=== PATIENT | female | born 1945 | race Caucasian/White ===

== ENCOUNTER → 2017-07-16 15:29 | Outpatient (CLI) | payer MEDICARE, SELFPAY | PROVIDERS: Family Provider Family Medicine; PCP Family Medicine; Visit Provider Family Medicine | DX: R30.0 Dysuria (principal) | CPT/HCPCS: 87086; 87088 ==

== ENCOUNTER 2017-08-05 19:05 | Emergency (ER) | payer MEDICARE, SELFPAY ==
[2017-08-05 19:08] VITALS: BP 169/74; PULSE 85; RESP 14; TEMP 37.1; O2SAT 97; BMI 25.2
[2017-08-05 19:25] VITALS: BP 142/71; PULSE 79; RESP 16; O2SAT 96
--- NOTE | 2017-08-05 19:28 | EKG12_ITS ---
Test Reason : REPEAT Blood Pressure : / mmHG Vent. Rate : 076 BPM Atrial Rate : 076 BPM P-R Int : 194 ms QRS Dur : 080 ms QT Int : 376 ms P-R-T Axes : -04 032 026 degrees QTc Int : 423 ms Normal sinus rhythm Normal ECG Confirmed by MAX KING MD ([id number]), content editor ANDREW LAMA ([id number]) on 08/07/2017 2:16:01 PM Referred By: FABIEN Confirmed By:MAX KING MD
[2017-08-05 19:54] LABS: Absolute Neutrophil Count 7.2 X10^3/uL (2.0-7.7); Basophil# 0.03 X10^3/uL; Basophil% 0.3 % (0-1); Eosinophil# 0.27 X10^3/uL; Eosinophils% 2.7 % (0-5); Hematocrit 37.3 % (37-47); Hemoglobin 11.9 g/dl (12.0-15.0); Lymphocyte % 16.8 % (19-41); Mean Corp Hgb Conc 31.9 g/gl (32-36); Mean Corpuscular Hgb 28.2 pg (27.0-32.0); Mean Corpuscular Volume 88.4 fL (81-99); Mean Platelet Vol. 9.4 fl (6.2-12.0); Monocyte# 0.85 X10^3/uL; Monocyte% 8.4 % (0-10); Neutrophil # 7.23 X10^3/uL (2.7-7.7); Neutrophil % 71.6 % (47-70); Platelet Count 380 K/mm3 (150-450); RBC Distribution Width CV 13.8 % (11.6-14.6); RBC Distribution Width SD 44.6 fl (35.1-43.9); Red Blood Count 4.22 M/mm3 (4.2-5.4); White Blood Count 10.1 K/mm3 (4.4-11.0)
[2017-08-05 19:55] LABS: POSITIVE COUNT NO; POSITIVE DIFFERENTIAL NO; POSITIVE MORPHOLOGY NO
--- NOTE | 2017-08-05 19:55 | RAD_ITS ---
STUDY: X-RAY CHEST REASON FOR EXAM: Female, 72 years old. PATIENT STATES WAS HAVING CHEST PAINS EARLIER WHICH RADIATING UP INTO JAW, BUT SEEMS TO BE GONE NOW. HX OF LEFT BREAST CA IN 1999 WITH A LUMPECTOMY. TECHNIQUE: Frontal and lateral views of the chest. COMPARISON: January 25, 2015 FINDINGS: Chronic appearing increased interstitial lung markings. The lung rivas are hyperexpanded. There is no demonstrated pleural abnormality. Normal heart size. Normal mediastinum and jeremías. Normal visualized pulmonary arteries. There is atherosclerotic calcification of the aortic arch with tortuosity. There are diffuse degenerative changes of the visualized thoracic spine. There is degenerative osteoarthritis of the bilateral shoulders. There is no demonstrated abnormality of the visualized soft tissue structures of the upper abdomen. RAD/Chest PA and Lateral IMPRESSION: There are no acute findings. Electronically Signed: Nagi Darden MD at 20:09 EDT , Service support ,
[2017-08-05 20:08] LABS: Anion Gap 10 (5-15); BUN 24 mg/dL (7-18); BUN/Creat Ratio 34.6 RATIO (10-20); Calcium,Total 8.9 mg/dL (8.5-10.1); Chloride 102 mmol/L (98-107); Creatinine, Serum 0.69 mg/dL (0.55-1.02); EST Glomerular Filtration Rate 88 mL/min (>60); Est Glom Filt Rate - Afr Amer 106 mL/min (>60); Estimated Creatinine Clearance 39.04 ml/min; Glucose 90 mg/dL (74-106); Potassium 4.1 mmol/L (3.5-5.1); Sodium Level 138 mmol/L (136-145)
[2017-08-05 20:19] VITALS: BP 154/73; PULSE 78; RESP 20; O2SAT 96
--- NOTE | 2017-08-05 20:44 | ED.DCSUM_ITS ---
- ER Visit Summary Date of Service: 08/05/17 Chief Complaint: Chest tightness History of Present Illness: Patient is an elderly woman who presents with chest tightness that started on the left side went to the right. There was radiation to the jaw bilaterally. She denied any associated symptoms. This occurred at rest. Pain lasted greater than 1 hour. States she had a similar presentation approximate 1 year ago and was seen at the [facility] facility. She had a workup at that time which was unremarkable. Her workup did include a stress test. She denies fever, chills night sweats. Denies visual, ocular or auditory symptoms. She denies palpitations or racing heart rate. She denies shortness of breath, cough, dyspnea on exertion or orthopnea. She denies abdominal pain, nausea, vomiting or diarrhea. She denies black or maroon stool. She denies any urologic symptoms. She denies myalgias arthralgias or back pain. She denies weakness, paresthesia, anesthesia motor weakness. She denies any problems with bleeding or bruising easily. She denies urticaria or angioedema. She does have history of asthma and hypertension. She did have a PE status post foot surgery several years ago. Physical Examination: Vital signs remarkable for slight elevation blood pressure 142/71. She pleasant woman in no distress. States she is presently pain-free. The time EKG was done her pain had resolved. HEENT exam is unremarkable. Heart is regular without murmur, gallop or rub. S1 and S2 are normal. Lungs are clear to auscultation with good movement of air bilaterally. There is no reproducible chest pain. Given is soft nontender with no hepatosplenomegaly. Negative Voss sign. There is no asymmetry, swelling, discoloration, leg vein distention, palpable cords or tenderness along the distribution of the deep venous system. Patient is alert and oriented ?3. Motor is 5 over 5. Sensory is intact. DTRs are symmetric with no clonus or Babinski sign. Cranial 2 through 12 are intact. Cerebellar testing is normal. Test Results: EKG revealed a sinus rhythm rate of 84 and normal. This is care. 2 prior and unchanged. Chest x-ray was obtained and reveals normal mediastinum, discolored silhouette and lung parenchyma. Initial blood work was unremarkable including troponin. Repeat EKG normal sinus rhythm rate of 78 and normal. Three-hour troponin less than 0.02 with a delta of 0. Emergency Department Course and Treatment: Valuate patient's chest tightness EKG , chest x-ray appropriate blood work was obtained to evaluate for cardiac versus pulmonary versus GI. After discussing options will obtain a 3 hour troponin EKG. This was ordered for 20-30. Treatment Plan: Heart score is 2. With 2 normal EKGs to normal troponin and history of similar episode a year ago with negative workup will discharge to follow-up with her primary care physician Dr. Calhoun Disposition: Discharged to home in stable condition Impression: Chest pain uncertain etiology History of hypertension History of asthma This note was generated with [employer] dictation software. It may contain incorrect words, spelling, and punctuation that were not noted in review of the chart prior to signing ED Disposition - Plan for ED Patient: Disposition: Home or Assisted Living Chief Complaint: Chest Pain Instructions: ED Chest Pain Atypical Unkn Cause Referrals: Jani Alfaro MD [Primary Care Provider] - 2 Days
[2017-08-05 21:54] VITALS: BP 131/70; PULSE 77; RESP 20; O2SAT 94
--- NOTE | 2017-08-05 22:32 | EKG12_ITS ---
Test Reason : CP Blood Pressure : / mmHG Vent. Rate : 084 BPM Atrial Rate : 084 BPM P-R Int : 168 ms QRS Dur : 086 ms QT Int : 356 ms P-R-T Axes : 075 027 014 degrees QTc Int : 420 ms Normal sinus rhythm Normal ECG Confirmed by MAX KING MD ([id number]), assistant film editor ANDREW LAMA ([id number]) on 08/07/2017 2:35:00 PM Referred By: FABINE Confirmed By:MAX KING MD
[2017-08-05 22:43] VITALS: BP 122/77; PULSE 75; RESP 16; O2SAT 96
[2017-08-05 23:15] VITALS: BP 129/73; PULSE 77; RESP 18; O2SAT 94
== END 2017-08-05 23:15 | disposition home or self-care (01) ==
PROVIDERS: Emergency Provider Emergency Medicine; Family Provider Family Medicine; PCP Family Medicine
DX: R07.9 Chest pain, unspecified (principal); I10 Essential (primary) hypertension; J45.909 Unspecified asthma, uncomplicated
CPT/HCPCS: 36415; 71046; 80048; 84484; 85025; 93005; 99284; A4216

== ENCOUNTER → 2017-08-27 06:56 | Outpatient (CLI) | payer MEDICARE, SELFPAY ==
--- NOTE | 2017-08-27 07:01 | CT_ITS ---
STUDY: CT CHEST WITH CONTRAST REASON FOR EXAM: Female, 72 years old. History of lung nodules. RADIATION DOSAGE (If Supplied By Facility): CTDIvol = ( 8.83 ) mGy, DLP = ( 264.35 ) mGycm TECHNIQUE: Transaxial imaging was performed following intravenous administration of 100 ml of Isovue 300 contrast material. Multiplanar coronal and sagittal images were reformatted. Individualized dose optimization techniques were used for this CT. COMPARISON: Comparison is made with prior study dated April 16, 2017. FINDINGS: Small benign-appearing bilateral axillary lymph nodes. Stable degree of mild bilateral apical scarring. The previously seen 1.4 cm x 1 cm x 1.3 cm nodular density along the anterior medial aspect of the right upper lobe has cleared. Minimal residual changes persist suggestive of possible scarring. No new pulmonary nodule is seen. Stable mild degree of linear scarring at the lung bases. There is no demonstrated pleural abnormality. There are calcifications of the coronary arteries. Normal mediastinum. Normal hilar regions. Normal enhanced pulmonary arteries. There is atherosclerotic calcification of the aortic arch. There are degenerative changes of the thoracic spine. There is no demonstrated abnormality of the visualized upper abdomen. CT/Chest WITH Contrast IMPRESSION: Mild scarring at the lung apices. The previously seen irregular nodule in the anterior medial aspect of the right upper lobe has cleared. Electronically Signed: Anil Carlin MD at 8:38 EDT Tel [phone], Service support ,
== END ==
PROVIDERS: Family Provider Family Medicine; PCP Family Medicine; Visit Provider Family Medicine
DX: R91.8 Other nonspecific abnormal finding of lung field (principal)
CPT/HCPCS: 71260

== ENCOUNTER → 2017-11-19 08:40 | Outpatient (CLI) | payer MEDICARE, SELFPAY | PROVIDERS: Family Provider Family Medicine; PCP Family Medicine; Visit Provider Family Medicine | DX: R13.10 Dysphagia, unspecified (principal); M89.9 Disorder of bone, unspecified; M94.9 Disorder of cartilage, unspecified | CPT/HCPCS: 74220 ==

== ENCOUNTER → 2017-11-27 12:56 | Outpatient (CLI) | payer MEDICARE, SELFPAY | PROVIDERS: Family Provider Family Medicine; PCP Family Medicine; Visit Provider Family Medicine | DX: M89.9 Disorder of bone, unspecified (principal); M94.9 Disorder of cartilage, unspecified | CPT/HCPCS: 77080 ==

== ENCOUNTER → 2017-12-20 10:03 | Outpatient (CLI) | payer MEDICARE, SELFPAY ==
[2017-12-20 12:52] LABS: Anion Gap 7 (5-15); BUN 20 mg/dL (7-18); BUN/Creat Ratio 25.1 RATIO (10-20); Calcium,Total 9.2 mg/dL (8.5-10.1); Chloride 104 mmol/L (98-107); Cholesterol 205 mg/dL (200); EST Glomerular Filtration Rate 75 mL/min (>60); Est Glom Filt Rate - Afr Amer 90 mL/min (>60); Glucose 91 mg/dL (74-106); High Density Lipoprotein 45 mg/dL; Potassium 4.1 mmol/L (3.5-5.1); Sodium Level 140 mmol/L (136-145); Thyroid Stim Hormone (TSH) 0.89 uIU/mL (0.358-3.74); Triglycerides 106 mg/dL; Very Low Density Lipoprotein 21 mg/dL (5-40)
[2017-12-21 08:29] LABS: Vitamin D,25 Hydroxy 24.2 ng/mL (29.95-100.01)
== END ==
PROVIDERS: Family Provider Family Medicine; PCP Family Medicine; Visit Provider Family Medicine
DX: E03.9 Hypothyroidism, unspecified (principal); I10 Essential (primary) hypertension; M89.9 Disorder of bone, unspecified; M94.9 Disorder of cartilage, unspecified
CPT/HCPCS: 36415; 80048; 80061; 82306; 84443

== ENCOUNTER → 2018-04-03 10:59 | Outpatient (CLI) | payer MEDICARE, SELFPAY ==
--- NOTE | 2018-04-03 11:06 | RAD_ITS ---
STUDY: X-RAY - RIGHT HIP REASON FOR EXAM: Female, 72 years old. TECHNIQUE: 2 views of the hip. COMPARISON: None. FINDINGS: There is narrowing and sclerosis involving the right hip joint consistent with osteoarthritis. 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
== END ==
PROVIDERS: Family Provider Family Medicine; PCP Family Medicine; Referring Provider Family Medicine; Visit Provider Family Medicine
DX: M25.559 Pain in unspecified hip (principal)
CPT/HCPCS: 73502

== ENCOUNTER → 2018-08-21 11:41 | Outpatient (CLI) | payer MEDICARE, SELFPAY ==
--- NOTE | 2018-08-21 11:49 | RAD_ITS ---
STUDY: X-RAY CHEST REASON FOR EXAM: Female, 73 years old. Fever and cough TECHNIQUE: PA and lateral views of the chest. COMPARISON: 08/05/2017 FINDINGS: The lungs are clear and expanded. There is no demonstrated pleural abnormality. Normal size heart. Normal mediastinum and jeremías. Normal visualized pulmonary arteries. There is atherosclerotic calcification of the aortic arch with tortuosity. Normal visualized thoracic spine. Normal visualized ribs, clavicles, and shoulders. There is no demonstrated abnormality of the visualized soft tissue structures of the upper abdomen. RAD/Chest PA and Lateral IMPRESSION: Normal x-ray examination of the chest. Electronically Signed: Jakob Rubio MD at 12:29 EDT , Service support ,
== END ==
PROVIDERS: Family Provider Family Medicine; PCP Family Medicine; Referring Provider Family Medicine; Visit Provider Family Medicine
DX: J18.9 Pneumonia, unspecified organism (principal)
CPT/HCPCS: 71046

== ENCOUNTER → 2018-11-05 14:28 | Outpatient (CLI) | payer MEDICARE, SELFPAY ==
[2018-11-05 16:25] LABS: Anion Gap 6 (5-15); BUN 20 mg/dL (7-18); BUN/Creat Ratio 22.5 RATIO (10-20); Calcium,Total 9.2 mg/dL (8.5-10.1); Chloride 105 mmol/L (98-107); Cholesterol 221 mg/dL (200); Creatinine, Serum 0.89 mg/dL (0.55-1.02); EST Glomerular Filtration Rate 66 mL/min (>60); Est Glom Filt Rate - Afr Amer 80 mL/min (>60); Glucose 81 mg/dL (74-106); High Density Lipoprotein 55 mg/dL; Potassium 3.7 mmol/L (3.5-5.1); Sodium Level 141 mmol/L (136-145); Thyroid Stim Hormone (TSH) 1.05 uIU/mL (0.358-3.74); Triglycerides 123 mg/dL; Very Low Density Lipoprotein 25 mg/dL (5-40)
== END ==
PROVIDERS: Family Provider Family Medicine; PCP Family Medicine; Referring Provider Family Medicine; Visit Provider Family Medicine
DX: I10 Essential (primary) hypertension (principal); M85.80 Other specified disorders of bone density and structure, unspecified site
CPT/HCPCS: 80048; 80061; 82306; 84443

== ENCOUNTER 2019-03-31 07:10 | Emergency (ER) | payer MEDICARE, SELFPAY ==
[2019-03-31 07:11] VITALS: BP 168/91; PULSE 91; RESP 18; TEMP 36.7; O2SAT 97; BMI 26.6
--- NOTE | 2019-03-31 07:28 | EKG12_ITS ---
Test Reason : CP Blood Pressure : / mmHG Vent. Rate : 093 BPM Atrial Rate : 093 BPM P-R Int : 208 ms QRS Dur : 084 ms QT Int : 364 ms P-R-T Axes : 041 030 028 degrees QTc Int : 452 ms Normal sinus rhythm Normal ECG Confirmed by MAX KING MD ([id number]), editor index ANDREW LAMA ([id number]) on 04/03/2019 9:23:00 AM Referred By: Confirmed By:MAX KING MD
[2019-03-31 07:32] VITALS: BP 165/75; PULSE 85; RESP 14; O2SAT 97
[2019-03-31 07:37] LABS: Hematocrit 36.2 % (37-47); Hemoglobin 11.6 g/dL (12.0-15.0); Mean Corpuscular Hgb 28.6 pg (27.0-32.0); Mean Corpuscular Volume 89.4 fL (81-99); Mean Platelet Vol. 9.6 fl (6.2-12.0); Platelet Count 345 K/mm3 (150-450); RBC Distribution Width CV 12.7 % (11.6-14.6); RBC Distribution Width SD 41.7 fl (35.1-43.9); Red Blood Count 4.05 M/mm3 (4.2-5.4); White Blood Count 5.3 K/mm3 (4.4-11.0)
--- NOTE | 2019-03-31 07:45 | ED.VIS.GEN ---
History of Present Illness Chief Complaint: Chest Pain Informant: Patient, Significant Other Onset: Days Quality: Set 3 days ago Location: Right lower costal margin with radiation to left anterior chest Current Severity: - - Initially no symptoms. Patient had several episodes during H&P Maximum Severity: Mild Worsened by: Nothing Relieved by: Nothing Narrative: Patient is a 66-year-old woman with history of hypertension and elevated cholesterol on no cholesterol medication who presents with fleeting right-sided chest pain that she locates lower right sternal border that lasts seconds. She states it has radiated to the left side. There is no associated symptoms. There is no radiation to the neck back or extremities. The pain is not associated with activity, change in position or food. There is no history of hiatal hernia or reflux. She denies black or maroon stool. She does have remote history of PE, 6 years ago after foot surgery. She also reports remote history of problem with vision. She cannot be specific whether this was unilateral or blurred vision or partial loss of vision. She was seen by her local edger machine setter and referred to Dr. Boateng who is affiliated with the [facility]. No etiology was determined. Prior similar symptoms: No Recent Illness/Hospitalization: No - Past Medical History (1) History of hypertension Status: Acute (2) History of elevated cholesterol Status: Acute Past Medical History - Allergies and Home Meds Allergies/Adverse Reactions: Allergies No Known Allergies Allergy (Verified 03/31/19 07:13) Primary Care Physician: Jani Alfaro MD [Primary Care Provider] - Prior records reviewed: Yes Surgical History: noncontributory Lives: Spouse/ Significant Other Smoking Status: Never smoker Alcohol: Rare Drugs: None Review of Systems General: Denies: Chills, Fever, Sweats Eyes: Reports: - - Is read HPI. Denies: Visual changes - bilaterally, Blurred Vision - bilaterally, Diplopia ENT: Denies: Rhinorrhea, Sore throat Cardiovascular: Reports: Chest pain Respiratory: Denies: Dyspnea, Cough, Dyspnea on exertion Gastrointestinal: Denies: Abdominal pain, Nausea, Vomiting, Diarrhea, Melena, Hematochezia Genitourinary: Denies: Dysuria, Hematuria, Frequency Musculoskeletal: Denies: Myalgias, Arthralgias, Neck pain, Back pain, Swelling, Extremity Pain Skin: Denies: Rash, Wounds Neurological: Denies: Headache, Weakness, Numbness Hematologic: Denies: Easy bruising, Easy bleeding Allergy: Denies: Uticaria Physical Exam Vital Signs/Narrative: Vital Signs Temp Pulse Resp BP Pulse Ox 03/31/19 07:32 85 14 165/75 H 97 03/31/19 07:11 98.1 F 91 18 168/91 H 97 Inital Vital Signs reviewed: Yes General: Well nourished, Well developed, No Acute Distress Head: Normocephalic, Atraumatic Eyes: Perrl, EOMI. Negative for: Pale conjunctiva, Scleral icterus ENT: Moist mucous membranes, No rhinorrhea Neck: Supple, Nontender, No lymphadenopathy, No JVD Cardiovascular: Regular rate, Regular rhythm, No murmurs, Normal S1, Normal S2 Respiratory: No distress, CTA bilaterally, Chest nontender Abdomen: Soft, Nontender, Nondistended, Normal bowel sounds, No masses Back: Nontender, Normal Inspection Extremities: Nontender, No edema, - - There is no discoloration, swelling, asymmetry, leg vein distention or palpable cords. Skin: Normal color, No rash Neurological: Alert, Oriented x3, Cranial nerves II-XII grossly intact, Normal Strength, Normal Sensation Psychological: Normal affect, Normal Mood Diagnostic/Tx/Re-eval Laboratory Results 03/31/19 03/31/19 07:25 07:25 WBC 5.3 RBC 4.05 L Hgb 11.6 L Hct 36.2 L MCV 89.4 MCH 28.6 MCHC 32.0 RDW Std Deviation 41.7 RDW Coeff of Ankush 12.7 Plt Count 345 MPV 9.6 Sodium 139 Potassium 3.9 Chloride 104 Carbon Dioxide 30.0 Anion Gap 5 BUN 24 H Creatinine 0.92 Estim Creat Clear Calc 41.79 Est GFR (MDRD) Af Amer 76 Est GFR (MDRD) Non-Af 63 BUN/Creatinine Ratio 26.0 H Glucose 93 Calcium 8.8 Troponin I < 0.015 Troponin is normal. Renal function is normal. There is mild anemia with an H&H 11.6 and 36.2 which is insignificant. - Rhythm Strip Rhythm Strip: Sinus Rhythm Rate: 88 Ectopy: PAC(s) - EKG Initial EKG Interpretation: Sinus Rhythm - Sinus rhythm with a ventricular rate of 93. VA interval is 208 ms. QRS duration 84 ms. QT duration is 364 ms. The axis is normal. The EKG is normal. - Medical Decision Making With fleeting chest pain atypical for cardiac. This may represent musculoskeletal, pain of unknown cause doubt pleurisy. Since patient is an elderly woman with history of hypertension we will obtain a troponin in the event this is an atypical cardiac presentation. X-ray was not obtained since there were no auscultatory findings. CBC was obtained to assess for anemia. Patient's heart score is 3 for 1 risk factor and age ED Disposition - Plan for ED Patient: Disposition: Home or Assisted Living Diagnosis: Chest pain Instructions: CHEST PAIN, NonCardiac Referrals: Jani Alfaro MD [Primary Care Provider] - 3-5 Days if not improving
[2019-03-31 07:51] LABS: Anion Gap 5 (5-15); BUN 24 mg/dL (7-18); Calcium,Total 8.8 mg/dL (8.5-10.1); Chloride 104 mmol/L (98-107); Creatinine, Serum 0.92 mg/dL (0.55-1.02); EST Glomerular Filtration Rate 63 mL/min (>60); Est Glom Filt Rate - Afr Amer 76 mL/min (>60); Estimated Creatinine Clearance 41.79 ml/min; Glucose 93 mg/dL (74-106); Potassium 3.9 mmol/L (3.5-5.1); Sodium Level 139 mmol/L (136-145)
[2019-03-31 08:17] VITALS: BP 145/78; PULSE 62; RESP 15; O2SAT 98
== END 2019-03-31 08:17 | disposition home or self-care (01) ==
PROVIDERS: Emergency Provider Emergency Medicine; Family Provider Family Medicine; PCP Family Medicine
DX: R07.89 Other chest pain (principal); E78.00 Pure hypercholesterolemia, unspecified; I10 Essential (primary) hypertension; Z86.711 Personal history of pulmonary embolism
CPT/HCPCS: 80048; 84484; 85027; 93005; 99285; A4216

== ENCOUNTER → 2019-07-18 08:04 | Outpatient (CLI) | payer MEDICARE, SELFPAY ==
[2019-06-16 08:16] VITALS: BMI 27.2
--- NOTE | 2019-07-18 14:22 | PFT ---
INTRODUCTION: The patient is a 74-year-old female that presents for pulmonary function studies secondary to a diagnosis of asthma. Respiratory therapy reports good patient effort. Bronchodilators were used during testing. INTERPRETATION: Forced expiration spirometry demonstrates the presence of a moderate large airways obstructive ventilatory defect. There was a significant response to aerosolized bronchodilators noted. Spirograms are of good quality and do not plateau indicating slow emptying of the lungs. Body plus tomography was performed and reveals an elevated TLC and RV, indicative of underlying hyperinflation and air trapping. Diffusing capacity by single breath CO is preserved at 94% of predicted. IMPRESSION: Partially reversible moderate large airways obstructive ventilatory defect with associated hyperinflation and air trapping. Diffusing capacity is preserved.
== END ==
PROVIDERS: PCP Family Medicine; Referring Provider Internal Medicine Critical Care Medicine; Visit Provider Internal Medicine Critical Care Medicine
DX: J45.909 Unspecified asthma, uncomplicated (principal)
CPT/HCPCS: 94060; 94726; 94729

== ENCOUNTER → 2019-11-24 09:20 | Outpatient (CLI) | payer MEDICARE, SELFPAY ==
[2019-10-07 05:41] VITALS: BMI 27.4
[2019-11-24 12:41] LABS: Vitamin D,25 Hydroxy 33.6 ng/mL
[2019-11-24 12:51] LABS: Anion Gap 5 (5-15); BUN 17 mg/dL (7-18); BUN/Creat Ratio 19.4 RATIO (10-20); Chloride 104 mmol/L (98-107); Cholesterol 261 mg/dL (200); Creatinine, Serum 0.88 mg/dL (0.55-1.02); EST Glomerular Filtration Rate 67 mL/min (>60); Est Glom Filt Rate - Afr Amer 81 mL/min (>60); Glucose 86 mg/dL (74-106); High Density Lipoprotein 51 mg/dL; Potassium 3.8 mmol/L (3.5-5.1); Sodium Level 141 mmol/L (136-145); Thyroid Stim Hormone (TSH) 1.46 uIU/mL (0.358-3.74); Triglycerides 163 mg/dL; Very Low Density Lipoprotein 33 mg/dL (5-40)
== END ==
PROVIDERS: PCP Family Medicine; Referring Provider Family Medicine; Visit Provider Family Medicine
DX: M85.80 Other specified disorders of bone density and structure, unspecified site (principal); I10 Essential (primary) hypertension
CPT/HCPCS: 36415; 80048; 80061; 82306; 84443

== ENCOUNTER → 2019-12-02 08:50 | Outpatient (CLI) | payer MEDICARE, SELFPAY ==
[2019-10-07 05:41] VITALS: BMI 27.4
--- NOTE | 2019-12-02 08:55 | BD_ITS ---
STUDY: DUAL ENERGY X-RAY ABSORPTIOMETRY / DXA REASON FOR EXAM: Female, 74 years old. LEGAL AID -- HX OF BREAST CANCER AND HX OF TAMOXIFEN -- USES STEROID INHALER NEEDED -- HX OF TAKING THYROID MEDS- NO LONGER ON -- TAKES CALCIUM AND MULTIVITAMIN -- HX OF TAKING FOSAMAX -- DOES NO EXERCISE -- FAMILY HX OF OSTEO- MOTHER -- HX OF RIGHT HIP REPLACEMENT -- JAYNE OF 1 INCH TECHNIQUE: Bone Mineral Density (BMD) measurements of lumbar spine and left hip were obtained. COMPARISON: Comparison is made with prior examination dated 11/27/2017. FINDINGS: Lumbar Spine (L1-L4): g/cm2 (1.037) / T-score (-1.1) / Z-score (0.7) Findings are suggestive of osteopenia with a low fracture risk. Left Femur Total: g/cm2 (0.750) / T-score (-2.0) / Z-score (-0.2) Left Femoral Neck: g/cm2 (0.753) / T-score (-2.1) / Z-score (-0.1) The T-Scores on the most recent prior examination were: Lumbar Spine (L1-L4): There has been worsening of bone density since the previous examination. Left Femur Total: which represents an improvement of 3.7%. BD/Dexa Bone Density Study IMPRESSION: The patient is considered osteopenic as outlined below according to World Av Organization (WHO) criteria with a moderate fracture risk. There has been worsening of bone density since the previous examination. Reference Information: The T-score is the number of standard deviations above or below the standard which is normal for young adults at their peak bone mineral density. The World Health Organization (WHO) interprets the T-scores as follows: Above -1 Normal bone density Between -1 and -2.5 Osteopenia Equal to / or below -2.5 Osteoporosis As a practical clinical guideline, osteopenia may be graded as follows: Mild -1 through -1.5 Moderate -1.6 through -2.0 Severe -2.1 through -2.4 The Z-score is the number of standard deviations above or below age-matched controls. A Z-score of less than -1.5 would be considered abnormal. References: 1. NIH Osteoporosis and Related Bone Diseases http://www.osteo.org 2. International Society for Clinical Densitometry http://www.iscd.org 3. National Osteoporosis Foundation http://www.nof.org Electronically Signed: Anil Carlin, at 12:32 EDT , Service support ,
== END ==
PROVIDERS: PCP Family Medicine; Referring Provider Family Medicine; Visit Provider Family Medicine
DX: Z78.0 Asymptomatic menopausal state (principal)
CPT/HCPCS: 77080

== ENCOUNTER → 2020-09-02 16:41 | Outpatient (CLI) | payer MEDICARE, SELFPAY ==
[2020-03-23 10:45] VITALS: BMI 28.3
[2020-09-02 17:47] LABS: Absolute Lymphocyte Count 1.51 X10^3/uL (0.83-4.51); Basophil# 0.04 X10^3/uL; Basophil% 0.5 % (0-1); Eosinophils% 3.9 % (0-5); Hematocrit 36.4 % (37-47); Hemoglobin 11.7 g/dL (12.0-15.0); Lymphocyte # 1.51 X10^3/ul (0.83-4.51); Lymphocyte % 19.8 % (19-41); Mean Corp Hgb Conc 32.1 g/dL (32-36); Mean Corpuscular Hgb 29.3 pg (27.0-32.0); Mean Platelet Vol. 9.9 fl (6.2-12.0); Monocyte# 0.71 X10^3/uL; Monocyte% 9.3 % (0-10); NRBC Flagged by Analyzer 0 % (0-5); Neutrophil # 5.03 X10^3/uL (2.7-7.7); Neutrophil % 66.2 % (47-70); Platelet Count 338 K/mm3 (150-450); RBC Distribution Width CV 12.6 % (11.6-14.6); RBC Distribution Width SD 41.6 fl (35.1-43.9); White Blood Count 7.6 K/mm3 (4.4-11.0)
[2020-09-02 17:57] LABS: Vitamin B12 430 pg/mL (211-911); Vitamin D,25 Hydroxy 43.9 ng/mL
[2020-09-02 18:00] LABS: Erythrocyte Sedimentation Rate 18 mm/hr (0-30)
[2020-09-02 18:09] LABS: AST(SGOT) 28 U/L (15-37); Alanine Aminotransfer ALT/SGPT 23 U/L (13-56); Albumin, Serum 3.8 g/dL (3.2-5.0); Alkaline Phosphatase 104 U/L (45-117); Anion Gap 4 (5-15); BUN 27 mg/dL (7-18); BUN/Creat Ratio 28.3 RATIO (10-20); Chloride 101 mmol/L (98-107); Creatinine, Serum 0.96 mg/dL (0.55-1.02); EST Glomerular Filtration Rate 60 mL/min (>60); Est Glom Filt Rate - Afr Amer 73 mL/min (>60); Globulin 3.7 g/dL (2.2-4.2); Glucose 84 mg/dL (74-106); Potassium 3.8 mmol/L (3.5-5.1); Protein, Total 7.5 g/dL (6.4-8.2); Sodium Level 137 mmol/L (136-145); Thyroid Stim Hormone (TSH) 1.37 uIU/mL (0.358-3.74)
== END ==
PROVIDERS: PCP Family Medicine; Referring Provider Family Medicine; Visit Provider Family Medicine
DX: R53.83 Other fatigue (principal)
CPT/HCPCS: 36415; 80053; 82306; 82607; 84443; 85025; 85652

== ENCOUNTER → 2020-09-07 09:45 | Outpatient (CLI) | payer MEDICARE, SELFPAY ==
[2020-03-23 10:45] VITALS: BMI 28.3
--- NOTE | 2020-09-07 09:50 | RAD_ITS ---
STUDY: X-RAY - LUMBAR SPINE REASON FOR EXAM: Female, 75 years old. LUMBAGO TECHNIQUE: 5 view(s) of the lumbar spine were obtained including oblique views. COMPARISON: None FINDINGS: Normal lumbar lordosis. There is a minimal dextroscoliosis of the lumbar spine. Minimal degree of anterior listhesis of L4 on L5. Normal vertebral bodies and endplates. There is multi-level degenerative disc disease with multi-level disc space narrowing. Facet joint osteoarthritis. The soft tissue structures are unremarkable. RAD/L/S Spine Min 4 Views IMPRESSION: Degenerative changes of the spine, as detailed above. Minimal degree of anterior listhesis of L4 on L5 most likely secondary facet joint osteoarthritis. Electronically Signed: Anil Carlin MD at 15:00 EDT , Service support ,
== END ==
PROVIDERS: PCP Family Medicine; Referring Provider Family Medicine; Visit Provider Family Medicine
DX: M54.5 Low back pain (principal)
CPT/HCPCS: 72110

== ENCOUNTER 2020-10-21 11:30 | Outpatient (RCR) | payer MEDICARE, SELFPAY ==
[2020-03-23 10:45] VITALS: BMI 28.3
--- NOTE | 2020-09-14 10:09 | HP.PTEVAL ---
Patient's Visit Information REG DORSEY is a 75 year old F referred to Physical Therapy by Dr. Jani Alfaro MD with a diagnosis of ARTHRITIS OF LUMBAR SPINE. Date of Evaluation: 09/14/20 Physical Therapist: Mateo Parsons PT, Cert MDT, OCS - Visit Plan Frequency: 2x /Week Duration: 4 Weeks Plan: PT INTERVETIONS DLS ,LUMBAR FLEXION,POSTURAL EX'S AND POSTURE/BODY MECHANICS - Subjective This 75 y/o female presents to physical therapy with lumbar pain with left leg symptoms. Patient has mainly symptoms in left leg with pain and tiredness in bilateral legs. Patient seen DR x-rays showed DDD anteriorlothesis. Aggravating factors walking ~10min ,standing ~10 mins with fatigue in hamstrings. Alleviating factors sitting and rest. Denies parathesia/tingling. Bowel/bladder -. Coughing/sneezing-. Patient has no abnormal night pain. Patient is able to sleep. Patient has no h/o trauma.Patient has no treatment. Patient pain affects QOL and function. Patient major c/o fatigue pain in legs. COMORBITIES: bilateral TKR,RIGHT THR. SOCIAL: . VOCATION: retired - Objective POSTURE: WFL. PALAPTION: unremarkable. NEURO: denies parathesia/tingling ,reflexes L3-,L4-L5,L5-S1 1/3. FLEXABLITY: hams WFL. symmetries: ALIGN. LUMBAR ROM: flexion WNL, extension mod loss ,side glides mild loss - Special Tests L/S Slump test left side: Negative L/S Slump test right side: Negative L/S Left Straight Leg Raise: Negative L/S Right Straight Leg Raise: Negative Lumbar Standing: Flexion - Mechanical Response: No effect Lumbar Standing: Flexion - Symptoms During Testing: No effect Lumbar Standing: Flexion - Symptoms After Testing: No effect Lumbar Standing: Extension - Mechanical Response: No effect Lumbar Standing: Extension - Symptoms During Testing: Increases Lumbar Standing: Extension - Symptoms After Testing: No worse Lumbar Standing: Right Side Glides - Mechanical Response: No effect Lumbar Standing: Right Side Kingman - Symptoms During Testing: No effect Lumbar Standing: Right Side Kingman - Symptoms After Testing: No effect Lumbar Standing: Left Side Kingman - Mechanical Response: No effect Lumbar Standing: Left Side Kingman - Symptoms During Testing: No effect Lumbar Standing: Left Side Kingman - Symptoms After Testing: No effect - Goals Goal 1:: I with HEP Goal Time Frame: 4-6 Weeks Goal 2:: Improve posture for ADL'S Goal Time Frame: 4-6 Weeks Goal 3:: Patient to improve lumbar ROM for function of recovery Goal Time Frame: 4-6 Weeks Goal 4:: Patient to decrease lumbar pain by 50% or > to improve function and QOL with walking and standing Goal Time Frame: 4-6 Weeks Goal 5:: Patient to improve back owestry score by 5 points or > to improve function and QOL. Goal Time Frame: 4-6 Weeks - Rehabilitation Potential Physical Therapy Diagnosis: This patient has lower leg pain with walking and/or standing affecting ability to perform ADL's and housework tasks and walking in community better with sitting and rest thus benefit from skilled PT Rehabilitation Potential: Good - Anticipated Interventions Patient/Client Instruction: Educate patient on: Condition, Plan of Care For the Purpose of:: To decrease pain, To increase ROM, To improve muscle performance and motor function, To improve ability to perform ADL's, To increase tolerance to activity/condition/position, To improve performance and independence with ADL's, To improve health of tissue, To decrease soft tissue restriction, To increase flexibility/ROM, To reduce risk of recurrence, To improve health and function, To improve ability to perform tasks related to life management Therapeutic Exercise to Include: Strength training, Body mechanics, Postural training, Flexibilty training, Active ROM, Dynamic Lumbar Stabilization For the Purpose of:: To decrease pain, To increase ROM, To improve health of tissue, To decrease soft tissue restriction, To increase flexibility/ROM, To reduce risk of recurrence, To improve health and function, To improve ability to perform tasks related to life management Thank you for the opportunity to evaluate your patient. For Medicare and Medicare HMO plans, please review the plan of care and approve it. It will need to be FAXED BACK to us at [phone] for Medicare purposes. For Medicare only, by signing this I certify the plan of care. Please let me know if there are questions or concerns regarding this plan of care. Physician Signature: Date:
--- NOTE | 2020-10-21 11:59 | HP.PTDCSUM ---
It has been my pleasure to treat REG DORSEY referred by Dr. Jani Alfaro MD, with the diagnosis of ARTHRITIS OF LUMBAR SPINE for a total of 9 visit(s). Discharge Date: 10/21/20 Please see the following information for a summary of their discharge status. Subjective: doing well ready for d/c .. plan to do silver smeakes % Improvement: 80 Objective/Function: POSTURE: WFL. GAIT: RECIPROCAL PATTERN. MMT: QUADS/HAMS/HIP/ANKLD 4/5. LUMBAR ROM: FLEXION WFL ,EXTENSION MIN LOSS,SIDE GLIDES MIN LOSS Goal 1:: I with HEP Goal Progress: Goal Met Goal 2:: Improve posture for ADL'S Goal Progress: Goal Met Goal 3:: Patient to improve lumbar ROM for function of recovery Goal Progress: Goal Met Goal 4:: Patient to decrease lumbar pain by 50% or > to improve function and QOL with walking and standing Goal Progress: Goal Met Goal 5:: Patient to improve back owestry score by 5 points or > to improve function and QOL. Goal Progress: Goal Met Plan: D/C Discharge Comments: D/C TO POSSIBLE SILVER SNEAKERS If there are questions or concerns regarding this patient's physical therapy, please feel free to call me at [phone]. Thank you for the referral of this patient. Sincerely, Mateo Parsons PT, Cert MDT, OCS
== END 2020-10-21 19:00 | disposition home or self-care (01) ==
LOC: PT 11:30
PROVIDERS: PCP Family Medicine; Referring Provider Family Medicine; Visit Provider Family Medicine
DX: M47.816 Spondylosis without myelopathy or radiculopathy, lumbar region (principal)
CPT/HCPCS: 97110; 97162

== ENCOUNTER → 2020-11-04 15:14 | Outpatient (CLI) | payer MEDICARE, SELFPAY ==
[2020-09-22 10:09] VITALS: BMI 28.3
[2020-11-04 15:50] LABS: Bacteria 0 SEEN /hpf (None Seen); Mucous, Urine 0 SEEN /hpf (<or=2+)
[2020-11-04 16:17] LABS: Color, Urine Yellow (Yellow); Glucose, Dipstick Normal (Normal); Ketone-Dipstick Negative (Negative); Leukocyte Esterase-Dipstick Negative /ul (Negative); Nitrite-Dipstick Negative (Negative); Occult Blood-Urine Negative /ul (Negative); Protein-Dipstick Negative (Negative); Urine Bilirubin Dipstick Negative (Negative); Urine Clarity Clear (Clear); Urine Urobilinogen 1 mg/dl (Normal)
[2020-11-04 16:35] LABS: Hyaline Cast 0-5 SEEN /lpf (0-5); Squamous Epithelial Cells - UA 0-5 SEEN /hpf (5-10)
[2020-11-04 16:36] LABS: Red Blood Cells-Urine 0-5 SEEN /hpf (0-5); Transitional Epithelial - Ur 0-5 SEEN /hpf (0-5); White Blood Cells 0-5 SEEN /hpf (0-5)
== END ==
PROVIDERS: PCP Family Medicine; Referring Provider Family Medicine; Visit Provider Family Medicine
DX: R35.0 Frequency of micturition (principal)
CPT/HCPCS: 81001; 87086; 87088

== ENCOUNTER 2020-12-19 16:53 | Emergency (ER) | payer MEDICARE, SELFPAY ==
[2020-12-19 16:54] VITALS: BP 171/75; PULSE 92; RESP 16; TEMP 36.9; O2SAT 97; BMI 27.3
--- NOTE | 2020-12-19 18:33 | CT_ITS ---
EXAMINATION : Head CT w/out contrast HISTORY : headache COMPARISON : None. TECHNIQUE : Multiple contiguous axial images were obtained from the skull base to the vertex without intravenous contrast. A radiation dose optimization technique was used for this scan. FINDINGS : The ventricles and sulci are normal in size. There is no evidence for acute intracranial hemorrhage, mass effect, or midline shift. There is no extra-axial fluid collection. There is normal toure-white differentiation, without CT evidence of acute ischemia or infarct. The skull base and calvarium are unremarkable. The orbits are unremarkable. The paranasal sinuses are clear. The mastoid air cells are well-aerated. The soft tissues are unremarkable. CT/Brain/Head without Contrast IMPRESSION: No acute intracranial abnormality. Electronically Signed: Favio Mayfield MD at 19:11 EDT Tel , Service support ,
--- NOTE | 2020-12-19 20:00 | EDS_ITS ---
HPI History of Present Illness Chief Complaint: Other, Pain/Inj Informant: patient, spouse/S.O. and family Narrative Narrative: Patient complains that over the last few days she will occasionally get pain on the left side of her neck that will go up to the occipital area. It lasts for about 20 minutes usually. If she lays out on the table forward and stretches her neck and arm it seems to be better. When it is hurting if she presses on the area it makes it worse. She also noticed that putting heat on it seems to calm it down relatively quickly. She has never had any neurologic symptoms with this. No chest pain. No lightheadedness dizziness or near sy ncope. At first she said she did not have this before. However, she then stated she was having it but it seemed to go away. She saw her doctor. They did x-rays. They thought this was likely a pinched nerve and muscle spasm. She went through about 6 or 8 physical therapy sessions for this. She states she did not know if it helped but it did go away. This all occurred back in September or October. No recent trauma or injury. [facility] Medical History (Updated 12/19/20 @ 20:[address] Rafiq Bustos MD) Asthma without status asthmaticus Breast cancer Dyspepsia History of elevated cholesterol History of hypertension Obesity Home Medications lisinopril 10 mg PO DAILY 08/05/17 [History Last Taken Unknown] multivitamin 1 cap PO DAILY 06/13/19 [History Last Taken Unknown] albuterol sulfate 90 mcg/actuation aerosol inhaler 1 - 2 puff INHALATION PRN PRN #18 g 03/23/20 [Rx Last Taken Unknown] atorvastatin 20 mg tablet 20 mg PO DAILY 03/23/20 [History Last Taken Unknown] mometasone-formoterol HFA 100 mcg-5 mcg/actuation aerosol inhaler 2 puff INHALATION Q12H #13 g 09/22/20 [Rx Last Taken Unknown] Allergy/AdvReac Type Severity Reaction Status Date / Time animal dander Allergy Unknown Verified 12/19/20 16:57 DUST Allergy Unknown Uncoded 12/19/20 16:57 MOLD SPORES Allergy Unknown Uncoded 12/19/20 16:57 BEE STING AdvReac Swelling Uncoded 12/19/20 16:57 Family History Grandmother Cancer Pancreatic Father CHF (congestive heart failure) Grandfather CVA (cerebral vascular accident) Surgical History (Updated 12/19/20 @ 18:09 by Yusuf Kim) H/O total knee replacement Hip replacement planned History of lumpectomy History of suburethral sling procedure History of toe surgery Social History Smoking Status: Never smoker alcohol intake: current details: Occasionally wine. ROS ROS ED Constitutional Constitutional ED: Denies chills or fever(s) Eyes Eyes: Denies blurry vision ENT ENT ED: Denies ear pain, rhinorrhea or sore throat Cardiovascular Cardiovascular: Denies chest pain or palpitations Respiratory/Chest Respiratory/Chest: Denies cough or dyspnea Gastrointestinal Gastrointestinal: Denies nausea or vomiting Musculoskeletal Musculoskeletal: Reports neck pain; Denies arthralgias, back pain or myalgias Integumentary Denies rash Neurologic Neurologic: Reports other Details: See history of present illness. ; Denies paresthesias or weakness Endocrine Endocrinology: Denies polydipsia or polyuria Allergic/Immunologic Allergic/Immunologic ED: Denies urticaria EXAM Physical Exam Const Vital Signs: 12/19/20 16:54 12/19/20 18:06 Temperature 98.4 F Temperature Source Temporal Pulse Rate 92 Respiratory Rate 16 Respiratory Pattern Normal Blood Pressure 171/75 H Blood Pressure Mean 107 Pulse Ox 97 Oxygen Delivery Method Room Air Positive well nourished and well developed Constitutional Narrative: Sitting quietly in bed. She looks comfortable. She is also having no symptoms at this time. General Appearance ED: well developed and NAD HEENT HEENT Narrative: Is no tenderness or erythema. No sign of zoster. Negative for trauma or tenderness Eyes PERRL and EOMs intact bilaterally Neck supple Neck Narrative: No neck tenderness at this time. She states when she turns her head side to side she does feel little clicking and discomfort but it stops as soon as she stops moving. There is no meningismus. No mass. No lymphadenopathy. Resp normal respiratory effort and clear to auscultation bilaterally Cardio regular rate, regular rhythm and no murmurs GI normal to inspection, nondistended, normoactive bowel sounds and non-tender Palpation: soft Back/Spine Cervical Spine: Negative for cervical spine tenderness Thoracic Spine / Upper Back: Negative for thoracic spinal tenderness or paraspinal muscle tenderness Extremity normal to inspection General Extremety ED: Negative for edema or tenderness General Extremity: Negative for edema Neuro Sensorium / Orientation: alert Skin no rashes or lesions noted MDM MDM MDM Narrative Medical decision making narrative: I also found out from her that the patient has been sitting down a lot more recently. She had recurrent surgery for a great toe bunion. Since then she has been sitting in a chair bent over looking at her phone a lot. I think this is likely what has contributed to her recurrence of neck pain. However, we did do CT of the head to make sure there is no intracranial process. I am sure if we scan the neck we would see arthritic changes. It was x-rayed recently. I talked about options. The CT is normal. I think rest changing behavior and activity, ice or heat on the area should be appropriate. I am concerned that if we use muscle relaxants we may cause more instability and dizziness and induce a fall and this person who is a bit older and also has a foot splint on. She and the family agree. They are okay with home therapy. We discussed reasons to return. She should follow up with her physician. Radiography Diagnostic Testing: Radiology Impression Brain CT 12/19/20 18:33 IMPRESSION: No acute intracranial abnormality. Electronically Signed: Favio Mayfield MD at 19:11 EDT Tel , Service support , Discharge Plan Triage Chief Complaint: Other, Pain/Inj ED Provider: Rafiq Bustos Dx/Rx/DC Orders Clinical Impression: Strain of cervical portion of left trapezius muscle Instructions: Understanding Cervical Strain Prescriptions: No Action multivitamin capsule 1 cap PO DAILY RF: 0 atorvastatin 20 mg tablet 20 mg PO DAILY RF: 0 albuterol sulfate 90 mcg/actuation HFA aerosol inhaler 1 - 2 puff inhalation PRN PRN (Reason: Bronchospasm) Qty: 18 RF: 6 Dulera 100-5 mcg/actuation HFA aerosol inhaler 2 puff INHALATION Q12H Qty: 13 RF: 5 lisinopril 5 MG tablet 10 mg PO DAILY RF: 0 Primary Care Provider: Jani Alfaro Referrals: Jani Alfaro MD [Primary Care Provider] - 3-5 Days if not improving Disposition Disposition: Home, Self Care
[2020-12-19 20:24] VITALS: BP 159/90; PULSE 90; RESP 15; O2SAT 98
== END 2020-12-19 20:27 | disposition home or self-care (01) ==
PROVIDERS: Emergency Provider Emergency Medicine; PCP Family Medicine
DX: S16.1XXA Strain of muscle, fascia and tendon at neck level, initial encounter (principal); S46.812A Strain of other muscles, fascia and tendons at shoulder and upper arm level, left arm, initial encounter; E78.00 Pure hypercholesterolemia, unspecified; I10 Essential (primary) hypertension; J45.909 Unspecified asthma, uncomplicated; Z79.51 Long term (current) use of inhaled steroids; Z85.3 Personal history of malignant neoplasm of breast; X58.XXXA Exposure to other specified factors, initial encounter; Y92.9 Unspecified place or not applicable; Y99.9 Unspecified external cause status
CPT/HCPCS: 70450; 99282

== ENCOUNTER 2021-04-12 15:44 | Outpatient (CLI) | payer MEDICARE, SELFPAY ==
--- NOTE | 2021-04-12 15:49 | RAD_ITS ---
INDICATION: DDD, cervical EXAMINATION/TECHNIQUE: X-RAY - XR Spine Cervical 6 or More Views COMPARISON: 01/15/2017 cervical spine x-rays. FINDINGS: VERTEBRAE: Preserved vertebral body height. No fracture. No spondylolisthesis. Preservation of the normal cervical lordosis. Decreased motion at C5-6 on flexion and extension views. No spondylolisthesis. Multilevel, advanced facet arthropathy most notable at C3-4 through C5-6. DISCS: C4-5 through C6-7 disc height loss and endplate sclerosis and bony proliferative changes, most notably at C5-6. Multilevel moderately advanced uncovertebral joint arthropathy, most notable at C5-6 level. Oblique views are limited with suboptimal projection however there does appear to be some neuroforaminal narrowing at C3-4 through C5-6 levels secondary to facet and uncovertebral joint arthropathy. Limited assessment of the odontoid process on provided views. C1-C2 lateral patellar alignment is within normal limits though there are some degenerative changes. NECK SOFT TISSUES: No prevertebral soft tissue widening. LUNG APICES: Clear. RAD/Cerv Spine Obl/Flex/Ext Comp IMPRESSION: Multilevel degenerative changes as above. Electronically Signed: Guero Jerome DO at 21:41 EST Tel , Service support ,
[2021-04-12 18:01] LABS: Hematocrit 36.9 % (37-47); Mean Corp Hgb Conc 32.5 g/dL (32-36); Mean Corpuscular Hgb 29.8 pg (27.0-32.0); Mean Corpuscular Volume 91.6 fL (81-99); Mean Platelet Vol. 9.9 fl (6.2-12.0); Platelet Count 364 K/mm3 (150-450); RBC Distribution Width CV 12.7 % (11.6-14.6); RBC Distribution Width SD 42.4 fl (35.1-43.9); Red Blood Count 4.03 M/mm3 (4.2-5.4); White Blood Count 7.3 K/mm3 (4.4-11.0)
[2021-04-12 18:25] LABS: Erythrocyte Sedimentation Rate 27 mm/hr (0-30)
[2021-04-12 18:34] LABS: Vitamin B12 570 pg/mL (211-911)
[2021-04-12 19:15] LABS: ALB/GLOB Ratio 0.9 RATIO (0.9-2.4); AST(SGOT) 26 U/L (15-37); Alanine Aminotransfer ALT/SGPT 32 U/L (13-56); Albumin, Serum 3.5 g/dL (3.2-5.0); Alkaline Phosphatase 107 U/L (45-117); Anion Gap 7 (5-15); BUN 29 mg/dL (7-18); BUN/Creat Ratio 31.2 RATIO (10-20); CRP < 2.90 mg/L (0.0-3.0); Calcium,Total 8.9 mg/dL (8.5-10.1); Chloride 103 mmol/L (98-107); Creatinine, Serum 0.93 mg/dL (0.55-1.02); EST Glomerular Filtration Rate 62 mL/min (>60); Est Glom Filt Rate - Afr Amer 75 mL/min (>60); Ferritin 39 ng/mL (8-252); Globulin 4.1 g/dL (2.2-4.2); Glucose 91 mg/dL (74-106); Potassium 4.3 mmol/L (3.5-5.1); Protein, Total 7.6 g/dL (6.4-8.2); Sodium Level 139 mmol/L (136-145); Thyroid Stim Hormone (TSH) 1.17 uIU/mL (0.358-3.74)
[2021-04-15 14:05] LABS: ANTINUCLEAR ANTIBODIES DIRECT Positive (Negative)
== END 2021-04-12 23:59 | disposition short-term general hospital (02) ==
LOC: MTLAB 15:46
PROVIDERS: PCP Family Medicine; Referring Provider Family Medicine; Visit Provider Family Medicine
DX: G62.9 Polyneuropathy, unspecified (principal); M50.30 Other cervical disc degeneration, unspecified cervical region
CPT/HCPCS: 36415; 72052; 80053; 82306; 82607; 82728; 82746; 84443; 85027; 85652; 86038; 86140

== ENCOUNTER 2021-04-26 09:34 | Outpatient (CLI) | payer MEDICARE, SELFPAY ==
--- NOTE | 2021-04-26 09:38 | ART_ITS ---
Reason For Study: left leg pain Procedure A bilateral lower extremity continuous wave Doppler with analog waveform analysis and ankle brachial indexes. Left Segmental Pressures Left brachial= 144mmHg. Left posterior tibial artery = 172mmHg. Left dorsalis pedis artery = 170mmHg. The left dorsalis pedis waveforms are triphasic. The left posterior tibial artery waveforms are triphasic. Right Segmental Pressures Right brachial= 145mmHg. Right posterior tibial artery = 176mmHg. Right dorsalis pedis artery = 169mmHg. The right dorsalis pedis waveforms are triphasic. The right posterior tibial artery waveforms are triphasic. Indices The right ankle brachial index by the dorsalis pedis is 1.17. The right ankle brachial index by the posterior tibial artery is 1.21. The left ankle brachial index by the dorsalis pedis is 1.17. The left ankle brachial index by the posterior tibial artery is 1.19. VL/Ankle Brachial Index Interpretation Summary Triphasic Doppler waveforms are noted at ankle level bilaterally. Pulse-volume recordings appear satisfactory at ankle level bilaterally. Resting ankle-brachial indices are nor mal bilaterally. There is no evidence of significant arterial occlusive disease in the lower ext remities bilaterally. Ordering Physician: Jani Alfaro Performed By: Geovanny Law RVT
== END 2021-04-26 23:59 | disposition short-term general hospital (02) ==
PROVIDERS: PCP Family Medicine; Referring Provider Family Medicine; Visit Provider Family Medicine
DX: M79.605 Pain in left leg (principal)
CPT/HCPCS: 93922

== ENCOUNTER 2021-04-27 15:04 | Outpatient (CLI) | payer MEDICARE, SELFPAY ==
[2021-04-29 19:53] LABS: ANTINUCLEAR ANTIBODIES DIRECT Positive (Negative)
== END 2021-04-27 23:59 | disposition short-term general hospital (02) ==
LOC: MTLAB 15:05
PROVIDERS: PCP Family Medicine; Referring Provider Family Medicine; Visit Provider Family Medicine
DX: R76.8 Other specified abnormal immunological findings in serum (principal)
CPT/HCPCS: 36415; 86038

== ENCOUNTER 2021-06-09 16:30 | Outpatient (RCR) | payer MEDICARE, SELFPAY ==
--- NOTE | 2021-04-19 09:12 | HP.PTEVAL_ITS ---
Patient's Visit Information REG DORSEY is a 75 year old F referred to Physical Therapy by Dr. Jani Alfaro MD with a diagnosis of CERVICAL DDD. Date of Evaluation: 04/19/21 Physical Therapist: Mateo Parsons, PT, Cert MDT, OCS - Visit Plan Frequency: 2x /Week Duration: 4 Weeks Plan: PT INTERVETIONS CERVICAL /POSTURAL EX'S ,MANUAL THERAPY AND MODALITIES NEEDED - Subjective This 75 y/o female presents physical therapy cervical pain. Patient has cervical pain several months. Patient developed severe CARPIO . did x-rays DDD. Patient currently has paresthesia in arm. Patient had one episode of ER visit with CARPIO had CATSCAN which was negative. Patient pain aggravating factors sleeping ,turning neck and lifting. Alleviating factors rest. Patient was in prior PT for back. Patient denies dizziness/tinnitus/nausea. Patient symptoms affects sleeping. Patient condition affects QOL and function. SOCIAL: . VOCATION: retired but teachers substitute - Objective POSTURE: mild forward posture ,rounded shoulders head forward. NEURO: denies paresthesia/tingling ,reflexes C5-6-7 /. AROM: BUE WFL. MMT: grossly 4/5 ,shoulders 4-/5. CERVICAL ROM: flexion min loss, extension mod loss, rotatio n/lateral flexion mod loss - Special Tests C/S Radiculapathy - Left Upper limb tension test: Negative C/S Radiculapathy - Right Upper limb tension test: Negative C/S Radiculapathy - Left Spurlings: Negative C/S Radiculapathy - Right Spurlings: Negative C/S Radiculapathy - Left Cervical distraction: Negative C/S Radiculapathy - Right Cervical distraction: Negative C/S Radiculapathy - Left Relief test: Negative C/S Radiculapathy - Right Relief test: Negative Sharp Vernon: Negative Vertebral Artery Test: Negative Alar Ligament Test: Negative - Balance/Special Test Scores Oswestry Neck Score: 17 - Goals Goal 1:: I with HEP for neck pain. Goal Time Frame: 4-6 Weeks Goal 2:: Patient to demonstrate 50% improvement with reduction of neck pain to improve function. Goal Time Frame: 4-6 Weeks Goal 3:: Patient to improve cervical ROM for function of recovery with no symptoms with driving and ADL's Goal Time Frame: 4-6 Weeks Goal 4:: Patient to improve neck owestry score by 5 points to improve QOL and function. Goal Time Frame: 4-6 Weeks - Rehabilitation Potential Physical Therapy Diagnosis: This patient has cervical pain with DDD from x-rays causing pain in left UE with positioning ,and movement tests thus benefit from skilled PT to address these impairments Rehabilitation Potential: Good - Anticipated Interventions Patient/Client Instruction: Educate patient on: Condition, Plan of Care For the Purpose of:: To decrease pain, To increase ROM, To improve muscle performance and motor function, To improve ability to perform ADL's, To increase tolerance to activity/condition/position, To improve ability of physical actions for home/community/work/leisure, To improve health of tissue, To decrease soft tissue restriction, To increase flexibility/ROM Therapeutic Exercise to Include: Strength training, Endurance training, Body mechanics, Postural training, Flexibilty training, Active ROM For the Purpose of:: To decrease pain, To increase ROM, To improve muscle performance and motor function, To improve ability to perform ADL's, To increase tolerance to activity/condition/position, To improve ability of physical actions for home/community/work/leisure, To increase flexibility/ROM, To prevent re- injury Manual Therapy Techniques to Include: Mobilization Comment: CERVICAL TRACTION For the Purpose of:: To decrease pain, To increase ROM, To improve nutrient delivery to tissue, To increase oxygenation perfusion, To improve health of tissue, To decrease soft tissue restriction Thank you for the opportunity to evaluate your patient. For Medicare and Medicare HMO plans, please review the plan of care and approve it. It will need to be FAXED BACK to us at [phone] for Medicare purposes. For Medicare only, by signing this I certify the plan of care. Please let me know if there are questions or concerns regarding this plan of care. Physician Signature: Date:
--- NOTE | 2021-10-05 13:42 | HP.PTDCSUM ---
It has been my pleasure to treat REG DORSEY referred by Dr. Jani Alfaro MD, with the diagnosis of CERVICAL DDD for a total of 9 visit(s). Discharge Date: Please see the following information for a summary of their discharge status. Subjective: DOING GOOD % Improvement: 90 Objective/Function: CERVICAL ROM:WFL. MMT: 4/5 BUE Goal 1:: I with HEP for neck pain. Goal Progress: Goal Met Goal 2:: Patient to demonstrate 50% improvement with reduction of neck pain to improve function. Goal Progress: Goal Met Goal 3:: Patient to improve cervical ROM for function of recovery with no symptoms with driving and ADL's Goal Progress: Goal Met Goal 4:: Patient to improve neck owestry score by 5 points to improve QOL and function. Goal Progress: Goal Met Plan: D/C TO HOME If there are questions or concerns regarding this patient's physical therapy, please feel free to call me at [phone]. Thank you for the referral of this patient. Sincerely, Mateo Parsons, PT, Cert MDT, OCS Balance/Gait/Functional tests - Balance/Special Test Scores Oswestry Neck Score: 0
== END 2021-06-09 19:00 | disposition home or self-care (01) ==
LOC: PT 16:30
PROVIDERS: PCP Family Medicine; Referring Provider Family Medicine; Visit Provider Family Medicine
DX: M50.30 Other cervical disc degeneration, unspecified cervical region (principal)
CPT/HCPCS: 97110; 97162

== ENCOUNTER → 2021-07-29 | Outpatient (CLI) | payer MEDICARE, SELFPAY ==
--- NOTE | 2021-07-29 10:13 | RAD_ITS ---
INDICATION: PAIN EXAMINATION/TECHNIQUE: X-RAY - XR Pelvis 1 or 2 Views COMPARISON: 04/03/2018. FINDINGS: PELVIC BONES: No displaced fracture, destructive or sclerotic lesions. Note that overlapping bowel shadows may however obscure fine detail. Sacroiliac joints are unremarkable. No widening of the pubic symphysis. HIPS: The articular structures are unremarkable. No displaced fracture seen in this frontal view. Unremarkable alignment of the right hip prosthesis. SOFT TISSUES: No soft tissue swelling or gas. Stool visualized in the large bowel. Pelvic calcifications consistent with phleboliths. RAD/Pelvis 1 or 2 Views IMPRESSION: Degenerative changes. No evidence of displaced pelvic or hip fracture. Electronically Signed: Hima Suarez MD at 13:25 EDT ,
[2021-07-29 11:16] LABS: EXAGEN MAILED SPECIMEN
[2021-07-29 12:39] LABS: Protein, Urine (Random) 7.7 mg/dL (<11.9); Protein:Creat Ratio 108 mg/g CRE (0-200)
[2021-07-29 12:42] LABS: Color, Urine Yellow (Yellow); Glucose, Dipstick Normal (Normal); Ketone-Dipstick Negative (Negative); Leukocyte Esterase-Dipstick 25 /ul (Negative); Nitrite-Dipstick Negative (Negative); Occult Blood-Urine Negative /ul (Negative); Protein-Dipstick Negative (Negative); Specific Gravity, Urine 1.015 (1.002-1.030); Urine Bilirubin Dipstick Negative (Negative); Urine Clarity Sl. Cloudy (Clear); Urine Urobilinogen Normal (Normal)
[2021-07-29 12:48] LABS: International Normalized Ratio 1.1; Prothrombin Time (Protime)PT. 13.4 SECONDS (11.7-14.9)
[2021-07-29 12:49] LABS: Partial Thromboplast Time 28.9 Seconds (24.1-36.2)
[2021-07-29 12:58] LABS: ALB/GLOB Ratio 1.1 RATIO (0.9-2.4); AST(SGOT) 25 U/L (15-37); Alanine Aminotransfer ALT/SGPT 26 U/L (13-56); Albumin, Serum 3.9 g/dL (3.2-5.0); Alkaline Phosphatase 101 U/L (45-117); Anion Gap 6 (5-15); BUN 27 mg/dL (7-18); BUN/Creat Ratio 31.7 RATIO (10-20); Calcium,Total 8.5 mg/dL (8.5-10.1); Chloride 106 mmol/L (98-107); Creatinine, Serum 0.85 mg/dL (0.55-1.02); EST Glomerular Filtration Rate 68 mL/min (>60); Est Glom Filt Rate - Afr Amer 83 mL/min (>60); Globulin 3.4 g/dL (2.2-4.2); Glucose 97 mg/dL (74-106); Potassium 3.9 mmol/L (3.5-5.1); Protein, Total 7.3 g/dL (6.4-8.2); Sodium Level 140 mmol/L (136-145)
[2021-07-29 13:29] LABS: Hepatitis B Surface Antibody Non-Reactive; Hepatitis B Surface Antigen Non-Reactive (Nonreactive); Hepatitis C Antibody Non-Reactive (Nonreactive)
[2021-07-29 15:13] LABS: Absolute Lymphocyte Count 1.16 X10^3/uL (0.83-4.51); Absolute Neutrophil Count 5.3 X10^3/uL (2.0-7.7); Basophil# 0.03 X10^3/uL; Basophil% 0.4 % (0-1); Eosinophil# 0.27 X10^3/uL; Eosinophils% 3.7 % (0-5); Hematocrit 35.3 % (37-47); Hemoglobin 11.1 g/dL (12.0-15.0); Lymphocyte # 1.16 X10^3/ul (0.83-4.51); Lymphocyte % 15.9 % (19-41); Mean Corp Hgb Conc 31.4 g/dL (32-36); Mean Corpuscular Volume 92.2 fL (81-99); Mean Platelet Vol. 10.6 fl (6.2-12.0); Monocyte% 6.9 % (0-10); NRBC Flagged by Analyzer 0 % (0-5); Neutrophil # 5.31 X10^3/uL (2.7-7.7); Neutrophil % 72.8 % (47-70); Platelet Count 320 K/mm3 (150-450); RBC Distribution Width CV 12.9 % (11.6-14.6); RBC Distribution Width SD 43.2 fl (35.1-43.9); Red Blood Count 3.83 M/mm3 (4.2-5.4); White Blood Count 7.3 K/mm3 (4.4-11.0)
[2021-08-01 14:08] LABS: Dilute Prothrombin Time (dPT) 37.2 sec (0.0-47.6); Dilute Russell Viper Venom 34.7 sec (0.0-47.0); Thrombin Time 16.4 sec (0.0-23.0); dPT Confirm Ratio 1.14 Ratio (0.00-1.34)
[2021-08-01 16:58] LABS: Interpretation Comment: (.)
[2021-08-05 14:09] LABS: Hexagonal Phase Phospholipid 2 sec (0-11); Thrombin Time 16.8 sec (0.0-23.0)
[2021-08-05 18:09] LABS: HLA B27 Negative (.)
== END | disposition home or self-care (01) ==
LOC: MTLAB 10:11
PROVIDERS: PCP Family Medicine; Referring Provider Internal Medicine Rheumatology; Visit Provider Internal Medicine Rheumatology
DX: M06.4 Inflammatory polyarthropathy (principal); R76.8 Other specified abnormal immunological findings in serum; M17.0 Bilateral primary osteoarthritis of knee; M47.897 Other spondylosis, lumbosacral region; I10 Essential (primary) hypertension; J45.909 Unspecified asthma, uncomplicated; M21.41 Flat foot [pes planus] (acquired), right foot; F41.9 Anxiety disorder, unspecified; Z85.3 Personal history of malignant neoplasm of breast; Z86.711 Personal history of pulmonary embolism
CPT/HCPCS: 36415; 72170; 80053; 81002; 81374; 82570; 84156; 85025; 85598; 85610; 85670; 85730; 86706; 86803; 87340

== ENCOUNTER → 2021-08-17 | Outpatient (CLI) | payer MEDICARE, SELFPAY | END | disposition home or self-care (01) | LOC: LABSPEC 12:16 | PROVIDERS: PCP Family Medicine; Referring Provider Family Medicine; Visit Provider Family Medicine | DX: R10.9 Unspecified abdominal pain (principal) | CPT/HCPCS: 87086 ==

== ENCOUNTER → 2021-08-17 | Outpatient (CLI) | payer MEDICARE, SELFPAY ==
--- NOTE | 2021-08-17 09:56 | RAD_ITS ---
INDICATION: BRONCHITIS EXAMINATION/TECHNIQUE: X-RAY - XR Chest 2 Views COMPARISON: 08/21/2018 FINDINGS: LIFE-SUPPORT AND LINES: 1. None HEART AND VESSELS: The cardiac silhouette, pulmonary vasculature have normal appearance. No evidence of congestive failure. LUNGS AND PLEURAL SPACES: Lungs are clear. No focal infiltrate, consolidation or effusions. No evidence of pneumothorax. No pulmonary mass is noted. MEDIASTINUM AND HILAR REGIONS: No masses adenopathy noted. No areas of calcification. Visualized upper airway is normal in position. BONY ELEMENTS: No acute bony changes noted. RAD/Chest PA and Lateral IMPRESSION: 1. No evidence of acute cardiopulmonary process Electronically Signed: Volodymyr Slaughter MD at 17:23 EDT ,
== END | disposition home or self-care (01) ==
PROVIDERS: PCP Family Medicine; Referring Provider Family Medicine; Visit Provider Family Medicine
DX: J40 Bronchitis, not specified as acute or chronic (principal); R10.9 Unspecified abdominal pain
CPT/HCPCS: 71046; 87086; 87088

== ENCOUNTER → 2021-08-25 | Outpatient (CLI) | payer MEDICARE, SELFPAY ==
--- NOTE | 2021-08-25 15:13 | MRI_ITS ---
STUDY: MR Spine Lumbar W/O Contrast 08/25/2021 4:30 PM REASON FOR EXAM: Female, 76 years old. Back pain DEGENERATIVE DISC DISEASE TECHNIQUE: MR Spine Lumbar W/O Contrast Standardized fat and water weighted pulse sequences were obtained. COMPARISON: Plain filmJun 2020 9:32am FINDINGS: T12-L1: Normal endplates. Normal disc height, hydration and morphology. Normal bilateral facet joints. Normal central canal and bilateral lateral recesses. Normal bilateral intervertebral neural foramina. Normal lumbar lordosis. There is no substantial scoliosis. Normal conus medullaris that terminates at the L1. L1-2: Normal endplates. Normal disc height and morphology. Normal central canal and intervertebral neuroforamina. There is bilateral ligamentum flavum thickening. L2-3: Loss of intervertebral disc height. There is endplate spondylosis of the vertebral body. Narrowing the lateral recess. Posterior disc bulge. Moderate spinal stenosis. No significant neural foraminal stenosis. There is bilateral facet arthropathy. There is bilateral ligamentum flavum thickening. L3-4: Loss of intervertebral disc height. There is endplate spondylosis of the vertebral body. Narrowing the lateral recess. Posterior disc bulge. Moderate spinal stenosis. No significant neural foraminal stenosis. There is bilateral facet arthropathy. There is bilateral ligamentum flavum thickening. L4-5: Loss of intervertebral disc height. There is endplate spondylosis of the vertebral body. There is bilateral facet arthropathy. Bilateral neural foraminal stenosis. Compression of exiting nerve roots. Grade 1 anterolisthesis of L4 on L5. The distance measures 4.2 mm. Combined findings are causing severe spinal stenosis. Severe neural foraminal stenosis. Unroofing of the disc material. Severe lateral recess stenosis. L5-S1: Loss of intervertebral disc height. There is endplate spondylosis of the vertebral body. There is bilateral facet arthropathy. Normal central canal and intervertebral neuroforamina. There is bilateral ligamentum flavum thickening. Normal visualized paraspinous soft tissue structures. MRI/Spine Lumbar (Routine) IMPRESSION: Multilevel degenerative changes, as described above. L4-5: Bilateral neural foraminal stenosis. Compression of exiting nerve roots. Grade 1 anterolisthesis of L4 on L5. The distance measures 4.2 mm. Combined findings are causing severe spinal stenosis. Severe neural foraminal stenosis. Severe lateral recess stenosis. Electronically Signed: Nagi Darden MD at 19:36 EDT ,
== END | disposition home or self-care (01) ==
PROVIDERS: PCP Family Medicine; Visit Provider Family Medicine
DX: M51.36 Other intervertebral disc degeneration, lumbar region (principal)
CPT/HCPCS: 72148

== ENCOUNTER → 2021-12-29 | Outpatient (CLI) | payer MEDICARE, SELFPAY ==
[2021-12-29 18:01] LABS: Hematocrit 36.1 % (37-47); Hemoglobin 11.3 g/dL (12.0-15.0); Mean Corp Hgb Conc 31.3 g/dL (32-36); Mean Corpuscular Hgb 29.4 pg (27.0-32.0); Mean Corpuscular Volume 93.8 fL (81-99); Mean Platelet Vol. 10.3 fl (6.2-12.0); Platelet Count 365 K/mm3 (150-450); RBC Distribution Width CV 12.8 % (11.6-14.6); RBC Distribution Width SD 43.8 fl (35.1-43.9); Red Blood Count 3.85 M/mm3 (4.2-5.4); White Blood Count 6.6 K/mm3 (4.4-11.0)
[2021-12-29 18:17] LABS: Erythrocyte Sedimentation Rate 14 mm/hr (0-30)
[2021-12-29 18:52] LABS: Anion Gap 7 (5-15); BUN 26 mg/dL (7-18); Calcium,Total 9.5 mg/dL (8.5-10.1); Chloride 103 mmol/L (98-107); Creatinine, Serum 0.93 mg/dL (0.55-1.02); EST Glomerular Filtration Rate 62 mL/min (>60); Est Glom Filt Rate - Afr Amer 75 mL/min (>60); Glucose 89 mg/dL (74-106); Potassium 4.1 mmol/L (3.5-5.1); Sodium Level 139 mmol/L (136-145); Thyroid Stim Hormone (TSH) 1.03 uIU/mL (0.358-3.74)
== END | disposition home or self-care (01) ==
LOC: MFPLAB 16:14
PROVIDERS: PCP Family Medicine; Referring Provider Family Medicine; Visit Provider Family Medicine
DX: R60.0 Localized edema (principal); R76.8 Other specified abnormal immunological findings in serum
CPT/HCPCS: 36415; 80048; 84443; 85027; 85652

== ENCOUNTER → 2022-02-09 | Outpatient (CLI) | payer MEDICARE, SELFPAY | END | disposition home or self-care (01) | LOC: LABSPEC 14:07 | PROVIDERS: PCP Family Medicine; Visit Provider Family Medicine | DX: J06.9 Acute upper respiratory infection, unspecified (principal) | CPT/HCPCS: 87807 ==

== ENCOUNTER → 2022-02-13 | Outpatient (CLI) | payer MEDICARE, SELFPAY | END | disposition home or self-care (01) | LOC: LABSPEC 13:43 | PROVIDERS: PCP Family Medicine; Referring Provider Internal Medicine Critical Care Medicine; Visit Provider Internal Medicine Critical Care Medicine | DX: J45.40 Moderate persistent asthma, uncomplicated (principal) | CPT/HCPCS: 87070; 87077; 87205 ==

== ENCOUNTER 2022-03-28 00:28 | Emergency (ER) | payer MEDICARE, SELFPAY ==
[2022-03-28 00:31] VITALS: BP 178/79; PULSE 95; RESP 20; TEMP 36.9; O2SAT 98; BMI 27.2
--- NOTE | 2022-03-28 00:37 | CT_ITS ---
STUDY: CT BRAIN WITHOUT CONTRAST REASON FOR EXAM: Female, 76 years old. head trauma RADIATION DOSAGE (If Supplied By Facility): CTDIvol = ( 44.99 ) mGy, DLP = ( 812.98 ) mGycm TECHNIQUE: Transaxial CT imaging of the brain was performed without administration of intravenous contrast material. Individualized dose optimization techniques were used for this CT. COMPARISON: No relevant priors. FINDINGS: Left frontal scalp contusion. Normal calvarium. Normal size ventricles and extra-axial spaces for the patient''s age. There are areas of decreased attenuation within the white matter tracts of the supratentorial brain, consistent with microvascular disease changes. Normal basal ganglia and thalami. Normal brainstem. Normal cerebellum. There is no intracranial hemorrhage. There are no findings of an acute ischemic infarction. Normal visualized paranasal sinuses. CT/Brain/Head without Contrast IMPRESSION: Chronic involutional changes of the brain. Electronically Signed: Sterling Garcia MD at 1:16 EST ,
--- NOTE | 2022-03-28 00:37 | EX.ED.GENINJ ---
HPI History of Present Illness Chief Complaint: Head Injury Narrative Narrative: 76-year-old female presenting with head injury. She states she tripped over the dog pillow and hit her head on the TV stand. She did not get knocked out. No dizziness, lightheadedness, nausea, vomiting, blurred vision. She admits to a very mild headache. She denies neck pain. She does state that she struck her knee on the way down but has been ambulatory on this and states that it does not hurt severely. Patient otherwise well prior to tripping. She does have some swelling of the left forehead she states that the slight abrasion to the left side of forehead. She states she is not on any blood thinners. [facility] Medical History Asthma without status asthmaticus Breast cancer Dyspepsia History of elevated cholesterol History of hypertension Obesity Home Medications lisinopril 5 mg tablet 10 mg PO DAILY 08/05/17 [History Last Taken Unknown] multivitamin 1 cap PO DAILY 06/13/19 [History Last Taken Unknown] atorvastatin 20 mg tablet 20 mg PO DAILY 03/23/20 [History Last Taken Unknown] albuterol sulfate 90 mcg/actuation aerosol inhaler 1 - 2 puff inhalation PRN PRN Bronchospasm #8.5 grams 10/05/21 [Rx Last Taken Unknown] mometasone-formoterol HFA 100 mcg-5 mcg/actuation aerosol inhaler (Dulera) 2 puff inhalation Q12H #13 grams 10/05/21 [Rx Last Taken Unknown] calcium 600 mg capsule 60 mg PO DAILY 03/28/22 [History Last Taken Unknown] Allergy/AdvReac Type Severity Reaction Status Date / Time animal dander Allergy Unknown Verified 03/28/22 00:29 house dust Allergy NEEDS Verified 03/28/22 00:29 FOLLOW-UP mold Allergy NEEDS Verified 03/28/22 00:29 FOLLOW-UP venom-honey bee Allergy Swelling Verified 03/28/22 00:29 Family History Grandmother Cancer Pancreatic Father CHF (congestive heart failure) Grandfather CVA (cerebral vascular accident) Surgical History H/O total knee replacement Hip replacement planned History of lumpectomy History of suburethral sling procedure History of toe surgery Social History Smoking Status: Never smoker alcohol intake: current details: Occasionally wine. ROS ROS ED Constitutional Constitutional ED: Denies chills, fever(s) or sweats Eyes Eyes: Denies blurry vision or change in vision ENT ENT ED: Denies ear pain or sore throat Cardiovascular Cardiovascular: Denies chest pain, palpitations or racing heartbeat Respiratory/Chest Respiratory/Chest: Denies cough, dyspnea or sputum Gastrointestinal Gastrointestinal: Denies abdominal pain, constipation, diarrhea, nausea or vomiting Genitourinary Genitourinary ED: Denies dysuria, hematuria or urinary frequency Musculoskeletal Musculoskeletal: Denies arthralgias, myalgias or neck pain Integumentary Reports Abrasions; Denies abscess or rash Neurologic Neurologic: Reports headache(s); Denies paresthesias or weakness Psychiatric Psychiatric: Denies anxiety, depression, suicidal ideation or suicidal thoughts Endocrine Endocrinology: Denies polydipsia or polyuria EXAM Physical Exam Const Vital Signs: 03/28/22 00:31 03/28/22 00:33 Temperature 98.5 F Temperature Source Oral Pulse Rate 95 Respiratory Rate 20 H Respiratory Effort Normal Respiratory Depth Normal Respiratory Pattern Normal Blood Pressure 178/79 H Blood Pressure Mean 112 Pulse Ox 98 Oxygen Delivery Method Room Air Room Air Positive well nourished General Appearance ED: NAD [facility] [place] Narrative: Cephalohematoma to the left forehead. There is a superficial abrasion/laceration overlying this region maximally 2 to 3 cm. No active bleeding. No skull deformity. No hemotympanum. No facial bone tenderness otherwise. No jaw occlusion. Eyes PERRL and EOMs intact bilaterally Resp normal respiratory effort Cardio regular rhythm Rate: regular rate GI normal to inspection, nondistended, normoactive bowel sounds Extremity normal to inspection Neuro oriented x3, CN's II-XII intact bilaterally, moves all extremities, no focal motor deficits, no sensory deficits noted and gait normal Sensorium / Orientation: alert Motor Exam: strength 5/5 throughout Psych mental status grossly normal Skin Skin Narrative: As documented above MDM MDM MDM Narrative Medical decision making narrative: Patient presenting with head injury. She does not have any focal neurologic deficits or lateralizing signs or symptoms. She has a cephalhematoma on the left side of forehead with a superficial abrasion/laceration. This does not need sutured. Patient states she is concerned to how hard she hit her head. I will obtain a CT of the brain. She declines any analgesia. CT of the brain which is negative. She stable for discharge home. A Band-Aid was placed over her abrasion. Impression: 1. Cephalohematoma 2. Superficial abrasion to scalp 3. Closed head injury 4. Mechanical fall Lab Data Attestation: I reviewed the patient's lab results. Radiography Diagnostic Testing: Clinical Impression(s) from Imaging Studies Brain CT 03/28/22 00:37 IMPRESSION: Chronic involutional changes of the brain. Electronically Signed: Sterling Garcia MD at 1:16 EST , Discharge Plan Triage Chief Complaint: Head Injury ED Provider: Rashi Ruiz Dx/Rx/DC Orders Instructions: ED Facial Contusion, ED Head Injury (Adult) Prescriptions: No Action multivitamin capsule 1 cap PO DAILY atorvastatin 20 mg tablet 20 mg PO DAILY Dulera 100-5 mcg/actuation HFA aerosol inhaler 2 puff INHALATION Q12H Qty: 13 5RF albuterol sulfate 90 mcg/actuation HFA aerosol inhaler 1 - 2 puff inhalation PRN PRN (Reason: Bronchospasm) Qty: 8.5 1RF lisinopril 5 MG tablet 10 mg PO DAILY calcium 600 mg Capsule 60 mg PO DAILY Primary Care Provider: Jani Alfaro Referrals: Jani Alfaro MD [Primary Care Provider] - Disposition Disposition: Home, Self Care
[2022-03-28 01:33] VITALS: RESP 18
--- NOTE | 2022-03-28 01:34 | ED.RN ---
BANDAID APPLIED TO FOREHEAD LACERATION PER PT AND DR. MULLIGAN REQUEST.
== END 2022-03-28 01:35 | disposition home or self-care (01) ==
PROVIDERS: Emergency Provider Student in an Organized Health Care Education/Training Program; PCP Family Medicine; Visit Provider Student in an Organized Health Care Education/Training Program
DX: S00.01XA Abrasion of scalp, initial encounter (principal); I10 Essential (primary) hypertension; E78.00 Pure hypercholesterolemia, unspecified; Z79.899 Other long term (current) drug therapy; W19.XXXA Unspecified fall, initial encounter
CPT/HCPCS: 70450; 99282

== ENCOUNTER → 2022-10-02 | Outpatient (CLI) | payer MEDICARE, SELFPAY | END | disposition home or self-care (01) | LOC: LABSPEC 16:50 | PROVIDERS: PCP Family Medicine; Visit Provider Family Medicine | DX: R39.15 Urgency of urination (principal) | CPT/HCPCS: 87086; 87088 ==

== ENCOUNTER → 2022-10-12 | Outpatient (CLI) | payer MEDICARE, SELFPAY ==
[2022-10-12 13:14] LABS: Cholesterol 174 mg/dL (200); High Density Lipoprotein 55 mg/dL; Triglycerides 104 mg/dL; Very Low Density Lipoprotein 21 mg/dL (5-40)
== END | disposition home or self-care (01) ==
LOC: MTLAB 09:50
PROVIDERS: PCP Family Medicine; Referring Provider Family Medicine; Visit Provider Family Medicine
DX: E78.5 Hyperlipidemia, unspecified (principal)
CPT/HCPCS: 80061

== ENCOUNTER → 2022-10-31 | Outpatient (CLI) | payer MEDICARE, SELFPAY ==
--- NOTE | 2022-10-31 11:28 | RAD_ITS ---
EXAM: XR RIGHT WRIST COMPLETE, 3 OR MORE VIEWS CLINICAL INDICATION: loss motion, pain TECHNIQUE: Frontal, lateral and oblique views of the right wrist. COMPARISON: No relevant prior studies available. FINDINGS: BONES/JOINTS: Mild degenerative changes of the radiocarpal joint. Widening of the scapholunate interval. No acute fracture. No sclerotic or destructive changes observed. SOFT TISSUES: Unremarkable. No soft tissue swelling or gas. No radiopaque foreign body. RAD/Wrist min 3 Views IMPRESSION: Mild degenerative changes of the radiocarpal joint. 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 Electronically Signed: Nagi Porras MD at 2:27 EDT ,
[2022-10-31 15:32] LABS: Absolute Lymphocyte Count 1.08 X10^3/uL (0.83-4.51); Absolute Neutrophil Count 5.9 X10^3/uL (2.0-7.7); Basophil# 0.04 X10^3/uL; Basophil% 0.5 % (0-1); Eosinophil# 0.29 X10^3/uL; Eosinophils% 3.6 % (0-5); Hematocrit 35.7 % (37-47); Hemoglobin 11.4 g/dL (12.0-15.0); Lymphocyte # 1.08 X10^3/ul (0.83-4.51); Lymphocyte % 13.5 % (19-41); Mean Corp Hgb Conc 31.9 g/dL (32-36); Mean Corpuscular Hgb 29.2 pg (27.0-32.0); Mean Corpuscular Volume 91.5 fL (81-99); Monocyte# 0.69 X10^3/uL; Monocyte% 8.6 % (0-10); NRBC Flagged by Analyzer 0 % (0-5); Neutrophil # 5.89 X10^3/uL (2.7-7.7); Neutrophil % 73.6 % (47-70); Platelet Count 311 K/mm3 (150-450); RBC Distribution Width CV 12.8 % (11.6-14.6); RBC Distribution Width SD 42.4 fl (35.1-43.9)
[2022-10-31 16:05] LABS: Anion Gap 3 (5-15); BUN 25 mg/dL (7-18); BUN/Creat Ratio 24.5 RATIO (10-20); Calcium,Total 9.5 mg/dL (8.5-10.1); Chloride 104 mmol/L (98-107); Creatinine, Serum 1.02 mg/dL (0.55-1.02); EST Glomerular Filtration Rate 56 mL/min (>60); Est Glom Filt Rate - Afr Amer 67 mL/min (>60); Glucose 98 mg/dL (74-106); Sodium Level 138 mmol/L (136-145); Thyroid Stim Hormone (TSH) 1.07 uIU/mL (0.358-3.74)
== END | disposition home or self-care (01) ==
PROVIDERS: PCP Family Medicine; Referring Provider Family Medicine; Visit Provider Family Medicine
DX: R60.0 Localized edema (principal); R35.0 Frequency of micturition; M25.531 Pain in right wrist
CPT/HCPCS: 36415; 73110; 80048; 84443; 85025; 87086; 87088

== ENCOUNTER 2022-12-28 14:51 | Outpatient (CLI) | payer MEDICARE, SELFPAY ==
[2022-12-28 18:29] LABS: Absolute Lymphocyte Count 1.72 X10^3/uL (0.83-4.51); Basophil# 0.05 X10^3/uL; Basophil% 0.7 % (0-1); Eosinophil# 0.45 X10^3/uL; Eosinophils% 6.6 % (0-5); Hemoglobin 11.2 g/dL (12.0-15.0); Lymphocyte # 1.72 X10^3/ul (0.83-4.51); Lymphocyte % 25.1 % (19-41); Mean Corpuscular Hgb 29.7 pg (27.0-32.0); Mean Corpuscular Volume 92.8 fL (81-99); Mean Platelet Vol. 10.5 fl (6.2-12.0); Monocyte# 0.62 X10^3/uL; NRBC Flagged by Analyzer 0 % (0-5); Neutrophil % 58.3 % (47-70); Platelet Count 358 K/mm3 (150-450); RBC Distribution Width CV 12.7 % (11.6-14.6); RBC Distribution Width SD 43.4 fl (35.1-43.9); Red Blood Count 3.77 M/mm3 (4.2-5.4); White Blood Count 6.9 K/mm3 (4.4-11.0)
[2022-12-28 18:30] LABS: AST(SGOT) 20 U/L (15-37); Alanine Aminotransfer ALT/SGPT 23 U/L (13-56); Albumin, Serum 3.7 g/dL (3.2-5.0); Alkaline Phosphatase 101 U/L (45-117); Anion Gap 5 (5-15); BUN 30 mg/dL (7-18); BUN/Creat Ratio 31.9 RATIO (10-20); CRP < 2.90 mg/L (0.0-3.0); Calcium,Total 9.8 mg/dL (8.5-10.1); Chloride 105 mmol/L (98-107); Creatinine, Serum 0.94 mg/dL (0.55-1.02); EST Glomerular Filtration Rate 61 mL/min (>60); Est Glom Filt Rate - Afr Amer 74 mL/min (>60); Globulin 3.8 g/dL (2.2-4.2); Glucose 78 mg/dL (74-106); Iron 76 ug/dL (50-170); Potassium 4.1 mmol/L (3.5-5.1); Protein, Total 7.5 g/dL (6.4-8.2); Sodium Level 139 mmol/L (136-145); Thyroid Stim Hormone (TSH) 1.41 uIU/mL (0.358-3.74)
[2022-12-28 18:44] LABS: Vitamin B12 400 pg/mL (211-911); Vitamin D,25 Hydroxy 38.5 ng/mL
[2022-12-28 18:46] LABS: Erythrocyte Sedimentation Rate 12 mm/hr (0-30)
[2022-12-30 14:10] LABS: ANTINUCLEAR ANTIBODIES DIRECT Positive (Negative)
== END 2022-12-28 23:59 | disposition home or self-care (01) ==
LOC: MTLAB 14:52
PROVIDERS: PCP Family Medicine; Visit Provider Family Medicine
DX: R20.2 Paresthesia of skin (principal); E55.9 Vitamin D deficiency, unspecified; M25.531 Pain in right wrist
CPT/HCPCS: 36415; 80053; 82306; 82607; 83540; 83735; 84443; 85025; 85652; 86038; 86140

== ENCOUNTER → 2023-04-06 | Outpatient (CLI) | payer MEDICARE, SELFPAY ==
--- NOTE | 2023-04-06 11:50 | RAD_ITS ---
INDICATION: shortness of breath EXAMINATION/TECHNIQUE: X-RAY - XR Chest 2 Views COMPARISON: Prior study dated: 08/17/2021. FINDINGS: LINES/DEVICES: None. LUNGS: No consolidation, edema or effusion. No pneumothorax. MEDIASTINUM AND CARDIOVASCULAR STRUCTURES: Cardiac silhouette not enlarged. Central airways and mediastinal contour are unremarkable. BONES AND SOFT TISSUES: No demonstrated acute osseous changes. RAD/Chest PA and Lateral IMPRESSION: No radiographic evidence of acute cardiopulmonary disease. Electronically Signed: Severiano Alcaraz MD at 13:04 EST ,
--- OUTSIDE RECORDS SUMMARY | 2023-04-06 12:00 | XMS RPT_ITS | CCD ---
Author Name Unknown Address [address] [place] [address] Organization [facility] Care Team Providers Care [employer] Teacher Name Role Phone BEATAMAYR MEDEL Unavailable Unavailable ARACELI BERNAL (THELMA) Referring UnavailRENATE Espana Admitting Unavailable RENATE PITT Attending Unavailable KIT NGUYEN Consulting Unavailable Isra Alfaro MD Primary Care Provider Blank Fleming RN Unavailable Unavailable Tim DOHERTY MD, William E Unavailable Isra Alfaro Unavailable Mariama Goldman Unavailable Unavailable Tim DOHERTY MD, William E Unavailable Isra Alfaro MD Primary Care Provider Isra Alfaro MD Primary Care Provider Isra Alfaro MD Primary Care Provider Isra Alfaro MD Primary Care Provider Blank Fleming RN Unavailable Unavailable Tim DOHERTY MD, William E Unavailable Isra Alfaro MD Primary Care Provider Blank Fleming RN Unavailable Unavailable Tim DOHERTY MD, William E Unavailable ISRA ALFARO Primary Care UnavailJANAE Jones Referring Unavailable RENÉE GOMEZ Attending Unavailable ISRA ALFARO Primary Care UnavailSUGAR Davis Attending Unavailable SUGAR EVERETT Referring Unavailable ISRA ALFARO Primary Care UnavailSUGAR Davis Attending Unavailable SUGAR EVERETT Referring Unavailable Isra Alfaro MD Primary Care Provider CAMPBELL VILLAR Referring Unavailable ISRA ALFARO Primary [facility] e MILDRED CERVANTES II Attending ISRA Orr Primary [facility] Un[facility]tri[facility] health CATHI Zabala Referring Unavailable ISRA ALFARO Primary [facility] ISRA Nguyen Primary [facility] ISRA Nguyen Primary [facility] MILDRED Trammell II Attending [facility] ISRA Nguyen [facility] ISRA Nguyen Primary [facility] CAMPBELL Easton Attending Unavailable ISRA ALFARO [facility] Unavailtrios health e Allergies Allergy Classification Reported Allergen(s) Allergy Type Date of Onset Reaction(s) Facility (15 sources) Seasonal allergy; Translations: [SEASONAL ALLERGIES] Propensity to adverse reactions (disorder) [address] [facility] Other [place] [facility] (1 source) OTHER OMEGA-3S; Translations: [OTHER OMEGA-3S] Propensity to adverse reactions to drug (disorder) [address] [facility] Other [place] [facility] (6 sources) *Seasonal Propensity to adverse reactions to substance 1 [facility] (6 sources) Other Propensity to adverse reactions 9 Shortness of Breath [facility] (11 sources) house dust allergenic extract; Translations: [HOUSE DUST] Drug Allergy 2 Other: See Comments [facility] (11 sources) Mold Extract; Translations: [MOLD] Drug Allergy 2 Other: See Comments [facility] (13 sources) Venom-Honey Bee; Translations: [VENOM-HONEY BEE] Drug Allergy [address] [facility] Medications Current Medications Medication Drug Class(es) Dates Sig (Normalized) Sig (Original) acetaminophen 500 mg oral tablet (5 sources) Start: 11-26-2020 End: 12-10-2020 take 2 tablets by mouth every eight hours acetaminophen 500 MG tablet Take 2 tablets by mouth every 8 hours for 14 days. (first line pain) 84 tablet 0 11/26/2020 Active aspirin 81 mg delayed release oral tablet (6 sources) Platelet Aggregation Inhibitor, Nonsteroidal Anti-inflammatory Drug Start: 11-26-2020 End: 12-10-2020 take 1 tablet by mouth every twelve hours aspirin EC [address] Take 1 tablet by mouth every 12 hours for 14 days. (blood clot prevention) 28 tablet 0 11/26/2020 Active Completed/Discontinued Medications Medication Drug Class(es) Dates Sig (Normalized) Sig (Original) [id number] 200 actuat albuterol 0.09 mg/actuat metered dose inhaler (19 sources) beta2-Adrenergic Agonist albuterol HFA (PROVENTIL HFA, VENTOLIN HFA) 90 mcg/actuation inhaler Inhale 2 Puffs as instructed as needed for Wheezing/Shortness of Breath. 0 Active Problems Active Problems Problem Classification Problem Date Documented Da te Episodic/Chronic Acquired foot deformities (7 sources) Hallux valgus interphalangeus; Translations: [Hallux valgus (acquired), right foot] Onset: 10-18-2020 Chronic Allergic reactions (1 source) Solar degeneration; Translations: [Other skin changes due to chronic exposure to nonionizing radiation] Episodic Asthma (12 sources) Asthma; Translations: [Unspecified asthma, uncomplicated] 08-18-2016 Chronic Blindness and vision defects (2 sources) Bilateral myopia of eyes; Translations: [Myopia, bilateral] Episodic Cancer of breast (18 sources) Malignant tumor of breast ; Translations: [Malignant neoplasm of unspecified site of unspecified female breast] 01-14-2009 Chronic Cancer of breast (12 sources) History of malignant neoplasm of breast; Translations: [Personal history of malignant neoplasm of breast] Onset: 06-17-2015 06-17-2015 Episodic Cataract (20 sources) Bilateral senile combined form cataracts of eyes; Translations: [Combined forms of age-related cataract, bilateral] Onset: 04-22-2014 05-23-2019 Chronic Disorders of lipid metabolism (12 sources) Hyperlipidemia; Translations: [Hyperlipidemia, unspecified] Onset: 08-18-2016 08-18-2016 Chronic Essential hypertension (12 sources) Essential hypertension; Translations: [Essential (primary) hypertension] Onset: 06-06-2018 06-06-2018 Chronic Neoplasms of unspecified nature or uncertain behavior (1 source) Neoplasm of uncertain behavior of skin; Translations: [Neoplasm of uncertain behavior of skin] Episodic Osteoarthritis (20 sources) Unilateral primary osteoarthritis, right hip; Translations: [Unilateral primary osteoarthritis, right knee] Onset: 09-02-2015 Chronic Other aftercare (5 sources) Antibiotic prophylaxis indicated; Translations: [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] Episodic Other connective tissue disease (12 sources) History of total knee arthroplasty; Translations: [Presence of unspecified artificial knee joint] Onset: 08-18-2016 08-18-2016 Chronic Other eye disorders (12 sources) Rubeosis iridis of left eye; Translations: [Other vascular disorders of iris and ciliary body, left eye] Onset: 06-06-2018 06-06-2018 Chronic Other eye disorders (12 sources) Bilateral vitreous floaters; Translations: [Other vitreous opacities, bilateral] Onset: 06-06-2018 05-23-2019 Chronic Other gastrointestinal disorders (1 source) Chronic constipation; Translations: [Other constipation] 01-21-2023 Episodic Other lower respiratory disease (3 sources) Cough; Translations: [Cough] 08-15-2021 Episodic Other screening for suspected conditions (not mental disorders or infectious disease) (11 sources) Patient encounter status; Translations: [Encounter for screening mammogram for malignant neoplasm of breast] Onset: 06-17-2015 06-17-2015 Episodic Other skin disorders (1 source) Actinic keratosis; Translations: [Actinic keratosis] Episodic Other skin disorders (1 source) Eruption; Translations: [Rash and other nonspecific skin eruption] 12-09-2022 Episodic Other upper respiratory disease (1 source) Pain in throat 08-15-2021 Episodic Other upper respiratory infections (3 sources) Sore throat symptom; Translations: [Acute pharyngitis] 08-15-2021 Episodic Residual codes; unclassified (1 source) Pain; Translations: [Pain, unspecified] Episodic Rheumatoid arthritis and related disease (12 sources) Rheumatoid arthritis; Translations: [Rheumatoid arthritis, unspecified] 08-13-2015 Chronic Unclassified (2 sources) SORE THRAOT CHEST CONGESTION COUGH SINUS 08-15-2021 Past or Other Problems Problem Classification Problem Date Documented Date Episodic/Chronic Menopausal disorders (6 sources) H/O: high risk medication; Translations: [Hormone replacement therapy] Onset: 07-05-2009 07-05-2009 Episodic Mood disorders (5 sources) Mood disorders Onset: 06-22-2021 Resolved: 10-17-2022 09-28-2020 Nonspecific chest pain (12 sources) Chest pain; Translations: [Chest pain, unspecified] Onset: 08-18-2016 08-18-2016 Episodic Other connective tissue disease (6 sources) Pain in right foot; Translations: [Pain in right foot] Onset: 10-18-2020 10-18-2020 Episodic Other eye disorders (12 sources) Hyphema of left eye; Translations: [Hyphema, left eye] Onset: 06-06-2018 06-06-2018 Episodic Other lower respiratory disease (12 sources) Multiple nodules of lung; Translations: [Other nonspecific abnormal finding of lung field] Onset: 08-18-2016 08-18-2016 Episodic Other nervous system disorders (1 source) Postoperative pain ; Translations: [Other acute postprocedural pain] Episodic Pulmonary heart disease (12 sources) H/O: pulmonary embolus; Translations: [Personal history of pulmonary embolism] Onset: 08-18-2016 08-18-2016 Episodic Residual codes; unclassified (1 source) Pain, unspecified; Translations: [Pain] Onset: 09-20-2022 Episodic Unclassified (1 source) Onset: 07-19-2022 07-19-2022 Results Test Name Value Interpretation Reference Range Facil ity Vital Signs Date Time Vital Sign Value Performing Clinician Mike carlin 01-21-2023 09:40-0400 Body temperature 98.71 [degF] Raúl Chau APRN.CNP Work Phone: [facility] 01-21-2023 09:40-0400 Body weight 67.22 kg Raúl Chau APRN.BEAM DOFFER Work Phone: [facility] 01-21-2023 09:40-0400 Diastolic blood pressure 80 mm[Hg] Raúl Chau APRN.BEAM DOFFER Work Phone: [facility] 01-21-2023 09:40-0400 Heart rate 83 /min Raúl Chau APRN.BEAM DOFFER Work Phone: [facility] 01-21-2023 09:40-0400 Respiratory rate 18 /min Raúl Chau APRN.BEAM DOFFER Work Phone: [facility] 01-21-2023 09:40-0400 SaO2% (BldA) [Mass fraction] 98 % Raúl Chau SEO STRATEGIST.BEAM DOFFER Work Phone: [facility] 01-21-2023 09:40-0400 Systolic blood pressure 147 mm[Hg] Raúl Chau SEO STRATEGIST.BEAM DOFFER Work Phone: [facility] 12-09-2022 13:33-0400 Body temperature 98.1 [degF] Lin Praisler-Wood SEO STRATEGIST.BEAM DOFFER Work Phone: [facility] 12-09-2022 13:33-0400 Body weight 67.31 kg Lin Praisler-Wood SEO STRATEGIST.BEAM DOFFER Work Phone: [facility] 12-09-2022 13:33-0400 Diastolic blood pressure 60 mm[Hg] Lin Praisler-Wood SEO STRATEGIST.BEAM DOFFER Work Phone: [facility] 12-09-2022 13:33-0400 Heart rate 90 /min Lin Praisler-Wood SEO STRATEGIST.BEAM DOFFER Work Phone: [facility] 12-09-2022 13:33-0400 Respiratory rate 20 /min Lin Praisler-Wood SEO STRATEGIST.BEAM DOFFER Work Phone: [facility] 12-09-2022 13:33-0400 SaO2% (BldA) [Mass fraction] 96 % Lin Praisler-Wood SEO STRATEGIST.BEAM DOFFER Work Phone: [facility] 12-09-2022 13:33-0400 Systolic blood pressure 120 mm[Hg] Lin Praisler-Wood SEO STRATEGIST.BEAM DOFFER Work Phone: [facility] 10-17-2022 10:56-0400 Body mass index (BMI) [Ratio] 27.25 kg/m2 Sugar Everett SEO STRATEGIST-BEAM DOFFER Work Phone: [facility] 10-17-2022 10:56-0400 Body temperature 98.01 [degF] Sugar Everett SEO STRATEGIST-BEAM DOFFER Work Phone: [facility] 10-17-2022 10:56-0400 Body weight 67.59 kg Sugar Mangino SEO STRATEGIST-BEAM DOFFER Work Phone: [facility] 10-17-2022 10:56-0400 Diastolic blood pressure 63 mm[Hg] Sugar Mangino SEO STRATEGIST-BEAM DOFFER Work Phone: [facility] 10-17-2022 10:56-0400 Heart rate 89 /min Sugar Mangino SEO STRATEGIST-BEAM DOFFER Work Phone: [facility] 10-17-2022 10:56-0400 Systolic blood pressure 149 mm[Hg] Sugar Mangino SEO STRATEGIST-BEAM DOFFER Work Phone: [facility] 07-19-2022 14:25-0400 Body temperature 98.01 [degF] Renée Gomez MD Work Phone: [facility] 07-19-2022 14:25-0400 Diastolic blood pressure 77 mm[Hg] Renée Gomez MD Work Phone: [facility] 07-19-2022 14:25-0400 Heart rate 93 /min Renée Gomez MD Work Phone: [facility] 07-19-2022 14:25-0400 Respiratory rate 18 /min Renée Gomez MD Work Phone: [facility] 07-19-2022 14:25-0400 SaO2% (BldA) [Mass fraction] 97 % Renée Gomez MD Work Phone: [facility] 07-19-2022 14:25-0400 Systolic blood pressure 168 mm[Hg] Renée Gomez MD Work Phone: [facility] 02-07-2022 11:26-0400 Body temperature 98.71 [degF] Cathi Marin SEO STRATEGIST.BEAM DOFFER Work Phone: [facility] 02-07-2022 11:26-0400 Body weight 65.77 kg Cathi Marin SEO STRATEGIST.BEAM DOFFER Work Phone: [facility] 02-07-2022 11:26-0400 Diastolic blood pressure 80 mm[Hg] Cathi Marin SEO STRATEGIST.BEAM DOFFER Work Phone: [facility] 02-07-2022 11:26-0400 Heart rate 74 /min Cathi Marin SEO STRATEGIST.BEAM DOFFER Work Phone: [facility] 02-07-2022 11:26-0400 Respiratory rate 18 /min Cathi Marin SEO STRATEGIST.BEAM DOFFER Work Phone: [facility] 02-07-2022 11:26-0400 SaO2% (BldA) [Mass fraction] 96 % Cathi Marin SEO STRATEGIST.BEAM DOFFER Work Phone: [facility] 02-07-2022 11:26-0400 Systolic blood pressure 124 mm[Hg] Cathi Marin SEO STRATEGIST.BEAM DOFFER Work Phone: [facility] 10-04-2021 11:06-0400 Body mass index (BMI) [Ratio] 26.56 kg/m2 Sugar Mangino SEO STRATEGIST-BEAM DOFFER Work Phone: [facility] 10-04-2021 11:06-0400 Body temperature 98.01 [degF] Sugar Mangino SEO STRATEGIST-BEAM DOFFER Work Phone: [facility] 10-04-2021 11:06-0400 Body weight 65.86 kg Sugar Mangino SEO STRATEGIST-BEAM DOFFER Work Phone: [facility] 10-04-2021 11:06-0400 Diastolic blood pressure 65 mm[Hg] Sugar Mangino SEO STRATEGIST-BEAM DOFFER Work Phone: [facility] 10-04-2021 11:06-0400 Heart rate 76 /min Sugar Mangino SEO STRATEGIST-BEAM DOFFER Work Phone: [facility] 10-04-2021 11:06-0400 SaO2% (BldA) [Mass fraction] 99 % Sugar Mangino SEO STRATEGIST-BEAM DOFFER Work Phone: [facility] 10-04-2021 11:06-0400 Systolic blood pressure 138 mm[Hg] Sugar Everett APRN-BEAM DOFFER Work Phone: [facility] 08-15-2021 11:20-0400 Body height 157.4 cm Isra Alfaro Other Phone: [facility] 08-15-2021 11:20-0400 Body temperature 100.76 [degF] Isra Alfaro Other Phone: [facility] 08-15-2021 11:20-0400 Diastolic blood pressure 69 mm[Hg] Isra Alfaro Other Phone: [facility] 08-15-2021 11:20-0400 Heart rate 97 /min Isra Alfaro Other Phone: [facility] 08-15-2021 11:20-0400 Respiratory rate 16 /min Isra Alfaro Other Phone: [facility] 08-15-2021 11:20-0400 SaO2% (BldA) [Mass fraction] 95 % Isra Alfaro Other Phone: [facility] 08-15-2021 11:20-0400 Systolic blood pressure 138 mm[Hg] Isra Alfaro Other Phone: [facility] 11-26-2020 09:00-0400 Diastolic blood pressure 76 mm[Hg] Kiran Cevallos MD Work Phone: [facility] 11-26-2020 09:00-0400 Heart rate 80 /min Kiran Cevallos MD Work Phone: [facility] 11-26-2020 09:00-0400 Respiratory rate 22 /min Kiran Cevallos MD Work Phone: [facility] 11-26-2020 09:00-0400 SaO2% (BldA) [Mass fraction] 99 % Kiran Cevallos MD Work Phone: [facility] 11-26-2020 09:00-0400 Systolic blood pressure 167 mm[Hg] Kiran Cevallos MD Work Phone: [facility] 11-26-2020 08:24-0400 Body temperature 97.3 [degF] Kiran Cevallos MD Work Phone: [facility] 11-26-2020 06:45-0400 Body height 157.5 cm Kiran Cevallos MD Work Phone: [facility] 11-26-2020 06:45-0400 Body mass index (BMI) [Ratio] 27.58 kg/m2 Kiran Cevallos MD Work Phone: [facility] 11-26-2020 06:45-0400 Body weight 68.4 kg Kiran Cevallos MD Work Phone: [facility] Encounters Encounter Date Encounter Type Care Provider Facility Start: 01-21-2023 End: 01-21-2023 ambulatory ISRA ALFARO Facility:[facility] Start: 01-21-2023 End: 01-21-2023 Patient encounter procedure Raúl Chau APRN.BEAM DOFFER Work Phone: [facility] Procedures Date Procedure Procedure Detail Performing Clinician Start: 07-19-2022 GENERAL PROCEDURE Renée Gomez MD Work Phone: Start: 10-04-2021 Screening mammograph y bi 2-view breast inc cad Sugar Everett SEO STRATEGIST-BEAM DOFFER Work Phone: Start: 11-26-2020 US IMAGING OR Rafiq damon DO Work Phone: Start: 05-22-2018 Antibody screen ARACELI BERNAL Plan of Treatment Date Care Activity Detail Author Start: 12-10-2023 BP CONTROLLED (<130/80) BP CONTROLLED (<130/80) [facility] Start: 10-23-2023 End: 10-23-2023 Patient encounter procedure Mateo Refugio Mammography at [facility] Start: 10-18-2023 End: 11-18-2023 MG Breast - bilateral Screening MAMMO SCREENING WITH BLAS BILATERAL Imaging Routine History of left breast cancer Encounter for screening mammogram for malignant neoplasm of breast Expected: 10/18/2023, Expires: 11/18/2023 [facility] Immunizations Immunization Date Immunization Notes Care Provider Fa kieran 08-28-2022 zoster vaccine, unspecified formulation Sugar Mangino SEO STRATEGIST-BEAM DOFFER Work Phone: [facility] 03-08-2022 influenza virus vaccine, unspecified formulation Sugar Mangino SEO STRATEGIST-BEAM DOFFER Work Phone: [facility] 02-04-2013 influenza virus vaccine, unspecified formulation Kiran Cevallos MD Work Phone: [facility] Payers Date Payer Category Payer Unknown [id number] 2021 Medicare [id number] 2021 Medicare [employer] MEDICARE A ETNA MEDICARE PPO [id number] 2021-Present [phone] [address] [place] [address] PPO [id number] 2021 Medicare [id number] 2014 Medicare [place]IC[place] MED[place]NA PPO [id number] 2014-Present [address] [place] [address] [id number] 2011 Unknown 2011 Unknown [id number] 1945 Unknown [id number] 1945 Unknown [id number] 1945 Unknown [id number] Social History Date Type Detail Facility Tobacco smoking stat NHIS Never smoker [facility] Start: 11-26-2020 End: 10-17-2022 Alcohol intake Current drinker of alcohol (finding) [facility] Start: 11-26-2020 End: 10-18-2022 Alcohol intake [facility] Start: 09-28-2020 History SDOH Financial 5 [facility] Start: 09-28-2020 History SDOH Food Worry 1 [facility] Start: 09-28-2020 History SDOH Transpo rt Med 2 [facility] Start: 1945 Sex Assigned At Not on file O [facility] Start: 01-28-2022 End: 02-07-2022 Exposure to SARS-CoV-2 (event) Not sure [facility] Tobacco smoking consumption unknown [facility] Start: 09-14-2014 End: 02-07-2022 Tobacco smoking status NHIS Never smoked tobacco [facility] Start: 09-14-2014 End: 02-07-2022 Tobacco use and exposure Smokeless tobacco non-user [facility] Start: 06-24-2021 End: 01-21-2023 Alcohol intake Current non-drinker of alcohol (finding) [facility] Start: 09-23-2010 History SDOH Alcohol Comment seldom- <[address] [facility] Start: 10-17-2022 End: 10-18-2022 Tobacco use panel [facility] How hard is it for y ou to pay for the very basics like food, housing, medical care, and heating Not hard at all [facility] (I/We) worried carole er (my/our) food would run out before (I/we) got money to buy more. Never true [facility] Gender identity Identifies as fe male gender (finding) [facility] Medical Equipment Procedure Code Equipment Code Equipment Origin al Text Equipment Identifier Dates Screw 4.0x30mm 2 .030 - [id number] Start: 09-14-2014 Screw 4.0x45mm 2 045 - [id number] Start: 09-14-2014 30.0 Mm Micro Ac utrak 2 Bone Screw [id number] Start: 09-14-2014 Screw Bone 44mm 4mm Compression Self Tap Cannulated Hex - [id number] Start: 11-26-2020 Cement Simplex P Tobramycin Bone Full Dose Radiopaque Preblend Sterile - [id number] Start: 09-02-2015 Cement Simplex P Bone Radiopaque Full Dose - [id number] Start: 08-03-2016 Liner 36mm 0d E X3 5.9mm Acetabular Hip - [id number] Start: 05-30-2018 Shell Trident 52 mm E Hemispherical Metal Jimenez Acetabular 5 Screw Hole Cluster - [id number] Start: 05-30-2018 Component Triath rosana 4 Femoral Cruciate Retain Cemented Knee Left - [id number] Start: 09-02-2015 Insert Triathlon 3 X3 9mm Tibial Cruciate Retaining Knee - [id number] Start: 09-02-2015 Insert Triathlon 3 X3 13mm Tibial Cruciate Retain Knee - [id number] Start: 08-03-2016 Component Triath rosana 4 Femoral Cruciate Retain Cemented Knee Right - [id number] Start: 08-03-2016 Head V40 36mm -2 .5mm Offset Taper Biolox Delta Femoral Hip - [id number] Start: 05-30-2018 Component Triath rosana 32mm 10mm Patellar Asymmetric Knee - [id number] Start: 09-02-2015 Component Triath rosana 32mm 10mm Patellar Asymmetric Knee - [id number] Start: 08-03-2016 Stem Accolade Ii 5 132d Femoral - [id number] Start: 05-30-2018 Mesh Srg Gynmsh 6x4in Pelv - [id number] Start: 09-28-2010 Baseplate Triath rosana 3 Tibial Primary Cement Knee - [id number] Start: 09-02-2015 Baseplate Triath rosana 3 Tibial Primary Cement Knee - [id number] Start: 08-03-2016 Screw Trident Secur-Fit Torx 6.5mm Titanium 25mm Bone Sterile Acetabular - [id number] Start: 05-30-2018 Clinical Notes 06-06-2018 to 01-21-2023 Raúl Chau APRN.BEAM DOFFER - 01/21/2023 10:41 AM EDTPraLin Helton APRN.BEAM DOFFER - 12/09/2022 1:54 PM EDTPatient InstructionsCampbell Villar PA-C - 10/18/2022 9:38 AM EDTPatient Instructions Note Date & Type Note Facility 01-21-2023 Note HNO ID: [id number] Author: Raúl Chau APRN.BEAM DOFFER Service: ? Author Type: Nurse Practitioner Type: Progress Notes Filed: 01/21/2023 10:44 AM Note Text: Subjective HPI HPI Reg Dorsey is a 77 year old female who presents today for CC of constipation, moving small hard balls as of yesterday. Has hx of this on/off for year. Has tried otc oral medication for relief. Symptoms are worsened by nothing. Denies abdominal pain, rectal discomfort, rectal bleeding. Denies voiding abnormalities. .Patient presents with: Constipation: For a few months, taking gerilax x 1 week no n/v PAST MEDICAL HISTORY Diagnosis Date Asthma Breast cancer (HCC) 1999 tx with chemo and radiation Essential hypertension 06/06/2018 Hx of seasonal allergies Hyperlipidemia Malignant melanoma (HCC) Other and combined forms of senile cataract PE (pulmonary embolism) 2007 after surgery, 6 months of coumadin Rheumatoid arthritis (HCC) PAST SURGICAL HISTORY Procedure Laterality Date ANESTH DIAGNOSTIC ARTHROSCOPIC PROC KNEE JOINT 2015 left knee ARTHRP ACETBLR/PROX FEM PROSTC AGRFT/ALGRFT Right 05/30/2018 ARTHRP KNE CONDYLEANDPLATU MEDIALANDLAT COMPARTMENTS 07/2016 right knee total replacement F ESWL UNILATERAL 2009 left sided in 11/2009 LUMPECTOMY/RADIOTHERAPY DIAG MAMM/A10 Left 1999 XRT/chemo 1999 PAST SURGICAL HISTORY OF 2007 Bunionectomy right hallux. PAST SURGICAL HISTORY OF 2003 Carpal tunnel right wrist PAST SURGICAL HISTORY OF 1963 thyroid nodule removed PAST SURGICAL HISTORY OF 07/05/2010 Surgery on ingrown toenail 5th digit left foot PAST SURGICAL HISTORY OF 09/2010 Uterine Sling ALLERGIES Seasonal Allergies, House Dust, Mold, and Venom-Honey Bee MEDICATIONS albuterol HFA (PROVENTIL HFA, VENTOLIN HFA) 90 mcg/actuation inhaler Inhale 2 Puffs as instructed as needed for Wheezing/Shortness of Breath. Amoxicillin 500 mg tablet Take 4 tablets one hour prior to procedure, and 2 tablets six hours after dental procedure. atorvastatin (LIPITOR) 20 mg tablet Take 20 mg by mouth daily at bedtime. calcium citrate/vitamin D3 (CITRACAL + D ORAL) Take by mouth once daily. Cholecalciferol, Vitamin D3, 10 mcg (400 unit) chew Take by mouth once daily. (Patient not taking: Reported on 07/05/2022) glycerin ADULT suppository 1 Suppository by RECTAL route as needed. lisinopril (ZESTRIL, PRINIVIL) 10 mg tablet mometasone-formoterol (DULERA) 200-5 mcg/actuation inhaler Inhale 1 Puff as instructed once daily. multivit-min/iron/folic/lutein (CENTRUM SILVER WOMEN ORAL) Take by mouth once daily. predniSONE (DELTASONE) 10 mg tablet Take 4 tabs daily for 3 days, then 2 tabs daily for 3 days, then 1 tab daily for 3 days with food. (Patient not taking: Reported on 07/05/2022) sodium phosphate-sodium bisphosphate (FLEET) enema 133 mL by RECTAL route one time only for 1 dose. triamcinolone (KENALOG) 0.025 % cream Apply 1 application to affected area twice daily. FAMILY HISTORY Problem Relation Age of Onset Heart Father chf Alzheimer's Disease Mother Diabetes Paternal Aunt Cancer Paternal Grandmother pancreatic Diabetes Maternal Grandmother Coronary Artery Disease Brother Social History Tobacco Use Smoking status: Never Smokeless tobacco: Never Vaping Use Vaping Use: Never used Substance Use Topics Alcohol use: No Comment: seldom- <1 typically Drug use: No ROS Objective Blood pressure 147/80, pulse 83, temperature 37.1 ?C (98.7 ?F), resp. rate 18, weight 67.2 kg (148 lb 3.2 oz), SpO2 98 %. Physical Exam Constitutional: General: She is not in acute distress. Appearance: Normal appearance. She is not toxic-appearing. Cardiovascular: Rate and Rhythm: Normal rate and regular rhythm. Heart sounds: Normal heart sounds. Pulmonary: Effort: Pulmonary effort is normal. Breath sounds: Normal breath sounds. Abdominal: General: Bowel sounds are normal. Palpations: Abdomen is soft. Tenderness: There is no abdominal tenderness. Skin: General: Skin is warm and dry. ASSESSMENT/PLAN: 1. Chronic constipation - ICD9: 564.00, ICD10: K59.09 Push fluids Try fleets/suppository See pcp in 2 days if s/s persist Urgent follow up for worsening symptoms. - SODIUM PHOSPHATES 19 GRAM-7 GRAM/118 ML ENEMA - GLYCERIN (ADULT) RECTAL SUPPOSITORY Raúl Chau APRN.[facility] 01-21-2023 History of Present illness Narrative Subjective HPI HPI Reg Dorsey is a 77 year old female who presents today for CC of constipation, moving small hard balls as of yesterday. Has hx of this on/off for year. Has tried otc oral medication for relief. Symptoms are worsened by nothing. Denies abdominal pain, rectal discomfort, rectal bleeding. Denies voiding abnormalities. .Patient presents with: Constipation: For a few months, taking gerilax x 1 week no n/v PAST MEDICAL HISTORY Diagnosis Date Asthma Breast cancer (HCC) 1999 tx with chemo and radiation Essential hypertension 06/06/2018 Hx of seasonal allergies Hyperlipidemia Malignant melanoma (HCC) Other and combined forms of senile cataract PE (pulmonary embolism) 2007 after surgery, 6 months of coumadin Rheumatoid arthritis (HCC) PAST SURGICAL HISTORY Procedure Laterality Date ANESTH DIAGNOSTIC ARTHROSCOPIC PROC KNEE JOINT 2015 left knee ARTHRP ACETBLR/PROX FEM PROSTC AGRFT/ALGRFT Right 05/30/2018 ARTHRP KNE CONDYLE&PLATU MEDIAL&LAT COMPARTMENTS 07/2016 right knee total replacement F ESWL UNILATERAL 2009 left sided in 11/2009 LUMPECTOMY/RADIOTHERAPY DIAG MAMM/A10 Left 1999 XRT/chemo 1999 PAST SURGICAL HISTORY OF 2007 Bunionectomy right hallux. PAST SURGICAL HISTORY OF 2003 Carpal tunnel right wrist PAST SURGICAL HISTORY OF 1963 thyroid nodule removed PAST SURGICAL HISTORY OF 07/05/2010 Surgery on ingrown toenail 5th digit left foot PAST SURGICAL HISTORY OF 09/2010 Uterine Sling ALLERGIES Seasonal Allergies, House Dust, Mold, and Venom-Honey Bee MEDICATIONS albuterol HFA (PROVENTIL HFA, VENTOLIN HFA) 90 mcg/actuation inhaler Inhale 2 Puffs as instructed as needed for Wheezing/Shortness of Breath. Amoxicillin 500 mg tablet Take 4 tablets one hour prior to procedure, and 2 tablets six hours after dental procedure. atorvastatin (LIPITOR) 20 mg tablet Take 20 mg by mouth daily at bedtime. calcium citrate/vitamin D3 (CITRACAL + D ORAL) Take by mouth once daily. Cholecalciferol, Vitamin D3, 10 mcg (400 unit) chew Take by mouth once daily. (Patient not taking: Reported on 07/05/2022) glycerin ADULT suppository 1 Suppository by RECTAL route as needed. lisinopril (ZESTRIL, PRINIVIL) 10 mg tablet mometasone-formoterol (DULERA) 200-5 mcg/actuation inhaler Inhale 1 Puff as instructed once daily. multivit-min/iron/folic/lutein (CENTRUM SILVER WOMEN ORAL) Take by mouth once daily. predniSONE (DELTASONE) 10 mg tablet Take 4 tabs daily for 3 days, then 2 tabs daily for 3 days, then 1 tab daily for 3 days with food. (Patient not taking: Reported on 07/05/2022) sodium phosphate-sodium bisphosphate (FLEET) enema 133 mL by RECTAL route one time only for 1 dose. triamcinolone (KENALOG) 0.025 % cream Apply 1 application to affected area twice daily. FAMILY HISTORY Problem Relation Age of Onset Heart Father chf Alzheimer's Disease Mother Diabetes Paternal Aunt Cancer Paternal Grandmother pancreatic Diabetes Maternal Grandmother Coronary Artery Disease Brother Social History Tobacco Use Smoking status: Never Smokeless tobacco: Never Vaping Use Vaping Use: Never used Substance Use Topics Alcohol use: No Comment: seldom- <1 typically Drug use: No ROS Objective Blood pressure 147/80, pulse 83, temperature 37.1 C (98.7 F), resp. rate 18, weight 67.2 kg (148 lb 3.2 oz), SpO2 98 %. Physical Exam Constitutional: General: She is not in acute distress. Appearance: Normal appearance. She is not toxic-appearing. Cardiovascular: Rate and Rhythm: Normal rate and regular rhythm. Heart sounds: Normal heart sounds. Pulmonary: Effort: Pulmonary effort is normal. Breath sounds: Normal breath sounds. Abdominal: General: Bowel sounds are normal. Palpations: Abdomen is soft. Tenderness: There is no abdominal tenderness. Skin: General: Skin is warm and dry. ASSESSMENT/PLAN: 1. Chronic constipation - ICD9: 564.00, ICD10: K59.09 Push fluids Try fleets/suppository See pcp in 2 days if s/s persist Urgent follow up for worsening symptoms. - SODIUM PHOSPHATES 19 GRAM-7 GRAM/118 ML ENEMA - GLYCERIN (ADULT) RECTAL SUPPOSITORY Raúl Chau APRN.[facility] documented in this encounter [facility] 01-10-2023 Note HNO ID: [id number] Author: Mildred Cervantes II, OD Service: ? 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 Patient will call when ready for cataract consult. Otherwise contact lens monovision souza stable. I have confirmed and edited as necessary the relevant ophthalmic history, ROS, and the neuro exam findings as obtained by others. I have seen and examined Reg Dorsey. I have discussed the case and the management of this patient's care with the Resident/Fellow, if applicable. I also have reviewed and agree with the assessment and plan as stated above and agree with all of its relevant components. Mildred Cervantes II, OD [facility] 12-09-2022 Note HNO ID: [id number] Author: Lin Oliva APRN.PAUL Service: ? Author Type: Nurse Practitioner Type: Progress Notes Filed: 12/09/2022 1:56 PM Note Text: Subjective HPI Reg Dorsey is a 77 year old female who presents with a rash on her right leg that extends from her right hip to her right ankle. She was sitting in the sun at a football game and had jeans on. She noticed her leg felt very hot and later took the jeans off and saw the rash. She notes the rash is burning and itches. She took benadryl at home. She has worn these jeans previously and did not have a rash from them. Review of Systems Constitutional: Negative for chills and fever. Respiratory: Negative. Cardiovascular: Negative. Musculoskeletal: Negative for myalgias. Skin: Positive for itching and rash. BP 120/60 Pulse 90 Temp 36.7 ?C (98.1 ?F) Resp 20 Wt 67.3 kg (148 lb 6.4 oz) SpO2 96% BMI 27.14 kg/m? . PAST MEDICAL HISTORY Diagnosis Date Asthma Breast cancer (HCC) 1999 tx with chemo and radiation Essential hypertension 06/06/2018 Hx of seasonal allergies Hyperlipidemia Malignant melanoma (HCC) Other and combined forms of senile cataract PE (pulmonary embolism) 2007 after surgery, 6 months of coumadin Rheumatoid arthritis (HCC) PAST SURGICAL HISTORY Procedure Laterality Date ANESTH DIAGNOSTIC ARTHROSCOPIC PROC KNEE JOINT 2015 left knee ARTHRP ACETBLR/PROX FEM PROSTC AGRFT/ALGRFT Right 05/30/2018 ARTHRP KNE CONDYLEANDPLATU MEDIALANDLAT COMPARTMENTS 07/2016 right knee total replacement F ESWL UNILATERAL 2009 left sided in 11/2009 LUMPECTOMY/RADIOTHERAPY DIAG MAMM/A10 Left 2000 XRT/chemo 1999 PAST SURGICAL HISTORY OF 2007 Bunionectomy right hallux. PAST SURGICAL HISTORY OF 2003 Carpal tunnel right wrist PAST SURGICAL HISTORY OF 1963 thyroid nodule removed PAST SURGICAL HISTORY OF 07/05/2010 Surgery on ingrown toenail 5th digit left foot PAST SURGICAL HISTORY OF 09/2010 Uterine Sling ALLERGIES Seasonal Allergies, House Dust, Mold, and Venom-Honey Bee MEDICATIONS amoxicillin (AMOXIL) 500 mg capsule take 4 capsules by mouth 1 hour prior to appointment then take 2 capsules 4-6 HOURS FOLLOWING DENTAL VISIT atorvastatin (LIPITOR) 20 mg tablet Take 20 mg by mouth daily at bedtime. multivit-min/iron/folic/lutein (CENTRUM SILVER WOMEN ORAL) Take by mouth once daily. calcium citrate/vitamin D3 (CITRACAL + D ORAL) Take by mouth once daily. lisinopril (ZESTRIL, PRINIVIL) 10 mg tablet mometasone-formoterol (DULERA) 200-5 mcg/actuation inhaler Inhale 1 Puff as instructed once daily. albuterol HFA (PROVENTIL HFA, VENTOLIN HFA) 90 mcg/actuation inhaler Inhale 2 Puffs as instructed as needed for Wheezing/Shortness of Breath. triamcinolone (KENALOG) 0.025 % cream Apply 1 application to affected area twice daily. predniSONE (DELTASONE) 10 mg tablet Take 4 tabs daily for 3 days, then 2 tabs daily for 3 days, then 1 tab daily for 3 days with food. (Patient not taking: Reported on 07/05/2022) Amoxicillin 500 mg tablet Take 4 tablets one hour prior to procedure, and 2 tablets six hours after dental procedure. (Patient not taking: Reported on 07/05/2022) Amoxicillin 500 mg tablet Take 4 tablets one hour prior to procedure, and 2 tablets six hours after dental procedure. (Patient not taking: Reported on 07/05/2022) Cholecalciferol, Vitamin D3, 10 mcg (400 unit) chew Take by mouth once daily. (Patient not taking: Reported on 07/05/2022) FAMILY HISTORY Problem Relation Age of Onset Heart Father chf Alzheimer's Disease Mother Diabetes Paternal Aunt Cancer Paternal Grandmother pancreatic Diabetes Maternal Grandmother Coronary Artery Disease Brother Social History Tobacco Use Smoking status: Never Smokeless tobacco: Never Vaping Use Vaping Use: Never used Substance Use Topics Alcohol use: No Comment: seldom- <1 typically Drug use: No Objective Physical Exam Vitals and nursing note reviewed. Constitutional: General: She is not in acute distress. Appearance: Normal appearance. She is not ill-appearing. Cardiovascular: Rate and Rhythm: Normal rate. Pulmonary: Effort: Pulmonary effort is normal. Skin: General: Skin is warm and dry. Capillary Refill: Capillary refill takes less than 2 seconds. Findings: Erythema and rash present. Neurological: Mental Status: She is alert. ASSESSMENT/PLAN: 1. Rash - ICD9: 782.1, ICD10: R21 - TRIAMCINOLONE ACETONIDE 0.025 % TOPICAL CREAM - Follow-up with your PCP in 3-5 days if symptoms have not improved or sooner if symptoms worsen - Discussed red flags and need for immediate medical evaluation if any occur. Lin Oliva APRN.[facility] 09-02-2023 History of Present illness Narrative Images from the original note were not included. Subjective HPI Reg Dorsey is a 77 year old female who presents with a rash on her right leg that extends from her right hip to her right ankle. She was sitting in the sun at a football game and had jeans on. She noticed her leg felt very hot and later took the jeans off and saw the rash. She notes the rash is burning and itches. She took benadryl at home. She has worn these jeans previously and did not have a rash from them. Review of Systems Constitutional: Negative for chills and fever. Respiratory: Negative. Cardiovascular: Negative. Musculoskeletal: Negative for myalgias. Skin: Positive for itching and rash. BP 120/60 Pulse 90 Temp 36.7 C (98.1 F) Resp 20 Wt 67.3 kg (148 lb 6.4 oz) SpO2 96% BMI 27.14 kg/m . PAST MEDICAL HISTORY Diagnosis Date Asthma Breast cancer (HCC) 1999 tx with chemo and radiation Essential hypertension 06/06/2018 Hx of seasonal allergies Hyperlipidemia Malignant melanoma (HCC) Other and combined forms of senile cataract PE (pulmonary embolism) 2007 after surgery, 6 months of coumadin Rheumatoid arthritis (HCC) PAST SURGICAL HISTORY Procedure Laterality Date ANESTH DIAGNOSTIC ARTHROSCOPIC PROC KNEE JOINT 2015 left knee ARTHRP ACETBLR/PROX FEM PROSTC AGRFT/ALGRFT Right 05/30/2018 ARTHRP KNE CONDYLE&PLATU MEDIAL&LAT COMPARTMENTS 07/2016 right knee total replacement F ESWL UNILATERAL 2009 left sided in 11/2009 LUMPECTOMY/RADIOTHERAPY DIAG MAMM/A10 Left 1999 XRT/chemo 1999 PAST SURGICAL HISTORY OF 2007 Bunionectomy right hallux. PAST SURGICAL HISTORY OF 2003 Carpal tunnel right wrist PAST SURGICAL HISTORY OF 1963 thyroid nodule removed PAST SURGICAL HISTORY OF 07/05/2010 Surgery on ingrown toenail 5th digit left foot PAST SURGICAL HISTORY OF 09/2010 Uterine Sling ALLERGIES Seasonal Allergies, House Dust, Mold, and Venom-Honey Bee MEDICATIONS amoxicillin (AMOXIL) 500 mg capsule take 4 capsules by mouth 1 hour prior to appointment then take 2 capsules 4-6 HOURS FOLLOWING DENTAL VISIT atorvastatin (LIPITOR) 20 mg tablet Take 20 mg by mouth daily at bedtime. multivit-min/iron/folic/lutein (CENTRUM SILVER WOMEN ORAL) Take by mouth once daily. calcium citrate/vitamin D3 (CITRACAL + D ORAL) Take by mouth once daily. lisinopril (ZESTRIL, PRINIVIL) 10 mg tablet mometasone-formoterol (DULERA) 200-5 mcg/actuation inhaler Inhale 1 Puff as instructed once daily. albuterol HFA (PROVENTIL HFA, VENTOLIN HFA) 90 mcg/actuation inhaler Inhale 2 Puffs as instructed as needed for Wheezing/Shortness of Breath. triamcinolone (KENALOG) 0.025 % cream Apply 1 application to affected area twice daily. predniSONE (DELTASONE) 10 mg tablet Take 4 tabs daily for 3 days, then 2 tabs daily for 3 days, then 1 tab daily for 3 days with food. (Patient not taking: Reported on 07/05/2022) Amoxicillin 500 mg tablet Take 4 tablets one hour prior to procedure, and 2 tablets six hours after dental procedure. (Patient not taking: Reported on 07/05/2022) Amoxicillin 500 mg tablet Take 4 tablets one hour prior to procedure, and 2 tablets six hours after dental procedure. (Patient not taking: Reported on 07/05/2022) Cholecalciferol, Vitamin D3, 10 mcg (400 unit) chew Take by mouth once daily. (Patient not taking: Reported on 07/05/2022) FAMILY HISTORY Problem Relation Age of Onset Heart Father chf Alzheimer's Disease Mother Diabetes Paternal Aunt Cancer Paternal Grandmother pancreatic Diabetes Maternal Grandmother Coronary Artery Disease Brother Social History Tobacco Use Smoking status: Never Smokeless tobacco: Never Vaping Use Vaping Use: Never used Substance Use Topics Alcohol use: No Comment: seldom- <1 typically Drug use: No Objective Physical Exam Vitals and nursing note reviewed. Constitutional: General: She is not in acute distress. Appearance: Normal appearance. She is not ill-appearing. Cardiovascular: Rate and Rhythm: Normal rate. Pulmonary: Effort: Pulmonary effort is normal. Skin: General: Skin is warm and dry. Capillary Refill: Capillary refill takes less than 2 seconds. Findings: Erythema and rash present. Neurological: Mental Status: She is alert. ASSESSMENT/PLAN: 1. Rash - ICD9: 782.1, ICD10: R21 - TRIAMCINOLONE ACETONIDE 0.025 % TOPICAL CREAM - Follow-up with your PCP in 3-5 days if symptoms have not improved or sooner if symptoms worsen - Discussed red flags and need for immediate medical evaluation if any occur. Lin Oliva APRN.CNP documented in this encounter [facility] 12-09-2022 Instructions Lin Oliva APRN.CNP - 12/09/2022 1:53 PM EDT ASSESSMENT/PLAN: 1. Rash - ICD9: 782.1, ICD10: R21 - TRIAMCINOLONE ACETONIDE 0.025 % TOPICAL CREAM - Follow-up with your PCP in 3-5 days if symptoms have not improved or sooner if symptoms worsen - Discussed red flags and need for immediate medical evaluation if any occur. Lin Oliva APRN.CNP NONSPECIFIC RASH: Rashes can result from infections, allergies, or irritation of the skin by chemicals or other environmental factors. Rashes can also result from scratching or rubbing the skin too much to relieve itching. Further medical examination may be needed to identify the specific cause and proper treatment of your skin rash. You should treat your rash as recommended by your doctor. If you have itching, you should avoid scratching as much as possible, as this further damages the skin. Ask your doctor or pharmacist if you have any questions about what topical medicines may help relieve your symptoms. Call your doctor right away if your rash is not better in 2-3 days, if it worsens, or if there are signs of infection (increased pain, redness, drainage or pus). documented in this encounter [facility] 10-18-2022 Note HNO ID: [id number] Author: Campbell Villar PA-C Service: ? Author Type: Physician Cupola Repairer Type: Progress Notes Filed: 10/18/2022 11:38 AM Note Text: Ortho Knee Follow Up Note Narrative Referring Provider: No referring provider defined for this encounter. PCP: Isra Alfaro MD IMPRESSION/PLAN: 77 year old s/p Right Total Knee Replacement completed on 08/03/2016. Left total knee 08/23/2015. She fell while playing pickle ball several weeks ago landing on her right knee. She had acute right knee pain for several days following this injury. She made this appointment at that time. She states that her pain is gone on to resolve and feels much better today without any knee pain or other complaints. Recent Surgeries this specialty 05/30/2018 (4yr) ARTHROPLASTY REPLACE JOINT TOTAL HIP (Right) Renate Pitt MD; Guero Amado (Res)(Hist); Leonardo Byrd (Hist) - Posted 08/03/2016 (4yr) ARTHROPLASTY REPLACE JOINT TOTAL KNEE (Right) Renate Pitt MD; Harley Palomino(Hist)MD - Posted 09/02/2015 (7yr) ARTHROPLASTY REPLACE JOINT TOTAL KNEE (Left) Renate Pitt MD; Chavez Dunlap MD - Posted PAIN EVALUATION No data found in the last 1 encounters. 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 PLAN: Continue current conservative treatment. Rest, Ice, Compression, Elevation PRN. Patient Reassurance: Patient reassured and supported. All questions answered. 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 Post-operative recovery was complicated by uneventful/none. Readmission(s) since surgery (90 days post)? No ED Visits AND Hospitalizations - Last 180 days None Patient rates their condition as unchanged. Does the patient still experience pain? No Post Op discharge patient location: in home. Functional Assessment is as follows: completed course of therapy and completed home PT. Functional difficulties: None. Pain Medication: None Currently Ambulating with: no ambulation aides Physical Therapy Data 09/02/2015 09/03/2015 09/03/2015 Therapist that will oversee plan of care Day Collinscynthialeeann, Day GucynthiaDay bradshaw EXAM: POST OP KNEE Bilateral Post-Operative Knee Ambulates with a: normal gait. SKIN: Appropriate postop appearance. LEFT KNEE: Range of motion is 0 degrees in extension and 120 degrees of flexion. Extension La degrees Pain with ROM:Yes There is None effusion. Mal-alignment: No Tender to the palpation of None Neurovascular Status: Sensation Intact and Moves foot and ankle up AND down Stability:Anterior/Posterior- Yes, stable and Varus/Valgus- Yes, stable Quad strength: normal RIGHT KNEE: Range of motion is lacking a few degrees secondary to tight hamstrings degrees in extension and 120 degrees of flexion. Extension La degrees Pain with ROM:No There is None effusion. Mal-alignment: No Tender to the palpation of None Neurovascular Status: Sensation Intact and Moves foot and ankle up AND down Stability:Anterior/Posterior- Yes, stable and Varus/Valgus- Yes, stable Quad strength: normal Imagin. There is no evidence of loosening. Provider: Campbell Villar PA-C [facility] 10-18-2022 History of Present illness Narrative Ortho Knee Follow Up Note Narrative Referring Provider: No referring provider defined for this encounter. PCP: Isra Alfaro MD IMPRESSION/PLAN: 77 year old s/p Right Total Knee Replacement completed on 08/03/2016. Left total knee 08/23/2015. She fell while playing pickle ball several weeks ago landing on her right knee. She had acute right knee pain for several days following this injury. She made this appointment at that time. She states that her pain is gone on to resolve and feels much better today without any knee pain or other complaints. Recent Surgeries this specialty 05/30/2018 (4yr) ARTHROPLASTY REPLACE JOINT TOTAL HIP (Right) Renate Pitt MD; Guero Amado (Res)(Hist); Leonardo Byrd (Hist) - Posted 08/03/2016 (4yr) ARTHROPLASTY REPLACE JOINT TOTAL KNEE (Right) Renate Pitt MD; Harley Palomino(Hist)MD - Posted 09/02/2015 (5yr) ARTHROPLASTY REPLACE JOINT TOTAL KNEE (Left) Renate Pitt MD; Chavez Dunlap MD - Posted PAIN EVALUATION No data found in the last 1 encounters. 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 PLAN: Continue current conservative treatment. Rest, Ice, Compression, Elevation PRN. Patient Reassurance: Patient reassured and supported. All questions answered. 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 Post-operative recovery was complicated by uneventful/none. Readmission(s) since surgery (90 days post)? No ED Visits & Hospitalizations - Last 180 days None Patient rates their condition as unchanged. Does the patient still experience pain? No Post Op discharge patient location: in home. Functional Assessment is as follows: completed course of therapy and completed home PT. Functional difficulties: None. Pain Medication: None Currently Ambulating with: no ambulation aides Physical Therapy Data 09/02/2015 09/03/2015 09/03/2015 Therapist that will oversee plan of care Guddy, Day Abebe Michelle EXAM: POST OP KNEE Bilateral Post-Operative Knee Ambulates with a: normal gait. SKIN: Appropriate postop appearance. LEFT KNEE: Range of motion is 0 degrees in extension and 120 degrees of flexion. Extension La degrees Pain with ROM:Yes There is None effusion. Mal-alignment: No Tender to the palpation of None Neurovascular Status: Sensation Intact and Moves foot and ankle up & down Stability:Anterior/Posterior- Yes, stable and Varus/Valgus- Yes, stable Quad strength: normal RIGHT KNEE: Range of motion is lacking a few degrees secondary to tight hamstrings degrees in extension and 120 degrees of flexion. Extension La degrees Pain with ROM:No There is None effusion. Mal-alignment: No Tender to the palpation of None Neurovascular Status: Sensation Intact and Moves foot and ankle up & down Stability:Anterior/Posterior- Yes, stable and Varus/Valgus- Yes, stable Quad strength: normal Imagin. There is no evidence of loosening. Provider: Campbell Villar PA-C documented in this encounter [facility] 10-17-2022 History of Present illness Narrative Date of Service: 10/17/2022 Clinical Care Team: -Referring Provider: Sugar Everett APRN-BEAM DOFFER -Primary Care Provider: Isra Alfaro Chief complaint: Chief Complaint Patient presents with Follow-up 1 year follow up with imaging. No current concerns. History of Present Illness: Reg Dorsey presents today for a follow-up visit. Briefly, she is a 77 y.o. female with a history of IDC of the left breast. She has been following with Dr Dumont since diagnosis and has now transitioned to my care. She underwent left breast NL lumpectomy with SLNBx performed 06/27/99. 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 The surgical margins are positive at the inferior-anterior margin. Belem assessment demonstrated 0/2. She had a left breast re-excision lumpectomy on 07/10/99 that showed residual 0.2 cm of IDC, final margins negative. She subsequently was treated with adjuvant chemotherapy with AC and radiation. She took Femara for a short-time. She has no new complaints at the present time. She has not noted any new masses or suspicious lesions. She denies new headaches, chest pain, shortness of breath, bone pain, back pain or abdominal pain. She reports no new health changes or updates. She reports increase in urination at night. She will discuss with PCP at next visit. Past Medical History: Diagnosis Date Asthma Breast cancer 1999 left; 1.9cm History of chemotherapy 1999 4 cycles of Adriamycin & Cytoxan History of radiation therapy 1999 Left breast PE (pulmonary embolism) 2006 Renal calculi 11/16 left; had lithotripsy Thyroid nodule 1967 Past Surgical History: Procedure Laterality Date ARTHRODESIS INTERPHALANGEAL JOINT Right 11/26/2020 Laterality: Right; Surgeon: Kiran Cevallos MD; Location: [facility] OSC PERIOP HIP REPLACEMENT Right 2018 KNEE REPLACEMENT Right 07/2016 KNEE REPLACEMENT Left 07/2015 ARTHRODESIS METATARSOPHALANGEAL JOINT Left 09/14/2014 Laterality: Left; Surgeon: Ruddy Mix MD; Location: [facility] MAIN OR CORRECTION HAMMERTOE Left 09/14/2014 Laterality: Left; Surgeon: Ruddy Mix MD; Location: [facility] MAIN OR SKIN BIOPSY Right 06/2014 cheek LITHOTRIPSY 11/16 left renal calculi FOOT SURGERY October 17, 2006 BREAST LUMPECTOMY Left 07/10/1999 IDC reexcision for pos margins BX LYMPH NODE Left 06/27/1999 BREAST LUMPECTOMY Left 06/27/1999 IDC CORE BIOPSY OF THE BREAST Left 1999 IDC THYROID SURGERY 1968 thyroid nodule removed OTHER SURGICAL bladder sling Current Outpatient Medications Medication Sig Dispense Refill ALBUTEROL IN take by inhalation as needed.. Reported on 07/11/2016 atorvastatin 20 MG tablet Take 1 tablet by mouth daily. Calcium Carb-Cholecalciferol (CALCIUM 600-D PO) Take by mouth daily. lisinopril 10 MG Tab tablet Mometasone Furo-Formoterol Fum (DULERA IN) take by inhalation.. Multiple Vitamin (MULTIVITAMIN) Cap Take 1 capsule by mouth daily. acetaminophen 500 MG tablet Take 2 tablets by mouth every 8 hours for 14 days. (first line pain) 84 tablet 0 aspirin EC [address] Take 1 tablet by mouth every 12 hours for 14 days. (blood clot prevention) 28 tablet 0 naproxen 375 MG tablet Take 1 tablet by mouth 2 times daily with meals. (second line - NSAID for pain/swelling) (Patient not taking: Reported on 10/17/2022) 28 tablet 0 oxyCODONE 5 MG tablet Take 1 tablet by mouth every 4 hours as needed for Severe Pain for up to 2 days. (narcotic - pain) 12 tablet 0 No current facility-administered medications for this visit. Allergies Allergen Reactions Other Shortness of Breath Hairy animals, molds *Seasonal Bee Venom Swelling Social History: Social History Tobacco Use Smoking status: Never Smokeless tobacco: Never Substance Use Topics Alcohol use: Yes Alcohol/week: 0.0 standard drinks of alcohol Types: 1 - 2 Standard drinks or equivalent per week Drug use: No Family History Problem Relation Age of Onset Heart Failure Mother Hypertension Mother Myocardial Infarction Brother Uterine Cancer Maternal Aunt Cancer- Other Paternal Grandmother pancreatic cancer Diabetes Paternal Uncle Dysrhythmia Son Diabetes Other Aneurysm Neg Hx Bleeding or Clotting Problems Neg Hx Stroke Neg Hx Heart Disease - Other Neg Hx Breast Cancer Neg Hx Ovarian Cancer Neg Hx Medical/Surgical/Family/Social History: I have reviewed Ms. Dorsey's medical, surgical and other pertinent history in detail, and have updated the computerized patient record where appropriate. Review of Systems: Negative for additional constitutional, HEENT, cardiovascular, respiratory, gastrointestinal, genitourinary, musculoskeletal, integumentary, neurological, psychiatric, endocrine, or hematologic/lymphatic complaints aside from that which was mentioned in the history of present illness. Physical Examination: General: The patient is a well developed, well nourished female who appears her stated age of 77 y.o.. Vitals: BP 149/63 (BP Location: Right arm, BP Position: Sitting) Pulse 89 Temp 98 F (36.7 C) (Oral) Wt 67.6 kg (149 lb) BMI 27.25 kg/m Smoking Status Never Neuro/psych: Her speech patterns and movements are normal. Her affect is appropriate. She is oriented to person, place and time. Recent and remote memory is intact. Neck: The trachea is in the midline. Neck is supple without lymphadenopathy or thyromegaly Breasts: The breasts appear asymmetrical. There is a well healed incision in the left upper quadrant with volume loss and dimpling at the site (snf). The left breast is firmer due to radiation. The skin, nipples and areolas appear normal bilaterally. There is no nipple retraction. No nipple discharge can be elicited. The parenchyma is mildly nodular. There are no dominant masses in either breast. The axillary tails are normal. Lymphatics: There is no suspicious cervical, supraclavicular, or axillary lymphadenopathy. Well healed left axillary incision. No lymphedema. Skin: Skin is warm and dry. Flush, pallor and rash absent. There are no other suspicious cutaneous lesions. Studies: MAMMO SCREENING WITH BLAS BILATERAL, 10/17/2022 10:04 AM CLINICAL INDICATIONS: Patient has a history of a left lumpectomy COMPARISON: Comparison was made with the study of October 04, 2021, September 28, 2020 TECHNIQUE: 2-D MLO and CC views were obtained of the bilateral breasts. 3-D MLO and CC digital tomosynthesis images were also acquired. Computer aided detection was utilized. FINDINGS: The breasts have scattered areas of fibroglandular density. Bilateral benign appearing calcifications are noted. There are post left lumpectomy changes noted stable since the prior examination There are no suspicious masses, calcifications, or architectural distortions. IMPRESSION IMPRESSION: No mammographic evidence of malignancy. BI-RADS: 2: Benign Recommendation: Routine mammography. Recommendation Laterality: Bilateral Assessment and Plan: Reg Dorsey is a 77 y.o. 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 She is doing well. Clinical exam without evidence of recurrence. Imaging today is benign, bi-rads 2. She will call with any new concerns or questions. I will plan to see her back in 1 year with imaging. JANET Sales 10/17/2022 Patient offered a medical combat systems operator mine warfare for sensitive exam. Patient denies need for medical combat systems operator mine warfare. documented in this encounter [facility] 09-20-2022 Note HNO ID: [id number] Author: RT Elly(R) Service: Nuclear Medicine Author Type: Technologist Type: Progress Notes Filed: 09/20/2022 1:34 PM Note Text: Radiology Service Progress Note PATIENT NAME: Reg Dorsey DATE OF SERVICE: September 20, 2022 TIME: 1:18 PM PATIENT IDENTITY VERIFICATION COMPLETED USING TWO (2) IDENTIFIERS: Name and Date of confirmed by patient verbally. FALL SCREENING: Has the patient had 2 falls in the last year or 1 fall with injury or currently using an Ambulatory Assistive Device (Walker, Cane, Wheelchair, Crutches, etc.)? No PATIENT GENDER DATA: Female. status: : No status: NO. PATIENT RELEVANT IMPLANT DATA REVIEWED: Not Applicable RADIOLOGY DEPARTMENT: General X-ray: Exam(s) Completed: Lower Extremity X-Ray(s): Knee, AP / Lat / Tunne / Merchant Bilateral and Wt. Bearing PERIPHERAL IV DATA: Not applicable SIGNED BY: RT Elly(R) September 20, 2022 1:18 PM [facility] 07-19-2022 History of Present illness Narrative Reg Dorsey is a 77 y.o. White female who presents to the [facility] for evaluation of skin by Dr. Gomez. Primary Care Provider: Isra Alfaro Chief Complaint Patient presents with New Patient Pt had melanoma tape test that was positive on her left cheek from [facility] in [facility] on 06/13/22. No history of skin cancer. She does have a history of breast cancer. Reason for Visit: Reg Dorsey is being seen for skin check. derm Allergies Allergen Reactions *Seasonal Bee Venom Swelling Other Shortness of Breath Hairy animals, molds Current Outpatient Medications Medication Sig ALBUTEROL IN take by inhalation as needed.. Reported on 07/11/2016 atorvastatin 20 MG tablet Take 1 tablet by mouth daily. calcium acetate 667 MG Cap Take 1 capsule by mouth 3 times daily with meals. lisinopril 10 MG Tab tablet Mometasone Furo-Formoterol Fum (DULERA IN) take by inhalation.. Multiple Vitamin (MULTIVITAMIN) Cap Take 1 capsule by mouth daily. naproxen 375 MG tablet Take 1 tablet by mouth 2 times daily with meals. (second line - NSAID for pain/swelling) acetaminophen 500 MG tablet Take 2 tablets by mouth every 8 hours for 14 days. (first line pain) aspirin EC [address] Take 1 tablet by mouth every 12 hours for 14 days. (blood clot prevention) oxyCODONE 5 MG tablet Take 1 tablet by mouth every 4 hours as needed for Severe Pain for up to 2 days. (narcotic - pain) Past Medical History: Diagnosis Date Asthma Breast cancer 1999 left; 1.9cm History of chemotherapy 1999 4 cycles of Adriamycin & Cytoxan History of radiation therapy 1999 Left breast PE (pulmonary embolism) 2006 Renal calculi 11/16 left; had lithotripsy Thyroid nodule 1967 Past Surgical History: Procedure Laterality Date ARTHRODESIS INTERPHALANGEAL JOINT Right 11/26/2020 Laterality: Right; Surgeon: Kiran Cevallos MD; Location: [facility] OSC PERIOP HIP REPLACEMENT Right 2018 KNEE REPLACEMENT Right 07/2016 KNEE REPLACEMENT Left 07/2015 ARTHRODESIS METATARSOPHALANGEAL JOINT Left 09/14/2014 Laterality: Left; Surgeon: Ruddy Mix MD; [facility] CORRECTION [place] Left 09/14/2014 Laterality: Left; Surgeon: Ruddy Mix MD; Location: [facility] MAIN OR SKIN BIOPSY Right 06/2014 cheek LITHOTRIPSY 11/16 left renal calculi FOOT SURGERY October 17, 2006 BREAST LUMPECTOMY Left 07/10/1999 IDC reexcision for pos margins BX LYMPH NODE Left 06/27/1999 BREAST LUMPECTOMY Left 06/27/1999 IDC CORE BIOPSY OF THE BREAST Left 1999 IDC THYROID SURGERY 1968 thyroid nodule removed OTHER SURGICAL bladder sling Family History Problem Relation Age of Onset Heart Failure Mother Hypertension Mother Myocardial Infarction Brother Uterine Cancer Maternal Aunt Cancer- Other Paternal Grandmother pancreatic cancer Diabetes Paternal Uncle Dysrhythmia Son Diabetes Other Aneurysm Neg Hx Bleeding or Clotting Problems Neg Hx Stroke Neg Hx Heart Disease - Other Neg Hx Breast Cancer Neg Hx Ovarian Cancer Neg Hx Social History Tobacco Use Smoking status: Never Smokeless tobacco: Never Substance Use Topics Alcohol use: Yes Alcohol/week: 0.0 standard drinks Types: 1 - 2 Standard drinks or equivalent per week Drug use: No The patient presents today for skin examination including skin cancer surveillance. Patient's past medical, family, social history and ROS were reviewed and I agree. Prior history of: Pt had a positive melanoma tape test to her left central malar cheek at [facility] in [facility]. Pt reports she did have a fall in 03/2022 that bruised her eye. Since this, she reports that the dark lesion to her left cheek has remained darker. See scanned test results. No personal or family history of melanoma. She has previously had some skin biopsies and cryosurgeries incl facial Skin exam: Patient is well-developed, well-nourished, in no acute distress, alert and oriented X 3, affect and speech are within normal. An inspection exam was done of the face, ears, neck, upper chest The above skin exam was within normal limits except as noted below. more kers on the upper chest and right hindu which we discussed as benign and she could seek cosmetic treatment for these Lesions of concern today: Left central malar cheek with 1.7 by 2.5 cm area of color change from normal including a white area (biopsy B) a brown area (biopsy A) and a pink area medially. Left nasal side wall with actinic keratosis. Treated with cryotherapy. 6 mm Chest with raised benign keratosis. Biopsie(s): Left central malar cheek AK Cryosurgery: Left nasal side wall Follow-up: per path Patient counseled on skin self-exam and sun protection. I have reviewed the visit documentation as scribed by the nurse above and it accurately reflects the work performed and the decisions made. I saw and independently examined this patient today. I discussed my findings and the therapeutic plan with the patient. I agree with the history, physical examination, and medical decisions as outlined. I have reviewed the documentation, which accurately reflects the work performed and the decisions made. The nurse scribe was present also as combat systems operator mine warfare. Evaluation, management, documentation done --- My total time on this date and for this encounter was 35 minutes which included the following activities: preparing to see the patient, performing a medically appropriate examination, counseling and educating, ordering medications, tests, or procedures, referring to and communicating with other health hourly caregiver about management, and documenting clinical information in the electronic or another health record. This time is independent and non-overlapping. Renée Gomez M.D. 2.5 ml of 1% Lidocaine with Epinephrine 1:100,000 given by doctor/physician assistant professor of anthropology/nurse at the treatment sites. Pain scale post procedure: none documented in this encounter [facility] 07-19-2022 Instructions Lily Patterson RN - 07/19/2022 2:35 PM EDT I am your primary nurse, HERI Gustafson, BSN. Please call if you have any questions or concerns I can help address, or you may speak to any member of the Dermatology/Mohs team. [phone]. Skin Cancer Prevention 1. Every day, apply a broad spectrum sunscreen SPF 30 with reapplication every 2 hours when out in the sun for extended periods of time. 2. Wear protective clothing when out in the sun during sun exposure. Examples include broad-rimmed hats, long sleeved shirts, or pants. You can also purchase clothing with built in sun protection called UPF or ultraviolet protection factor. Many sports store sell clothing with this built in. Some popular brands carry a UPF line like [employer] [place] or [employer]. You can also purchase clothing from companies such as [employer] and [employer] which sell a variety of clothing with built in UPF. Recommended by the Skin Cancer Foundation, Sun Guard laundry additive, adds a UPF to your clothes that lasts for about 20 washings. You can find Sun Guard at www.sunguardsunprotection.com. 3. Wear protective sunglasses while out in the sun. Purchase glasses which that block 99 to 100 percent of both UVA and UVB rays. Avoid sunglasses that are labeled cosmetic and those that don't offer details on UV protection. 4. Perform monthly self-skin exams. Observe for any new lesions or moles. Watch for changes in color, shape and size. Use the handy reminder of the ABCDEs. Look for lesions with: -Asymmetry. The left side looks different than the right. The top is different from the bottom. -Borders. The borders are irregular or resemble a fluffy cloud or a puzzle piece. -Color. The mole has variation of colors including ponce, brown, black, blue, red, pink And white. -Diameter. The mole is increasing in size or bigger than 6 mm (approx size of a pencil eraser) -Evolving. If any of your moles are changing in size, shape or color 5. If you have a history of melanoma, also examine the glands in your neck, armpits and groin. Your molded candles wicker or oncologist with assist you with identifying the correct areas to examine. 6. Consider taking Vitamin D 3 supplementation of 1000 IU if practicing strict photoprotection. 7. If you have a personal or family history of melanoma, we recommend first degree relatives (your parents, your brothers and sisters and your children) receive a full skin exam by a molded candles wicker. Wound Care after a Punch Skin Biopsy Recent Studies show wounds heal faster when scabs are NOT allowed to form.This will help your wounds to heal better. 1. Leave the original dressing in place for 24 hours. 2. Remove the old dressing before you take a bath. 3. CLEAN WOUND ONCE A DAY FOLLOWS: ____Allow water, shampoo and soap from shower to wash over the wound for 2 minutes. Then rinse with tap water. 4. Dry the wound with clean cotton-tipped swab (Q-tip) or gauze. 5. Use a clean cotton-tipped and apply a thick layer of ointment or Vaseline. 6. Cover the wound with a bandage. For example use a band aid or Telfa pad and tape. If you prefer not to use a band-aid and want to leave the wound open to the air, apply antibiotic ointment frequently. Keep the wound covered with ointment or Vaseline at all times. 7. Use Acetaminophen (Tylenol) if you have discomfort. If you are not able to take Tylenol, ask your doctor what medicine to take for pain. Report any of these symptoms to your physician: Increase in redness Swelling Increases or severe pain Drainage of pus Fever over 100.5 degrees If bleeding occurs which will not stop apply firm pressure for 20 minutes Who to call [facility] at for problems Sunday through Sunday in the morning or afternoon. For Urgent problems in the evenings or after hours , call the hospital time cycle operator at and ask for the Gravity Prospecting Observer Helper sap solution manager consultant. If you have not Received a report of your skin biopsy , please call our office at Cryosurgery Skin Wound Care Cryosurgery refers to surgery that uses liquid nitrogen to rapidly cause of some tissue. The liquid nitrogen is applied to the skin lesion at about minus 300 degrees Farenheit. Lesions treated by cryosurgery include actinic keratosis, seborrheic keratosis and warts. What to Expect Expect to feel the cold, then stinging or burning pain when the liquid nitrogen is applied. The pain is usually not severe. Pain medicine is rarely needed. After Cryosurgery Expect to have a throbbing sensation in the treated area that may last from a few minutes to several hours. The depth and intensity of the freezing affects how long this lasts. The area may hurt worse a few minutes after it thaws. The site will first appear red. Later the area will swell. Blistering may develop within a few hours. The fluid in the blister may be look clear or bloody. This blister will change to a scab in a few days. The scab will peel off on own in about one week. Gradually the scab will separate at the edges and clear fluid may escape underneath.This type of wound will usually take 2 to 4 weeks To heal completely. It takes longer to heal if the area is deep or large. The skin will feel tight and drawn while it is healing. After the scab comes off, the treated area will not be able to form normal pigment for a long time. The pigment usually will not return completely. A satisfactory blending of color usually takes place over time. Be sure to always protect this area from sunburn. Tylenol or Extra-Strength Tylenol may be taken every 3 to 4 hours for discomfort. If you are not able to take Tylenol, please talk to the doctor or nurse about what you may take. How to care for the Treated area 1. Keep the area open to the air for the first 24 hours. Afterwards, a non-stick bandage (bandaid) can be applied if the appearance is bothersome. This is optional. 2. Gently wash the area with soap and water after 12 to 24. Keep the area clean. 3. DO NOT apply any lotions, creams or make-up to the area until it is completely healed. 4. When a blister breaks, clean the area with antibacterial soap and tap water twice daily. Apply a small dab of Vaseline and then a bandage (band-aid). 5. A painful, tense blister may be safely broken in the following way : Puncture the side of the blister with a small sterile needle. Squeeze out the fluid contents. Leave the blister roof intact. Follow the directions in step # 4 Call your Doctor at [phone] if you have: Increased pain in or around the wound Change in color or odor of drainage Change in the amount of drainage A wound that gets larger Redness or increased warmth in tissues around the wound Red streaks on the skin near the wound For Urgent problems: Between the hours of 8:00 am to 5:00pm, call [phone] After 5:00pm or on weekends, call the hospital time cycle operator at and ask for the molded candles wicker sap solution manager consultant. The following attachments cannot be sent through Care Everywhere.Actinic Keratosis (Cymraes)documented in this encounter [facility] 07-19-2022 Procedure note Associated Ord er(s): GENERAL PROCEDURE Skin Biopsy procedure during office encounter: Site or sites: (size) Left central malar cheek A upper B lower Both were 3 mm punch biopsies Each had one 5-0 proline suture placed and removal in one week, kit given to pt Method: punch (scalpel, punch, both) Diagnosis: neoplasm of uncertain behavior of skin (pre- and post- operative) Discussion with patient about why biopsy is recommended, indication is diagnosis. Time for patient questions was given. Patient signed informed consent for the procedure. The skin was cleaned aseptically and local infiltration anesthesia was given. Hemostasis using aluminum chloride solution for scalpel biopsy or suture(s) placed for punch biopsy. Aseptic dressing applied and wound care teaching done. [facility] Procedure note Associated Ord er(s): GENERAL PROCEDURE Skin Biopsy procedure during office encounter: Site or sites: (size) Left central malar cheek A upper B lower Both were 3 mm punch biopsies Each had one 5-0 proline suture placed and removal in one week, kit given to pt Method: punch (scalpel, punch, both) Diagnosis: neoplasm of uncertain behavior of skin (pre- and post- operative) Discussion with patient about why biopsy is recommended, indication is diagnosis. Time for patient questions was given. Patient signed informed consent for the procedure. The skin was cleaned aseptically and local infiltration anesthesia was given. Hemostasis using aluminum chloride solution for scalpel biopsy or suture(s) placed for punch biopsy. Aseptic dressing applied and wound care teaching done. documented in this encounter [facility] 07-05-2022 Note HNO ID: [id number] Author: Mildred Cervantes II, OD Service: ? Author Type: PESTICIDE APPLICATOR Type: Progress Notes Filed: 07/05/2022 10:22 AM Note Text: Assessment and Plan H52.13 Myopia, bilateral (primary encounter diagnosis) H52.4 Presbyopia Comment: Ocular health maintained with contact lens use. Good fit. Monovision souza stable. Recheck in one year. 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 Patient tolerates for now. Monitor yearly or sooner if needed. I have confirmed and edited as necessary the relevant ophthalmic history, ROS, and the neuro exam findings as obtained by others. I have seen and examined Reg Dorsey. I have discussed the case and the management of this patient's care with the Resident/Fellow, if applicable. I also have reviewed and agree with the assessment and plan as stated above and agree with all of its relevant components. Mildred Cervantes II, OD [facility] 03-29-2023 Instructions Mildred Cervantes II OD - 07/05/2022 10:21 AM EDT Assessment and Plan H52.13 Myopia, bilateral (primary encounter diagnosis) H52.4 Presbyopia Comment: Ocular health maintained with contact lens use. Good fit. Monovision souza stable. Recheck in one year. 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 Patient tolerates for now. Monitor yearly or sooner if needed. I have confirmed and edited as necessary the relevant ophthalmic history, ROS, and the neuro exam findings as obtained by others. I have seen and examined Reg Dorsey. I have discussed the case and the management of this patient's care with the Resident/Fellow, if applicable. I also have reviewed and agree with the assessment and plan as stated above and agree with all of its relevant components. Mildred Cervantes II, OD documented in this encounter [facility] 07-05-2022 History of Present illness Narrative Assessment and Plan H52.13 Myopia, bilateral (primary encounter diagnosis) H52.4 Presbyopia Comment: Ocular health maintained with contact lens use. Good fit. Monovision souza stable. Recheck in one year. 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 Patient tolerates for now. Monitor yearly or sooner if needed. I have confirmed and edited as necessary the relevant ophthalmic history, ROS, and the neuro exam findings as obtained by others. I have seen and examined Reg Dorsey. I have discussed the case and the management of this patient's care with the Resident/Fellow, if applicable. I also have reviewed and agree with the assessment and plan as stated above and agree with all of its relevant components. Mildred Cervantes II, OD documented in this encounter [facility] 02-07-2022 Influenza virus A and B RNA and SARS-CoV-2 (COVID-19) N gene panel FABIEN+probe (Resp) COVID 19 RESULT: SARS-CoV-2 (Agent of COVID-19) Not Detected by RT-PCR or equivalent method. bird [id number] (ISABELLE)_EUA This test was developed and its performance characteristics determined by [facility]'s [facility] [place]. This test has been authorized by FDA under an Emergency Use Authorization (EUA). This test has been validated in accordance with the FDA's Guidance Document Policy for Diagnostics Testing in Laboratories Certified to Perform High Complexity Testing under CLIA prior to Emergency use Authorization for Coronavirus Disease 2019 during the Public Health Emergency issued on June 07, 2019. Test performed by [facility], [facility] [place], [address] [place] [address]. INFLUENZA A PCR: Negative for Influenza A by RT-PCR INFLUENZA B PCR: Negative for Influenza B by RT-PCR [facility] documented as of this encounter (statuses as of 09/06/2021) [facility] History of Past illness Narrative* Problem Noted Date Resolved Date Vitreous hemorrhage of left eye 06/06/2018 06/10/2018 Acute atopic conjunctivitis, bilateral 6 08/18/2016 Regular astigmatism of right eye 10/25/2015 08/18/2016 Foreign body in conjunctival sac 04/15/2015 08/18/2016 Amaurosis fugax 04/15/2015 08/18/2016 Other acquired deformity of toe 06/15/2014 08/18/2016 Myopia 04/22/2014 08/18/2016 Presbyopia 04/22/2014 08/18/2016 Other vitreous opacities 04/22/2014 017 Actinic skin damage 10/25/2013 08/18/2016 Milial cysts 10/25/2013 08/18/2016 Sebaceous hyperplasia 10/25/2013 08/18/2016 Seborrheic Keratoses 10/25/2013 08/18/2016 Contact dermatitis due to plant 09/02/2012 08/18/2016 Tick bite of back 09/02/2012 08/18/2016 Insect bite of trunk 09/02/2012 08/18/2016 Pyoderma, unspecified 09/02/2012 08/18/2016 Claw toe, acquired 08/11/2012 08/18/2016 Solar lentigo 07/10/2010 08/18/2016 Moniliasis skin 05/10/2010 08/18/2016 Perioral dermatitis 05/10/2010 08/18/2016 Cheilitis 03/15/2010 08/18/2016 Angular cheilitis 03/15/2010 08/18/2016 Eczematous dermatitis 03/15/2010 08/18/2016 Xerosis cutis 03/15/2010 08/18/2016 Viral warts, unspecified 10/29/2008 014 SKIN TAG PAPILLOMA///SKIN HYPERTRO/ATROPH NOS 10/25/2013 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 10/25/2013 Inflamed seborrheic keratosis 07/01/2008 CONTACT///COSMETIC DERMATITIS 11/04/2007 Other seborrheic dermatitis 08/23/200710/07 Contact dermatitis and other eczema due to other specified agent 08/23/2007 10/25/2013 DTFB///BENIGN DEYANIRA SKIN ARM 08/23/200710/25 Other psoriasis 02/20/2006 10/25/2013 Contact dermatitis and other eczema, due to unspecified cause 02/20/2006 10/25/2013 Unspecified pruritic disorder 02/20/2006 XEROSIS///SEBACEOUS GLAND DIS NEC 02/20/2006 10/25/2013 Other atopic dermatitis and related conditions 1 04/22/2005 10/25/2013 ACTINIC DAMAGE//CHR SOLAR SKIN DAMAGE NOS 200510/25/2013 Actinic keratosis 02/20/2006 10/25/2013 SOLAR LENTIGINES////DYSCHROMIA OTHER 02/20/2006 10/25/2013 Other seborrheic keratosis 02/20/200610/25 Hallux valgus (acquired) 10/05/2005 017 documented as of this encounter (statuses as of 09/06/2021) [facility] History of Past illness Narrative* Problem Noted Date Resolved Date Vitreous hemorrhage of left eye 06/06/2018 06/10/2018 Acute atopic conjunctivitis, bilateral 6 08/18/2016 Regular astigmatism of right eye 10/25/2015 08/18/2016 Foreign body in conjunctival sac 04/15/2015 08/18/2016 Amaurosis fugax 04/15/2015 08/18/2016 Other acquired deformity of toe 06/15/2014 08/18/2016 Myopia 04/22/2014 08/18/2016 Presbyopia 04/22/2014 08/18/2016 Other vitreous opacities 04/22/2014 017 Actinic skin damage 10/25/2013 08/18/2016 Milial cysts 10/25/2013 08/18/2016 Sebaceous hyperplasia 10/25/2013 08/18/2016 Seborrheic Keratoses 10/25/2013 08/18/2016 Contact dermatitis due to plant 09/02/2012 08/18/2016 Tick bite of back 09/02/2012 08/18/2016 Insect bite of trunk 09/02/2012 08/18/2016 Pyoderma, unspecified 09/02/2012 08/18/2016 Claw toe, acquired 08/11/2012 08/18/2016 Solar lentigo 07/10/2010 08/18/2016 Moniliasis skin 05/10/2010 08/18/2016 Perioral dermatitis 05/10/2010 08/18/2016 Cheilitis 03/15/2010 08/18/2016 Angular cheilitis 03/15/2010 08/18/2016 Eczematous dermatitis 03/15/2010 08/18/2016 Xerosis cutis 03/15/2010 08/18/2016 Viral warts, unspecified 10/29/2008 014 SKIN TAG PAPILLOMA///SKIN HYPERTRO/ATROPH NOS 10/25/2013 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 10/25/2013 Inflamed seborrheic keratosis 07/01/2008 CONTACT///COSMETIC DERMATITIS 11/04/2007 Other seborrheic dermatitis 08/23/200710/07 Contact dermatitis and other eczema due to other specified agent 08/23/2007 10/25/2013 DTFB///BENIGN DEYANIRA SKIN ARM 08/23/200710/25 Other psoriasis 02/20/2006 10/25/2013 Contact dermatitis and other eczema, due to unspecified cause 02/20/2006 10/25/2013 Unspecified pruritic disorder 02/20/2006 XEROSIS///SEBACEOUS GLAND DIS NEC 02/20/2006 10/25/2013 Other atopic dermatitis and related conditions 1 04/22/2005 10/25/2013 ACTINIC DAMAGE//CHR SOLAR SKIN DAMAGE NOS 200510/25/2013 Actinic keratosis 02/20/2006 10/25/2013 SOLAR LENTIGINES////DYSCHROMIA OTHER 02/20/2006 10/25/2013 Other seborrheic keratosis 02/20/200610/25 Hallux valgus (acquired) 10/05/2005 017 documented as of this encounter (statuses as of 02/07/2022) [facility] History of Past illness Narrative* Problem Noted Date Resolved Date Vitreous hemorrhage of left eye 06/06/2018 06/10/2018 Acute atopic conjunctivitis, bilateral 6 08/18/2016 Regular astigmatism of right eye 10/25/2015 08/18/2016 Foreign body in conjunctival sac 04/15/2015 08/18/2016 Amaurosis fugax 04/15/2015 08/18/2016 Other acquired deformity of toe 06/15/2014 08/18/2016 Myopia 04/22/2014 08/18/2016 Presbyopia 04/22/2014 08/18/2016 Other vitreous opacities 04/22/2014 017 Actinic skin damage 10/25/2013 08/18/2016 Milial cysts 10/25/2013 08/18/2016 Sebaceous hyperplasia 10/25/2013 08/18/2016 Seborrheic Keratoses 10/25/2013 08/18/2016 Contact dermatitis due to plant 09/02/2012 08/18/2016 Tick bite of back 09/02/2012 08/18/2016 Insect bite of trunk 09/02/2012 08/18/2016 Pyoderma, unspecified 09/02/2012 08/18/2016 Claw toe, acquired 08/11/2012 08/18/2016 Solar lentigo 07/10/2010 08/18/2016 Moniliasis skin 05/10/2010 08/18/2016 Perioral dermatitis 05/10/2010 08/18/2016 Cheilitis 03/15/2010 08/18/2016 Angular cheilitis 03/15/2010 08/18/2016 Eczematous dermatitis 03/15/2010 08/18/2016 Xerosis cutis 03/15/2010 08/18/2016 Viral warts, unspecified 10/29/2008 014 SKIN TAG PAPILLOMA///SKIN HYPERTRO/ATROPH NOS 10/25/2013 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 10/25/2013 Inflamed seborrheic keratosis 07/01/2008 CONTACT///COSMETIC DERMATITIS 11/04/2007 Other seborrheic dermatitis 08/23/200710/07 Contact dermatitis and other eczema due to other specified agent 08/23/2007 10/25/2013 DTFB///BENIGN DEYANIRA SKIN ARM 08/23/200710/25 Other psoriasis 02/20/2006 10/25/2013 Contact dermatitis and other eczema, due to unspecified cause 02/20/2006 10/25/2013 Unspecified pruritic disorder 02/20/2006 XEROSIS///SEBACEOUS GLAND DIS NEC 02/20/2006 10/25/2013 Other atopic dermatitis and related conditions 1 04/22/2005 10/25/2013 ACTINIC DAMAGE//CHR SOLAR SKIN DAMAGE NOS 200510/25/2013 Actinic keratosis 02/20/2006 10/25/2013 SOLAR LENTIGINES////DYSCHROMIA OTHER 02/20/2006 10/25/2013 Other seborrheic keratosis 02/20/200610/25 Hallux valgus (acquired) 10/05/2005 017 documented as of this encounter (statuses as of 04/19/2022) [facility] History of Past illness Narrative* Problem Noted Date Resolved Date Vitreous hemorrhage of left eye 06/06/2018 06/10/2018 Acute atopic conjunctivitis, bilateral 6 08/18/2016 Regular astigmatism of right eye 10/25/2015 08/18/2016 Foreign body in conjunctival sac 04/15/2015 08/18/2016 Amaurosis fugax 04/15/2015 08/18/2016 Other acquired deformity of toe 06/15/2014 08/18/2016 Myopia 04/22/2014 08/18/2016 Presbyopia 04/22/2014 08/18/2016 Other vitreous opacities 04/22/2014 017 Actinic skin damage 10/25/2013 08/18/2016 Milial cysts 10/25/2013 08/18/2016 Sebaceous hyperplasia 10/25/2013 08/18/2016 Seborrheic Keratoses 10/25/2013 08/18/2016 Contact dermatitis due to plant 09/02/2012 08/18/2016 Tick bite of back 09/02/2012 08/18/2016 Insect bite of trunk 09/02/2012 08/18/2016 Pyoderma, unspecified 09/02/2012 08/18/2016 Claw toe, acquired 08/11/2012 08/18/2016 Solar lentigo 07/10/2010 08/18/2016 Moniliasis skin 05/10/2010 08/18/2016 Perioral dermatitis 05/10/2010 08/18/2016 Cheilitis 03/15/2010 08/18/2016 Angular cheilitis 03/15/2010 08/18/2016 Eczematous dermatitis 03/15/2010 08/18/2016 Xerosis cutis 03/15/2010 08/18/2016 Viral warts, unspecified 10/29/2008 014 SKIN TAG PAPILLOMA///SKIN HYPERTRO/ATROPH NOS 10/25/2013 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 10/25/2013 Inflamed seborrheic keratosis 07/01/2008 CONTACT///COSMETIC DERMATITIS 11/04/2007 Other seborrheic dermatitis 08/23/200710/07 Contact dermatitis and other eczema due to other specified agent 08/23/2007 10/25/2013 DTFB///BENIGN DEYANIRA SKIN ARM 08/23/200710/25 Other psoriasis 02/20/2006 10/25/2013 Contact dermatitis and other eczema, due to unspecified cause 02/20/2006 10/25/2013 Unspecified pruritic disorder 02/20/2006 XEROSIS///SEBACEOUS GLAND DIS NEC 02/20/2006 10/25/2013 Other atopic dermatitis and related conditions 1 04/22/2005 10/25/2013 ACTINIC DAMAGE//CHR SOLAR SKIN DAMAGE NOS 200510/25/2013 Actinic keratosis 02/20/2006 10/25/2013 SOLAR LENTIGINES////DYSCHROMIA OTHER 02/20/2006 10/25/2013 Other seborrheic keratosis 02/20/200610/25 Hallux valgus (acquired) 10/05/2005 017 documented as of this encounter (statuses as of 07/05/2022) [facility] History of Past illness Narrative* Problem Noted Date Resolved Date Vitreous hemorrhage of left eye 06/06/2018 06/10/2018 Acute atopic conjunctivitis, bilateral 6 08/18/2016 Regular astigmatism of right eye 10/25/2015 08/18/2016 Foreign body in conjunctival sac 04/15/2015 08/18/2016 Amaurosis fugax 04/15/2015 08/18/2016 Other acquired deformity of toe 06/15/2014 08/18/2016 Myopia 04/22/2014 08/18/2016 Presbyopia 04/22/2014 08/18/2016 Other vitreous opacities 04/22/2014 017 Actinic skin damage 10/25/2013 08/18/2016 Milial cysts 10/25/2013 08/18/2016 Sebaceous hyperplasia 10/25/2013 08/18/2016 Seborrheic Keratoses 10/25/2013 08/18/2016 Contact dermatitis due to plant 09/02/2012 08/18/2016 Tick bite of back 09/02/2012 08/18/2016 Insect bite of trunk 09/02/2012 08/18/2016 Pyoderma, unspecified 09/02/2012 08/18/2016 Claw toe, acquired 08/11/2012 08/18/2016 Solar lentigo 07/10/2010 08/18/2016 Moniliasis skin 05/10/2010 08/18/2016 Perioral dermatitis 05/10/2010 08/18/2016 Cheilitis 03/15/2010 08/18/2016 Angular cheilitis 03/15/2010 08/18/2016 Eczematous dermatitis 03/15/2010 08/18/2016 Xerosis cutis 03/15/2010 08/18/2016 Viral warts, unspecified 10/29/2008 014 SKIN TAG PAPILLOMA///SKIN HYPERTRO/ATROPH NOS 10/25/2013 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 10/25/2013 Inflamed seborrheic keratosis 07/01/2008 CONTACT///COSMETIC DERMATITIS 11/04/2007 Other seborrheic dermatitis 08/23/200710/07 Contact dermatitis and other eczema due to other specified agent 08/23/2007 10/25/2013 DTFB///BENIGN DEYANIRA SKIN ARM 08/23/200710/25 Other psoriasis 02/20/2006 10/25/2013 Contact dermatitis and other eczema, due to unspecified cause 02/20/2006 10/25/2013 Unspecified pruritic disorder 02/20/2006 XEROSIS///SEBACEOUS GLAND DIS NEC 02/20/2006 10/25/2013 Other atopic dermatitis and related conditions 1 04/22/2005 10/25/2013 ACTINIC DAMAGE//CHR SOLAR SKIN DAMAGE NOS 200510/25/2013 Actinic keratosis 02/20/2006 10/25/2013 SOLAR LENTIGINES////DYSCHROMIA OTHER 02/20/2006 10/25/2013 Other seborrheic keratosis 02/20/200610/25 Hallux valgus (acquired) 10/05/2005 017 documented as of this encounter (statuses as of 08/02/2022) [facility] History of Past illness Narrative* Problem Noted Date Resolved Date Vitreous hemorrhage of left eye 06/06/2018 06/10/2018 Acute atopic conjunctivitis, bilateral 6 08/18/2016 Regular astigmatism of right eye 10/25/2015 08/18/2016 Foreign body in conjunctival sac 04/15/2015 08/18/2016 Amaurosis fugax 04/15/2015 08/18/2016 Other acquired deformity of toe 06/15/2014 08/18/2016 Myopia 04/22/2014 08/18/2016 Presbyopia 04/22/2014 08/18/2016 Other vitreous opacities 04/22/2014 017 Actinic skin damage 10/25/2013 08/18/2016 Milial cysts 10/25/2013 08/18/2016 Sebaceous hyperplasia 10/25/2013 08/18/2016 Seborrheic Keratoses 10/25/2013 08/18/2016 Contact dermatitis due to plant 09/02/2012 08/18/2016 Tick bite of back 09/02/2012 08/18/2016 Insect bite of trunk 09/02/2012 08/18/2016 Pyoderma, unspecified 09/02/2012 08/18/2016 Claw toe, acquired 08/11/2012 08/18/2016 Solar lentigo 07/10/2010 08/18/2016 Moniliasis skin 05/10/2010 08/18/2016 Perioral dermatitis 05/10/2010 08/18/2016 Cheilitis 03/15/2010 08/18/2016 Angular cheilitis 03/15/2010 08/18/2016 Eczematous dermatitis 03/15/2010 08/18/2016 Xerosis cutis 03/15/2010 08/18/2016 Viral warts, unspecified 10/29/2008 014 SKIN TAG PAPILLOMA///SKIN HYPERTRO/ATROPH NOS 10/25/2013 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 10/25/2013 Inflamed seborrheic keratosis 07/01/2008 CONTACT///COSMETIC DERMATITIS 11/04/2007 Other seborrheic dermatitis 08/23/200710/07 Contact dermatitis and other eczema due to other specified agent 08/23/2007 10/25/2013 DTFB///BENIGN DEYANIRA SKIN ARM 08/23/200710/25 Other psoriasis 02/20/2006 10/25/2013 Contact dermatitis and other eczema, due to unspecified cause 02/20/2006 10/25/2013 Unspecified pruritic disorder 02/20/2006 XEROSIS///SEBACEOUS GLAND DIS NEC 02/20/2006 10/25/2013 Other atopic dermatitis and related conditions 1 04/22/2005 10/25/2013 ACTINIC DAMAGE//CHR SOLAR SKIN DAMAGE NOS 200510/25/2013 Actinic keratosis 02/20/2006 10/25/2013 SOLAR LENTIGINES////DYSCHROMIA OTHER 02/20/2006 10/25/2013 Other seborrheic keratosis 02/20/200610/25 Hallux valgus (acquired) 10/05/2005 017 documented as of this encounter (statuses as of 08/15/2022) [facility] History of Past illness Narrative* Problem Noted Date Diagnosed Date Resolved Date Vitreous hemorrhage of left eye 06/06/2018 06/10/2018 Acute atopic conjunctivitis, bilateral 03/31/2016 08/18/2016 Regular astigmatism of right eye 10/25/2015 08/18/2016 Foreign body in conjunctival sac 04/15/2015 08/18/2016 Amaurosis fugax 04/15/2015 08/18/2016 Other acquired deformity of toe 06/15/2014 08/18/2016 Myopia 04/22/2014 08/18/2016 Presbyopia 04/22/2014 08/18/2016 Other vitreous opacities 04/22/201403/2017 Actinic skin damage 10/25/2013 08/19/19 17 Milial cysts 10/25/2013 08/18/2016 Sebaceous hyperplasia 10/25/20132016 Seborrheic Keratoses 10/25/2013 017 Contact dermatitis due to plant 09/02/2012 08/18/2016 Tick bite of back 09/02/2012 08/18/2016 Insect bite of trunk 09/02/2012 017 Pyoderma, unspecified 09/02/20122016 Claw toe, acquired 08/11/2012 7 Solar lentigo 07/10/2010 08/18/2016 Moniliasis skin 05/10/2010 08/18/2016 Perioral dermatitis 05/10/2010 08/19/19 17 Cheilitis 03/15/2010 08/18/2016 Angular cheilitis 03/15/2010 08/18/2016 Eczematous dermatitis 03/15/20102016 Xerosis cutis 03/15/2010 08/18/2016 Viral warts, unspecified 10/29/2008 SKIN TAG PAPILLOMA///SKIN HYPERTRO/ATROPH NOS 09/18/19 09 10/25/2013 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 014 Inflamed seborrheic keratosis 07/01/2008 10/25/2013 CONTACT///COSMETIC DERMATITIS 11/04/2007 10/25/2013 Other seborrheic dermatitis 08/23/2007 10/25/2013 Contact dermatitis and other eczema due to other specified agent 08/23/2007 10/25/2013 DTFB///BENIGN DEYANIRA SKIN ARM 08/23/2007 0 10/25/2013 Other psoriasis 02/20/2006 10/25/2013 Contact dermatitis and other eczema, due to unspecified cause 02/20/2006 10/25/2013 Unspecified pruritic disorder 02/20/2006 10/25/2013 XEROSIS///SEBACEOUS GLAND DIS NEC 02/20/2006 10/25/2013 Other atopic dermatitis and related conditions 02/20/2006 10/25/2013 ACTINIC DAMAGE//CHR SOLAR SKIN DAMAGE NOS 02/20/2006 10/25/2013 Actinic keratosis 02/20/2006 10/25/2013 SOLAR LENTIGINES////DYSCHROMIA OTHER 02/20/2006 10/25/2013 Other seborrheic keratosis 02/20/2006 0 10/25/2013 Hallux valgus (acquired) 10/05/200503/2017 documented as of this encounter (statuses as of 10/18/2022) [facility] History of Past illness Narrative* Problem Noted Date Diagnosed Date Resolved Date Vitreous hemorrhage of left eye 06/06/2018 06/10/2018 Acute atopic conjunctivitis, bilateral 03/31/2016 08/18/2016 Regular astigmatism of right eye 10/25/2015 08/18/2016 Foreign body in conjunctival sac 04/15/2015 08/18/2016 Amaurosis fugax 04/15/2015 08/18/2016 Other acquired deformity of toe 06/15/2014 08/18/2016 Myopia 04/22/2014 08/18/2016 Presbyopia 04/22/2014 08/18/2016 Other vitreous opacities 04/22/201403/2017 Actinic skin damage 10/25/2013 08/19/19 17 Milial cysts 10/25/2013 08/18/2016 Sebaceous hyperplasia 10/25/20132016 Seborrheic Keratoses 10/25/2013 017 Contact dermatitis due to plant 09/02/2012 08/18/2016 Tick bite of back 09/02/2012 08/18/2016 Insect bite of trunk 09/02/2012 017 Pyoderma, unspecified 09/02/20122016 Claw toe, acquired 08/11/2012 7 Solar lentigo 07/10/2010 08/18/2016 Moniliasis skin 05/10/2010 08/18/2016 Perioral dermatitis 05/10/2010 08/19/19 17 Cheilitis 03/15/2010 08/18/2016 Angular cheilitis 03/15/2010 08/18/2016 Eczematous dermatitis 03/15/20102016 Xerosis cutis 03/15/2010 08/18/2016 Viral warts, unspecified 10/29/2008 SKIN TAG PAPILLOMA///SKIN HYPERTRO/ATROPH NOS 09/18/19 09 10/25/2013 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 014 Inflamed seborrheic keratosis 07/01/2008 10/25/2013 CONTACT///COSMETIC DERMATITIS 11/04/2007 10/25/2013 Other seborrheic dermatitis 08/23/2007 10/25/2013 Contact dermatitis and other eczema due to other specified agent 08/23/2007 10/25/2013 DTFB///BENIGN DEYANIRA SKIN ARM 08/23/2007 0 10/25/2013 Other psoriasis 02/20/2006 10/25/2013 Contact dermatitis and other eczema, due to unspecified cause 02/20/2006 10/25/2013 Unspecified pruritic disorder 02/20/2006 10/25/2013 XEROSIS///SEBACEOUS GLAND DIS NEC 02/20/2006 10/25/2013 Other atopic dermatitis and related conditions 02/20/2006 10/25/2013 ACTINIC DAMAGE//CHR SOLAR SKIN DAMAGE NOS 02/20/2006 10/25/2013 Actinic keratosis 02/20/2006 10/25/2013 SOLAR LENTIGINES////DYSCHROMIA OTHER 02/20/2006 10/25/2013 Other seborrheic keratosis 02/20/2006 0 10/25/2013 Hallux valgus (acquired) 10/05/200503/2017 documented as of this encounter (statuses as of 12/09/2022) [facility] History of Past illness Narrative* Problem Noted Date Diagnosed Date Resolved Date Vitreous hemorrhage of left eye 06/06/2018 06/10/2018 Acute atopic conjunctivitis, bilateral 03/31/2016 08/18/2016 Regular astigmatism of right eye 10/25/2015 08/18/2016 Foreign body in conjunctival sac 04/15/2015 08/18/2016 Amaurosis fugax 04/15/2015 08/18/2016 Other acquired deformity of toe 06/15/2014 08/18/2016 Myopia 04/22/2014 08/18/2016 Presbyopia 04/22/2014 08/18/2016 Other vitreous opacities 04/22/201403/2017 Actinic skin damage 10/25/2013 08/19/19 17 Milial cysts 10/25/2013 08/18/2016 Sebaceous hyperplasia 10/25/20132016 Seborrheic Keratoses 10/25/2013 017 Contact dermatitis due to plant 09/02/2012 08/18/2016 Tick bite of back 09/02/2012 08/18/2016 Insect bite of trunk 09/02/2012 017 Pyoderma, unspecified 09/02/20122016 Claw toe, acquired 08/11/2012 7 Solar lentigo 07/10/2010 08/18/2016 Moniliasis skin 05/10/2010 08/18/2016 Perioral dermatitis 05/10/2010 08/19/19 17 Cheilitis 03/15/2010 08/18/2016 Angular cheilitis 03/15/2010 08/18/2016 Eczematous dermatitis 03/15/20102016 Xerosis cutis 03/15/2010 08/18/2016 Viral warts, unspecified 10/29/2008 SKIN TAG PAPILLOMA///SKIN HYPERTRO/ATROPH NOS 09/18/19 09 10/25/2013 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 014 Inflamed seborrheic keratosis 07/01/2008 10/25/2013 CONTACT///COSMETIC DERMATITIS 11/04/2007 10/25/2013 Other seborrheic dermatitis 08/23/2007 10/25/2013 Contact dermatitis and other eczema due to other specified agent 08/23/2007 10/25/2013 DTFB///BENIGN DEYANIRA SKIN ARM 08/23/2007 0 10/25/2013 Other psoriasis 02/20/2006 10/25/2013 Contact dermatitis and other eczema, due to unspecified cause 02/20/2006 10/25/2013 Unspecified pruritic disorder 02/20/2006 10/25/2013 XEROSIS///SEBACEOUS GLAND DIS NEC 02/20/2006 10/25/2013 Other atopic dermatitis and related conditions 02/20/2006 10/25/2013 ACTINIC DAMAGE//CHR SOLAR SKIN DAMAGE NOS 02/20/2006 10/25/2013 Actinic keratosis 02/20/2006 10/25/2013 SOLAR LENTIGINES////DYSCHROMIA OTHER 02/20/2006 10/25/2013 Other seborrheic keratosis 02/20/2006 0 10/25/2013 Hallux valgus (acquired) 10/05/200503/2017 documented as of this encounter (statuses as of 12/13/2022) [facility] History of Past illness Narrative* Problem Noted Date Diagnosed Date Resolved Date Vitreous hemorrhage of left eye 06/06/2018 06/10/2018 Acute atopic conjunctivitis, bilateral 03/31/2016 08/18/2016 Regular astigmatism of right eye 10/25/2015 08/18/2016 Foreign body in conjunctival sac 04/15/2015 08/18/2016 Amaurosis fugax 04/15/2015 08/18/2016 Other acquired deformity of toe 06/15/2014 08/18/2016 Myopia 04/22/2014 08/18/2016 Presbyopia 04/22/2014 08/18/2016 Other vitreous opacities 04/22/201403/2017 Actinic skin damage 10/25/2013 08/19/19 17 Milial cysts 10/25/2013 08/18/2016 Sebaceous hyperplasia 10/25/20132016 Seborrheic Keratoses 10/25/2013 017 Contact dermatitis due to plant 09/02/2012 08/18/2016 Tick bite of back 09/02/2012 08/18/2016 Insect bite of trunk 09/02/2012 017 Pyoderma, unspecified 09/02/20122016 Claw toe, acquired 08/11/2012 7 Solar lentigo 07/10/2010 08/18/2016 Moniliasis skin 05/10/2010 08/18/2016 Perioral dermatitis 05/10/2010 08/19/19 17 Cheilitis 03/15/2010 08/18/2016 Angular cheilitis 03/15/2010 08/18/2016 Eczematous dermatitis 03/15/20102016 Xerosis cutis 03/15/2010 08/18/2016 Viral warts, unspecified 10/29/2008 SKIN TAG PAPILLOMA///SKIN HYPERTRO/ATROPH NOS 09/18/19 09 10/25/2013 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 014 Inflamed seborrheic keratosis 07/01/2008 10/25/2013 CONTACT///COSMETIC DERMATITIS 11/04/2007 10/25/2013 Other seborrheic dermatitis 08/23/2007 10/25/2013 Contact dermatitis and other eczema due to other specified agent 08/23/2007 10/25/2013 DTFB///BENIGN DEYANIRA SKIN ARM 08/23/2007 0 10/25/2013 Other psoriasis 02/20/2006 10/25/2013 Contact dermatitis and other eczema, due to unspecified cause 02/20/2006 10/25/2013 Unspecified pruritic disorder 02/20/2006 10/25/2013 XEROSIS///SEBACEOUS GLAND DIS NEC 02/20/2006 10/25/2013 Other atopic dermatitis and related conditions 02/20/2006 10/25/2013 ACTINIC DAMAGE//CHR SOLAR SKIN DAMAGE NOS 02/20/2006 10/25/2013 Actinic keratosis 02/20/2006 10/25/2013 SOLAR LENTIGINES////DYSCHROMIA OTHER 02/20/2006 10/25/2013 Other seborrheic keratosis 02/20/2006 0 10/25/2013 Hallux valgus (acquired) 10/05/200503/2017 documented as of this encounter (statuses as of 01/17/2023) [facility] History of Past illness Narrative* Problem Noted Date Diagnosed Date Resolved Date Vitreous hemorrhage of left eye 06/06/2018 06/10/2018 Acute atopic conjunctivitis, bilateral 03/31/2016 08/18/2016 Regular astigmatism of right eye 10/25/2015 08/18/2016 Foreign body in conjunctival sac 04/15/2015 08/18/2016 Amaurosis fugax 04/15/2015 08/18/2016 Other acquired deformity of toe 06/15/2014 08/18/2016 Myopia 04/22/2014 08/18/2016 Presbyopia 04/22/2014 08/18/2016 Other vitreous opacities 04/22/201403/2017 Actinic skin damage 10/25/2013 08/19/19 17 Milial cysts 10/25/2013 08/18/2016 Sebaceous hyperplasia 10/25/20132016 Seborrheic Keratoses 10/25/2013 017 Contact dermatitis due to plant 09/02/2012 08/18/2016 Tick bite of back 09/02/2012 08/18/2016 Insect bite of trunk 09/02/2012 017 Pyoderma, unspecified 09/02/20122016 Claw toe, acquired 08/11/2012 7 Solar lentigo 07/10/2010 08/18/2016 Moniliasis skin 05/10/2010 08/18/2016 Perioral dermatitis 05/10/2010 08/19/19 17 Cheilitis 03/15/2010 08/18/2016 Angular cheilitis 03/15/2010 08/18/2016 Eczematous dermatitis 03/15/20102016 Xerosis cutis 03/15/2010 08/18/2016 Viral warts, unspecified 10/29/2008 SKIN TAG PAPILLOMA///SKIN HYPERTRO/ATROPH NOS 09/18/19 09 10/25/2013 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 014 Inflamed seborrheic keratosis 07/01/2008 10/25/2013 CONTACT///COSMETIC DERMATITIS 11/04/2007 10/25/2013 Other seborrheic dermatitis 08/23/2007 10/25/2013 Contact dermatitis and other eczema due to other specified agent 08/23/2007 10/25/2013 DTFB///BENIGN DEYANIRA SKIN ARM 08/23/2007 0 10/25/2013 Other psoriasis 02/20/2006 10/25/2013 Contact dermatitis and other eczema, due to unspecified cause 02/20/2006 10/25/2013 Unspecified pruritic disorder 02/20/2006 10/25/2013 XEROSIS///SEBACEOUS GLAND DIS NEC 02/20/2006 10/25/2013 Other atopic dermatitis and related conditions 02/20/2006 10/25/2013 ACTINIC DAMAGE//CHR SOLAR SKIN DAMAGE NOS 02/20/2006 10/25/2013 Actinic keratosis 02/20/2006 10/25/2013 SOLAR LENTIGINES////DYSCHROMIA OTHER 02/20/2006 10/25/2013 Other seborrheic keratosis 02/20/2006 0 10/25/2013 Hallux valgus (acquired) 10/05/200503/2017 documented as of this encounter (statuses as of 01/21/2023) [facility] Diagnosis Arthritis of first metatarsophalangeal (MTP) joint of right foot- Primary Arthritis of right ankle Unspecified arthropathy, ankle and foot Acquired hallux interphalangeus, right Post-operative pain Other acute postoperative pain [facility] Diagnosis Personal history of malignant neoplasm of breast- Primary [facility] Diagnosis Need for prophylactic antibiotic- Primary Encounter for long-term (current) use of antibiotics [facility] this [facility]* Diagnosis History of left breast cancer- Primary Encounter for screening mammogram for malignant neoplasm of breast Other screening mammogram [facility] Diagnosis Encounter for screening mammogram for malignant neoplasm of breast Other screening mammogram History of left breast cancer [facility] Diagnosis Acute cough- Primary URI, acute Acute upper respiratory infections of unspecified site [facility] Diagnosis Need for prophylactic antibiotic- Primary Encounter for long-term (current) use of antibiotics [facility]* Diagnosis Myopia, bilateral- Primary Myopia Presbyopia Combined forms of age-related cataract of both eyes Other and combined forms of senile cataract [facility] Diagnosis Neoplasm of uncertain behavior of skin- Primary Actinic keratosis Actinic skin damage Other chronic dermatitis due to solar radiation [facility] Diagnosis Need for prophylactic antibiotic Encounter for long-term (current) use of antibiotics [facility] Diagnosis Pain- Primary Generalized pain [facility]* Diagnosis History of left breast cancer- Primary Encounter for screening mammogram for malignant neoplasm of breast Other screening mammogram [facility] Diagnosis Status post bilateral knee replacements- Primary Knee joint replacement by other means documented in this encounter [facility] note* Diagnosis Rash- Primary Rash and other nonspecific skin eruption documented in this encounter [facility] note* Diagnosis Need for prophylactic antibiotic Encounter for long-term (current) use of antibiotics documented in this encounter [facility] note* Diagnosis Need for prophylactic antibiotic- Primary Encounter for long-term (current) use of antibiotics documented in this encounter [facility] note* Diagnosis Chronic constipation- Primary Unspecified constipation documented in this encounter [facility] for referral (narrative)* Diagnostic Procedure Only (Routine) - Pending Review Specialty Diagnoses / Procedures Referred By Mariana carrillo Referred To Contact XR IMAGING Diagnoses Pain Procedures XR KNEE GENERAL 4V AP BOTH/PA BOTH/LAT/MERC BILATERAL RADIOLOGIC EXAM KNEE COMPLETE 4/MORE VIEWS Campbell Villar PA-C [address] [place] [address] Xr Imaging Referral ID Status Reason Start Date Expiration Date Visits Requested Visits Authorized [id number] Pending Review Auto-Generat ed Referral 08/14/2022 09/13/2023 1 1 [facility] for visit Narrative* Auth/Cert Specialty Diagnoses / Procedures Referred By Mariana carrillo Referred To Contact Diagnoses Arthritis of foot, right, degenerative Arthritis of foot, right, degenerative [M19.071] Procedures MO FUSION BIG TOE,I-P JOINT ARTHRODESIS INTERPHALANGEAL JOINT Referral ID Status Reason Start Date Expiration Date Visits Re quested Visits Authorized [id number] 1 1 [facility] Summary Purpose Family History No Family History Records FoundNo Family History Records FoundNo Family History Records FoundNo Family History Records FoundNo Family History Records FoundNo Family History Records Found Advance Directives No Advanced Directives Records FoundDocuments on File Type Date Recorded Patient Sample Display Preparer Expl anation Advance Directive(s) 05/22/2018 10:25 AM Advance Directive(s) 05/22/2018 11:27 AM Advance Directive(s) 05/02/2018 5:18 PM Advance Directive(s) 08/18/2016 3:32 PM Documents on File Type Date Recorded Patient Sample Display Preparer Expl anation Advance Directive(s) 05/22/2018 10:25 AM Documents on File Type Date Recorded Patient Sample Display Preparer Expl anation Advance Directive(s) 05/22/2018 10:25 AM Procedure Findings Note HNO ID: [id number] Author: Spenser Pitt Service: Orthopaedic Surgery Author Type: Physician Type: Operative Report Filed: 05/30/2018 3:12 PM Note Text: OPERATIVE NOTE PATIENT NAME: Reg Dorsey LOG ID: [id number] Surgery Date: 05/30/2018 Surgeon(s) and Cupola Repairer(s): Surgeon(s) and Role: * Renate Pitt - Primary * Guero (Too) Aneudy - Resident - Assisting * Leonardo Byrd - Fellow Physician Cupola Repairer: Chery Calvillo (Thelma) Matt; Campbell Romero) Poly Procedure(s): Procedure(s) (LRB): ARTHROPLASTY REPLACE JOINT TOTAL HIP (Right) BMI: Estimated body mass index is 25.61 kg/m? as calculated from the following: Height as of 05/22/18: 157.5 cm (5' 2 ). Weight as of 05/22/18: 63.5 kg (140 lb). Anesthesia: Spinal Operative Time: Total operative time from wheels in to wheels out, including anesthesia time was * Missing case tracking time(s) * Incision Start: 2:03 PM Incision Stop: 3:30 PM Attestation: I was present for all of the critical portions of the operation and performed al (more content not included)... Reason for Referral Specialty Diagnoses / Procedures Referred By Mariana carrillo Referred To Contact Procedures US IMAGING OR DesRafiq hallman DO [address] [place] [address] Referral ID Status Reason Start Date Expiration Date V isits Requested Visits Authorized [id number] New Request 11/26/2020 12/21/2021 1 1 Specialty Diagnoses / Procedures Referred By Mariana carrillo Referred To Contact Diagnoses History of left breast cancer Encounter for screening mammogram for malignant neoplasm of breast Procedures MAMMO SCREENING WITH Sugar Malin, SEO STRATEGIST-BEAM DOFFER [address] [id number] Referral ID Status Reason Start Date Expiration Date V isits Requested Visits Authorized [id number] New Request 10/04/2021 10/29/2022 1 1 Specialty Diagnoses / Procedures Referred By Mariana carrillo Referred To Contact Diagnoses Encounter for screening mammogram for malignant neoplasm of breast History of left breast cancer Procedures MAMMO SCREENING WITH BLAS Sugar Ross, SEO STRATEGIST-BEAM DOFFER [address] [facility] [place] [address] Referral ID Status Reason Start Date Expiration Date V isits Requested Visits Authorized [id number] Pending Review 09/28/2020 10/23/2021 1 1 Referral ID Status Reason Start Date Expiration Date V isits Requested Visits Authorized [id number] New Request 10/17/2022 11/11/2023 1 1 Health Concerns Infection Onset Date Last Indicated Resolved Time COVID-19 Rule-Out 02/07/2022 02/07/2022 Medications Administered Section Active Administered Medications - up to 3 most recent administrations Medication Order MAR Action Action Date Dose Rate Site tropicamide 0.5 % 1 Drop (MYDRIACYL) 1 Drop, BOTH EYES, DIRECTED, Starting on Sun07/05/22 at 1030, Until Sun07/05/22 at 2229, Administer for dilation Given 07/05/2022 10:30 AM EDT 1 Drop Additional Source Comments INFORMATION SOURCE (unrecogn ized section and content) DATE CREATED AUTHOR AUTHOR'S ORGANIZ ATION 06/05/2018 [facility] DATE CREATED AUTHOR AUTHOR'S ORGANIZ ATION 08/16/2021 [facility] DATE CREATED AUTHOR AUTHOR'S ORGANIZ ATION 08/18/2021 [facility] DATE CREATED AUTHOR AUTHOR'S ORGANIZ ATION 10/18/2022 [facility] DATE CREATED AUTHOR AUTHOR'S ORGANIZ ATION 01/22/2023 [facility] Continuous Active and Recently Administ ered Medications (unrecognized section and content) PRN Medication Order 11/24/2020 11/25/2020 11/26/2020 bupivacaine (PF) (MARCAINE) 0.5 % injection (CANCELED) NEEDED, Starting on Sun11/26/20 at 0748, Until Sun11/26/20 at 0821, Intra-op/Intra-Proc 0748 (Given - Provid er: Kiran Cevallos MD) ceFAZolin (ANCEF) 2 g in dextrose 100 mL premix IVPB (COMPLETED) 2 g, Intravenous, Administer over 30 Minutes, SALES REPRESENTATIVE [employer]IR[employer] TO PROCEDURE, 1 dose, Starting on Sun11/26/20 at 0650, Until Discontinued, Other, surgical prophylaxis, Antibiotics to be infused 15-60 minutes prior to surgical incision and complete infusion prior to incision., Pre-op/Pre-Proc 0735 (Given - Provid er: Beatriz Cunningham, SEO STRATEGIST-STATION CAPTAIN) fentaNYL (SUBLIMAZE) injection 25 mcg 25 mcg, Intravenous, Administer over 2 Minutes, EVERY 10 MINUTES NEEDED, 4 doses, Starting on Sun11/26/20 at 0811, Until Sun11/26/20 at 1126, Moderate Pain, Max 200mcg, Post-op/Post-Proc HYDROmorphone (DILAUDID) injection 0.2 mg(Linked Group 1) 0.2 mg, Intravenous, EVERY 5 MINUTES NEEDED, Starting on Sun11/26/20 at 0811, Until Sun11/26/20 at 1126, Moderate Pain, Severe Pain, Use as initial dose. Higher dose may be administered if lower dose did not result in adverse effects (RR<10, decrease in level of consciousness) and was previously documented as ineffective. May give a total of 4mg in PACU., Recovery HYDROmorphone (DILAUDID) injection 0.5 mg(Linked Group 1) 0.5 mg, Intravenous, EVERY 5 MINUTES NEEDED, Starting on Sun11/26/20 at 0811, Until Sun11/26/20 at 1126, Moderate Pain, Severe Pain, Higher dose may be administered if lower dose did not result in adverse effects (RR<10, decrease in level of consciousness) and was previously documented as ineffective. Decrease back to lower dose if patient has adverse effects, or no PRN used in previous 30 minutes. May give a total of 4mg in PACU ., Recovery lidocaine 1% buffered in sodium bicarbonate 1-8.4 % injection SOSY 1 mL 1 mL, Intradermal, NEEDED, Starting on Sun11/26/20 at 0650, Until Sun11/26/20 at 1126, Other, for peripheral IV insertion, For peripheral IV insertion, Pre-op/Pre-Proc 0659 (Given - Provid er: Brit Ospina RN) lidocaine-epinephrine 1%-1:223612 injection (CANCELED) NEEDED, Starting on Sun11/26/20 at 0748, Until Sun11/26/20 at 0821, Intra-op/Intra-Proc 0748 (Given - Provid er: Kiran Cevallos MD) ondansetron 4mg/2ml (ZOFRAN) injection 4 mg 4 mg, Intravenous, ONCE NEEDED, 1 dose, Starting on Sun11/26/20 at 0811, Until Sun11/26/20 at 1126, Nausea / Vomiting, FIRST line antiemetic, Do not administer within 6 hours of intra-operative dose., Recovery oxyCODONE (ROXICODONE) tablet 5 mg 5 mg, Oral, EVERY 5 MINUTES NEEDED, Starting on Sun11/26/20 at 0811, Until Sun11/26/20 at 1126, Moderate Pain, May repeat x 1 dose for moderate pain, May repeat one dose for moderate pain, Post-op/Post-Proc Linked Groups Order Group 1: HYDROmorphone (DILAUDID) injection 0.2 mgJump to med 0.2 mg, Intravenous, EVERY 5 MINUTES NEEDED, Starting on Sun11/26/20 at 0811, Until Sun11/26/20 at 1126, Moderate Pain, Severe Pain
Use as initial dose. Higher dose may be administered if lower dose did not result in adverse effects (RR<10, decrease in level of consciousness) and was previously documented as ineffective. May give a total of 4mg in PACU.
Recovery Or HYDROmorphone (DILAUDID) injection 0.5 mgJump to med 0.5 mg, Intravenous, EVERY 5 MINUTES NEEDED, Starting on Sun11/26/20 at 0811, Until Sun11/26/20 at 1126, Moderate Pain, Severe Pain
Higher dose may be administered if lower dose did not result in adverse effects (RR<10, decrease in level of consciousness) and was previously documented as ineffective. Decrease back to lower dose if patient has adverse effects, or no PRN used in previous 30 minutes. May give a total of 4mg in PACU .
Recovery Care Teams (unrecognized sec tion and content) [employer]ilingual [employer] Teacher Relationship Specialty Start Date End Date Isra Alfaro MD [address], [place] [id number] PCP - General 01/14/09 Blank Fleming RN Registered Nurse 03/28/12 Campbell Dumont III, MD [address], [address] [place] [address] Surgeon Surgical Oncology 05/19/09 [employer]ilingual [employer] Teacher Relationship Specialty Start Date End Date Isra Alfaro MD [address] [place] [id number] PCP - General Family Practice 05/10/10 [employer]ilingual [employer] School Teacher Relationship Specialty Start Date End Date Isra Alfaro MD [address] [place], [place] [address] PCP - General Family Practice 05/10/10 Bilingual Middle School Teacher Relationship Specialty Start Date End Date Isra Alfaro MD [address] [place] [address] PCP - General 01/14/09 Blank Fleming RN Registered Nurse 03/28/12 Campbell Dumont III, MD [address] [facility] [address] Floor, [address] [place] [address] Surgeon Surgical Oncology 05/19/09 Bilingual Middle School Teacher Relationship Specialty Start Date End Date Isra Alfaro MD [address], [place] [address] PCP - General 01/14/09 Blank Fleming RN Registered Nurse 03/28/12 Campbell Dumont III, MD [address] [facility] 3rd Floor, [address] [place] [address] Surgeon Surgical Oncology 05/19/09 Bilingual [employer] School Teacher Relationship Specialty Start Date End Date Isra Alfaro MD [address] [place] [address] PCP - General Family Medicine 05/10/10 Bilingual Middle School Teacher Relationship Specialty Start Date End Date Isra Alfaro MD [address] [place] [address], [place] [address] PCP - General Family Medicine 05/10/10 Bilingual Middle School Teacher Relationship Specialty Start Date End Date Isra Alfaro MD [address] [place] [address], [place] [address] PCP - General Family Medicine 05/10/10 Bilingual Middle School Teacher Relationship Specialty Start Date End Date Isra Alfaro MD [address] [place] [address] PCP - General 01/14/09 Blank Fleming, HERI Registered Nurse 03/28/12 Campbell Dumont III, MD [address] [facility] [address]rd Floor, [address] [place] [address] Surgeon Surgical Oncology 05/19/09 Bilingual [employer] School Teacher Relationship Specialty Start Date End Date Isra Alfaro MD [address] [place] [address], [place] [address] PCP - General Family Medicine 05/10/10 Bilingual Middle School Teacher Relationship Specialty Start Date End Date Isra Alfaro MD [address] [place] [address], [place] [address] PCP - General Family Medicine 05/10/10 Bilingual Middle School Teacher Relationship Specialty Start Date End Date Isra Alfaro MD [facility] [address] [place], [place] [id number] PCP - General 01/14/09 Blank Fleming, RN Registered Nurse 03/28/12 Campbell Dumont III, MD [address], [address] [place] [address] Surgeon Surgical Oncology 05/19/09 Bilingual Middle School Teacher Relationship Specialty Start Date End Date Isra Alfaro MD [address] [place], [place] [address] PCP - General Family Medicine 05/10/10 Bilingual Middle School Teacher Relationship Specialty Start Date End Date Isra Alfaro MD [address] [facility] [place] [address] PCP - General Family Medicine 05/10/10 Bilingual Middle School Teacher Relationship Specialty Start Date End Date Isra Alfaro MD [address] [place], [place] [id number] PCP - General Family Medicine 05/10/10 Bilingual Middle School Teacher Relationship Specialty Start Date End Date Isra Alfaro MD [address] [facility] [address] [place], [place] [address] PCP - General Family Medicine 05/10/10 <item> Privacy Markings (unrecogniz ed section and content) Section Author: Cammie Sung PROHIBITION ON REDISCLOSURE OF CONFIDENTIAL INFORMATION This notice accompanies a disclosure of information concerning a client made to you with the consent of such client. Reason for Visit (unrecogniz ed section and content) Reason Onset Date Comments Refill Request 09/06/2021 Reason Comments Follow-up Specialty Diagnoses / Procedures Referred By Contac t Referred To Contact Diagnoses Encounter for screening mammogram for malignant neoplasm of breast History of left breast cancer Procedures MAMMO SCREENING WITH BLAS BILATERAL Sugar Everett, SEO STRATEGIST-BEAM DOFFER [address] [place] [address] Referral ID Status Reason Start Date Expiration Date V isits Requested Visits Authorized [id number] Pending Review 09/28/2020 10/23/2021 1 1 Reason Comments Cough Nasal congestion, nilda dy aches, x4 days. Reason Comments Contact lens evaluation Cataract Evaluation Reason Comments New Patient Pt had melanoma tape test that was positive on her left cheek from [facility] in [facility] on 06/14/22. No history of skin cancer. She does have a history of breast cancer. Specialty Diagnoses / Procedures Referred By Contpat t Referred To Contact Dermatology Procedures NEW DERMATOLOGY ONCOLOGY eRnée Gomez MD [address] [facility] 4th [place] [address] Referral ID Status Reason Start Date Expiration Date V isits Requested Visits Authorized [id number] New Request 07/18/2022 08/12/2023 1 1 Reason Comments Refill Request Reason Comments Follow-up 1 year follow up wit h imaging. No current concerns. Reason Comments Derm Problem Rash on right leg x 3 days Reason Comments Constipation For a few months, ta leonardo gerilax x 1 week no n/v Source Comments (unrecognize d section and content) In the event this informatio n is protected by the Federal Confidentiality of Alcohol and Drug Abuse Patient Records regulations: The Federal rules restrict any use of the information to criminally investigate or prosecute any alcohol or drug abuse patient.[facility] the event this information is protected by the Federal Confidentiality of Alcohol and Drug Abuse Patient Records regulations: The Federal rules restrict any use of the information to criminally investigate or prosecute any alcohol or drug abuse patient.[facility] the event this information is protected by the Federal Confidentiality of Alcohol and Drug Abuse Patient Records regulations: The Federal rules restrict any use of the information to criminally investigate or prosecute any alcohol or drug abuse patient.[facility] the event this information is protected by the Federal Confidentiality of Alcohol and Drug Abuse Patient Records regulations: The Federal rules restrict any use of the information to criminally investigate or prosecute any alcohol or drug abuse patient.[facility] the event this information is protected by the Federal Confidentiality of Alcohol and Drug Abuse Patient Records regulations: The Federal rules restrict any use of the information to criminally investigate or prosecute any alcohol or drug abuse patient.[facility] the event this information is protected by the Federal Confidentiality of Alcohol and Drug Abuse Patient Records regulations: The Federal rules restrict any use of the information to criminally investigate or prosecute any alcohol or drug abuse patient.[facility] the event this information is protected by the Federal Confidentiality of Alcohol and Drug Abuse Patient Records regulations: The Federal rules restrict any use of the information to criminally investigate or prosecute any alcohol or drug abuse patient.[facility] the event this information is protected by the Federal Confidentiality of Alcohol and Drug Abuse Patient Records regulations: The Federal rules restrict any use of the information to criminally investigate or prosecute any alcohol or drug abuse patient.[facility] the event this information is protected by the Federal Confidentiality of Alcohol and Drug Abuse Patient Records regulations: The Federal rules restrict any use of the information to criminally investigate or prosecute any alcohol or drug abuse patient.[facility] the event this information is protected by the Federal Confidentiality of Alcohol and Drug Abuse Patient Records regulations: The Federal rules restrict any use of the information to criminally investigate or prosecute any alcohol or drug abuse patient.[facility]In the event this information is protected by the Federal Confidentiality of Alcohol and Drug Abuse Patient Records regulations: The Federal rules restrict any use of the information to criminally investigate or prosecute any alcohol or drug abuse patient.[facility] the event this information is protected by the Federal Confidentiality of Alcohol and Drug Abuse Patient Records regulations: The Federal rules restrict any use of the information to criminally investigate or prosecute any alcohol or drug abuse patient.[facility] FOR RECORDS PERTAINING TO PATIENTS WHO ARE OR HAVE BEEN ENROLLED IN A CHEMICAL DEPENDENCY/SUBSTANCEABUSE PROGRAM, SOME INFORMATION MAY BE OMITTED. This clinical summary was aggregated from multiple sources. Caution should be exercised in using it in the provision of clinical care. This summary normalizes information from multiple sources, and as a consequence, information in this document may materially change the coding, format and clinical context of patient data. In addition, data may be omitted in some cases. CLINICAL DECISIONS SHOULD BE BASED ON THE PRIMARY CLINICAL RECORDS. [facility] provides no warranty or guarantee of the accuracy or completeness of information in this document.
[2023-04-06 12:13] LABS: Anion Gap 3 (5-15); BUN 26 mg/dL (7-18); Calcium,Total 9.4 mg/dL (8.5-10.1); Chloride 104 mmol/L (98-107); Creatinine, Serum 1.04 mg/dL (0.55-1.02); EST Glomerular Filtration Rate 54 mL/min (>60); Est Glom Filt Rate - Afr Amer 66 mL/min (>60); Glucose 112 mg/dL (74-106); Potassium 3.9 mmol/L (3.5-5.1); Sodium Level 138 mmol/L (136-145)
[2023-04-06 12:14] LABS: BNP,B-Type NATRIURETIC PEPTIDE 23.4 pg/mL (0-100)
== END | disposition home or self-care (01) ==
LOC: PAVLAB 11:38
PROVIDERS: PCP Family Medicine; Referring Provider Nurse Practitioner Acute Care; Visit Provider Nurse Practitioner Acute Care
DX: R06.02 Shortness of breath (principal)
CPT/HCPCS: 36415; 71046; 80048; 83880

== ENCOUNTER → 2023-05-23 | Outpatient (CLI) | payer MEDICARE, SELFPAY ==
--- NOTE | 2023-05-23 09:28 | BD_ITS ---
STUDY: DUAL ENERGY X-RAY ABSORPTIOMETRY / DXA REASON FOR EXAM: Female, 77 years old. M85.89 TECHNIQUE: Bone Mineral Density (BMD) measurements of lumbar spine and left hip were obtained. COMPARISON: Comparison is made with prior study December 02, 2019. FINDINGS: Lumbar Spine (L1-L4): g/cm2 (0.966) / T-score (-0.7) / Z-score (1.9) Findings are suggestive of normal bone density with a low fracture risk. Left Femur Total: g/cm2 (0.715) / T-score (-1.9) / Z-score (0.2) Left Femoral Neck: g/cm2 (0.638) / T-score (-1.9) / Z-score (0 point) The T-Scores on the most recent prior examination were: Lumbar Spine (L1-L4): There has been worsening of bone density since the previous examination. Left Femur Total: which represents an improvement of 3.5%. BD/Dexa Bone Density Study IMPRESSION: The patient is considered osteopenic as outlined below according to World Av Organization (WHO) criteria with a moderate fracture risk. There has been improvement of bone density since the previous examination. Reference Information: The T-score is the number of standard deviations above or below the standard which is normal for young adults at their peak bone mineral density. The World Health Organization (WHO) interprets the T-scores as follows: Above -1 Normal bone density Between -1 and -2.5 Osteopenia Equal to / or below -2.5 Osteoporosis As a practical clinical guideline, osteopenia may be graded as follows: Mild -1 through -1.5 Moderate -1.6 through -2.0 Severe -2.1 through -2.4 The Z-score is the number of standard deviations above or below age-matched controls. A Z-score of less than -1.5 would be considered abnormal. References: 1. NIH Osteoporosis and Related Bone Diseases www osteo.org 2. International Society for Clinical Densitometry www iscd.org 3. National Osteoporosis Foundation www nof.org Electronically Signed: Anil Carlin MD at 9:56 EST ,
== END | disposition home or self-care (01) ==
LOC: OPBD 09:26
PROVIDERS: PCP Family Medicine; Referring Provider Family Medicine; Visit Provider Family Medicine
DX: M85.89 Other specified disorders of bone density and structure, multiple sites (principal)
CPT/HCPCS: 77080

== ENCOUNTER → 2023-07-12 | Outpatient (CLI) | payer MEDICARE, SELFPAY ==
[2023-07-12 18:00] LABS: Anion Gap 6 (5-15); BUN 23 mg/dL (7-18); Calcium,Total 9.8 mg/dL (8.5-10.1); Chloride 105 mmol/L (98-107); Creatinine, Serum 0.96 mg/dL (0.55-1.02); EST Glomerular Filtration Rate 59 mL/min (>60); Est Glom Filt Rate - Afr Amer 72 mL/min (>60); Glucose 100 mg/dL (74-106); Potassium 3.8 mmol/L (3.5-5.1); Sodium Level 139 mmol/L (136-145)
== END | disposition home or self-care (01) ==
LOC: MFPLAB 15:41
PROVIDERS: PCP Family Medicine; Visit Provider Family Medicine
DX: I12.9 Hypertensive chronic kidney disease with stage 1 through stage 4 chronic kidney disease, or unspecified chronic kidney disease (principal)
CPT/HCPCS: 36415; 80048

== ENCOUNTER 2023-07-22 21:50 | Emergency (ER) | payer MEDICARE, SELFPAY ==
[2023-07-22 21:51] VITALS: BP 169/78; PULSE 97; RESP 17; TEMP 36.7; O2SAT 97; BMI 28.2
--- NOTE | 2023-07-22 22:22 | EKG12_ITS ---
Test Reason : CP Blood Pressure : / mmHG Vent. Rate : 094 BPM Atrial Rate : 094 BPM P-R Int : 196 ms QRS Dur : 078 ms QT Int : 366 ms P-R-T Axes : 019 021 021 degrees QTc Int : 457 ms Normal sinus rhythm Normal ECG Confirmed by MAX KING MD ([id number]), editorial clerk CRUZ GOLDMAN ([id number]) on 07/24/2023 8:20:06 AM Referred By: Confirmed By:MAX KING MD
[2023-07-22] MEDS: Orphenadrine 60 MG/2 ML Ampul IV (22:29)
[2023-07-22] MEDS: Ketorolac 15 MG/ML Vial IV (22:29)
[2023-07-22 22:33] LABS: Absolute Lymphocyte Count 2.18 X10^3/uL (0.83-4.51); Absolute Neutrophil Count 3.4 X10^3/uL (2.0-7.7); Basophil# 0.04 X10^3/uL; Basophil% 0.6 % (0-1); Eosinophil# 0.39 X10^3/uL; Eosinophils% 5.9 % (0-5); Hematocrit 35.5 % (37-47); Hemoglobin 11.7 g/dL (12.0-15.0); Lymphocyte # 2.18 X10^3/ul (0.83-4.51); Lymphocyte % 32.8 % (19-41); Mean Corpuscular Hgb 30.1 pg (27.0-32.0); Mean Corpuscular Volume 91.3 fL (81-99); Mean Platelet Vol. 9.6 fl (6.2-12.0); Monocyte# 0.61 X10^3/uL; Monocyte% 9.2 % (0-10); NRBC Flagged by Analyzer 0 % (0-5); Neutrophil # 3.41 X10^3/uL (2.7-7.7); Neutrophil % 51.3 % (47-70); Platelet Count 340 K/mm3 (150-450); RBC Distribution Width CV 13.6 % (11.6-14.6); RBC Distribution Width SD 45.8 fl (35.1-43.9); Red Blood Count 3.89 M/mm3 (4.2-5.4); White Blood Count 6.6 K/mm3 (4.4-11.0)
--- NOTE | 2023-07-22 22:42 | EDS_ITS ---
HPI History of Present Illness Chief Complaint: Other, Pain/Inj Informant: patient and spouse/S.O. Narrative Narrative: Patient is an 78-year-old female with past medical history of asthma hypertension hyperlipidemia. She states that around 9 PM this evening she was standing in her kitchen when she developed pain in her left sided jaw. She states the pain is sharp in nature and does seem to worsen if she opens her mouth. However she denies any recent trauma or dental pain. She states that the pain does not radiate and there is no associated nausea vomiting or diaphoresis or shortness of breath but with concern this could be cardiac in nature she presents for evaluation [facility] Medical History Asthma without status asthmaticus Breast cancer Dyspepsia History of elevated cholesterol History of hypertension Obesity Home Medications lisinopril 5 mg tablet 20 mg PO DAILY 08/05/17 [History Last Taken Unknown] multivitamin 1 cap PO DAILY 06/13/19 [History Last Taken Unknown] atorvastatin 20 mg tablet 20 mg PO DAILY 03/23/20 [History Last Taken Unknown] calcium 600 mg capsule 600 mg PO DAILY 03/28/22 [History Last Taken Unknown] mometasone-formoterol HFA 100 mcg-5 mcg/actuation aerosol inhaler (Dulera) 2 puff inhalation Q12H #3 ea 04/05/22 [Rx Last Taken Unknown] albuterol sulfate 90 mcg/actuation aerosol inhaler 1 - 2 puff inhalation PRN PRN Bronchospasm #8.5 grams 06/18/23 [Rx Last Taken Unknown] methocarbamol 500 mg tablet 500 mg PO 4X/DAY PRN Muscle pain/spasm #40 tabs 07/22/23 [Rx Last Taken Unknown] sennosides 8.6 mg-docusate sodium 50 mg tablet (Senexon-S) 2 tab PO DAILY 07/22/23 [History Last Taken Unknown] Allergy/AdvReac Type Severity Reaction Status Date / Time animal dander Allergy Unknown Verified 04/06/23 11:08 house dust Allergy NEEDS Verified 04/06/23 11:08 FOLLOW-UP mold Allergy NEEDS Verified 04/06/23 11:08 FOLLOW-UP venom-honey bee Allergy Swelling Verified 04/06/23 11:08 Family History Grandmother Cancer Pancreatic Father CHF (congestive heart failure) Grandfather CVA (cerebral vascular accident) Surgical History H/O total knee replacement Hip replacement planned History of lumpectomy History of suburethral sling procedure History of toe surgery Social History Smoking Status: Never smoker alcohol intake: current details: Occasionally wine. ROS ROS ED Constitutional Constitutional ED: Denies chills or fever(s) Eyes Eyes: Denies change in vision ENT ENT ED: Reports other Details: Positive left-sided jaw pain ; Denies sore throat Cardiovascular Cardiovascular: Denies chest pain, palpitations or racing heartbeat Respiratory/Chest Respiratory/Chest: Denies cough or dyspnea Gastrointestinal Gastrointestinal: Denies abdominal pain, diarrhea, nausea or vomiting Genitourinary Genitourinary ED: Denies dysuria Musculoskeletal Musculoskeletal: Denies myalgias or neck pain Integumentary Denies rash Neurologic Neurologic: Denies headache(s) Hematologic/Lymphatic Hematologic/Lymphatic: Denies easy bleeding or easy bruising EXAM Physical Exam Const Vital Signs: 07/22/23 21:51 07/22/23 21:56 07/22/23 21:56 Temperature 98.1 F Temperature Source Oral Pulse Rate 97 Respiratory Rate 17 Respiratory Effort Normal Non-Labored Normal Non-Labored Respiratory Pattern Normal Blood Pressure 169/78 H Blood Pressure Mean 108 Pulse Ox 97 Oxygen Delivery Method Room Air 07/22/23 23:09 Temperature Temperature Source Pulse Rate 85 Respiratory Rate 17 Respiratory Effort Respiratory Pattern Blood Pressure 134/59 H Blood Pressure Mean 84 Pulse Ox 96 Oxygen Delivery Method Room Air Positive well nourished and well developed General Appearance ED: well developed; Negative for pallor HEENT Reports moist mucous membranes HEENT Narrative: No obvious dental caries or signs of dental infection No airway edema or compromise No tongue or lip swelling No sign of infection in the posterior pharynx Patient does have pain with opening of the mouth at the left TMJ joint and there is pain on palpation at this site as well. Patient states is the same pain she experienced at home Eyes PERRL and EOMs intact bilaterally General Eye ED: Negative for scleral icterus Neck supple and no JVD Resp normal respiratory effort and clear to auscultation bilaterally Cardio regular rate and regular rhythm Rate: other Other Details: Heart is regular rate and rhythm without murmurs rubs or gallops Radial and carotid pulses are equal and symmetric GI normal to inspection, nondistended, normoactive bowel sounds, non-tender, non- distended and no masses Auscultation: normoactive bowel sounds Palpation: soft Extremity normal to inspection Extremity Narrative: No asymmetric edema no pitting edema negative Homans' sign bilaterally Neuro oriented x3, CN's II-XII intact bilaterally and no sensory deficits noted Sensorium / Orientation: alert Motor Exam: strength 5/5 throughout Psych mental status grossly normal Skin no rashes or lesions noted, no wounds and skin turgor normal General Skin Exam: Negative for jaundice or pallor MDM MDM MDM Narrative Medical decision making narrative: Patient arrived to the ER mildly hypertensive otherwise with stable vitals. She reported pain in the left jaw that was sharp in nature and this is atypical for acute coronary syndrome but based on her advanced age and history of hypertension hyperlipidemia atypical cardiac presentation is still a possibility. Therefore basic labs were obtained which showed normal troponin at 6 as well as normal EKG. physical exam indicated this is most likely TMJ dysfunction as she had pain with opening her mouth and reproducible pain at the TMJ joint space without internal findings of the oral cavity for infection or dental fracture. She was given Toradol and Norflex and had resolution of symptoms and vitals improved as well. Therefore at this time as he history and exam indicate this is most likely TMJ and cardiac workup is negative she is otherwise safe for discharge History & Record Review Discussion w/independent historian: Patient and Significant other Lab Data Attestation: I reviewed the patient's lab results. Labs: Laboratory Results - last 24 hr 07/22/23 21:58 WBC 6.6 RBC 3.89 L Hgb 11.7 L Hct 35.5 L MCV 91.3 MCH 30.1 MCHC 33.0 RDW Std Deviation 45.8 H RDW Coeff of Ankush 13.6 Plt Count 340 MPV 9.6 Immature Gran % (Auto) 0.200 Neut % (Auto) 51.3 Lymph % (Auto) 32.8 [place] % (Auto) 9.2 Eos % (Auto) 5.9 H Baso % (Auto) 0.6 Absolute Neuts (auto) 3.4 Absolute Lymphs (auto) 2.18 Nucleated RBC % 0 Sodium 139 Potassium 3.9 Chloride 104 Carbon Dioxide 30.0 Anion Gap 5 BUN 38 H Creatinine 1.13 H Estim Creat Clear Calc 36.39 Est GFR (MDRD) Af Amer 60 Est GFR (MDRD) Non-Af 49 L BUN/Creatinine Ratio 33.6 H Glucose 112 H Calcium 9.0 Troponin I High Sens 6 Discharge Plan Triage Chief Complaint: Other, Pain/Inj ED Provider: David Vanegas Dx/Rx/DC Orders Clinical Impression: TMJ (temporomandibular joint syndrome), Hyperlipidemia, Hypertension Instructions: ED TMJ Syndrome Prescriptions: New methocarbamol 500 mg tablet 500 mg PO 4X/DAY PRN (Reason: Muscle pain/spasm) Qty: 40 0RF No Action multivitamin capsule 1 cap PO DAILY atorvastatin 20 mg tablet 20 mg PO DAILY Dulera 100-5 mcg/actuation HFA aerosol inhaler 2 puff INHALATION Q12H Qty: 3 3RF lisinopril 5 MG tablet 20 mg PO DAILY calcium 600 mg Capsule 600 mg PO DAILY sennosides-docusate sodium [Senexon-S] 8.6-50 mg tablet 2 tab PO DAILY albuterol sulfate 90 mcg/actuation HFA aerosol inhaler 1 - 2 puff inhalation PRN PRN (Reason: Bronchospasm) Qty: 8.5 1RF Primary Care Provider: Favio Alfaro Referrals: Favio Alfaro MD [Primary Care Provider] - Activity Restrictions/Additional Instructions: Your workup today shows no sign that your symptoms were related to a cardiac event but more so your temporomandibular joint. Follow-up with your dentist to discuss further diagnosis and treatment options for this and return to the ER should you have any further concerns Disposition Disposition: Home, Self Care
[2023-07-22 22:51] LABS: Anion Gap 5 (5-15); BUN 38 mg/dL (7-18); BUN/Creat Ratio 33.6 RATIO (10-20); Chloride 104 mmol/L (98-107); Creatinine, Serum 1.13 mg/dL (0.55-1.02); EST Glomerular Filtration Rate 49 mL/min (>60); Est Glom Filt Rate - Afr Amer 60 mL/min (>60); Estimated Creatinine Clearance 36.39 ml/min; Glucose 112 mg/dL (74-106); Potassium 3.9 mmol/L (3.5-5.1); Sodium Level 139 mmol/L (136-145); Troponin-I HS 6 pg/mL (3.0-54.0)
[2023-07-22 23:09] VITALS: BP 134/59; PULSE 85; RESP 17; O2SAT 96
[2023-07-22 23:15] VITALS: BP 134/59; PULSE 85; RESP 17; TEMP 36.7; O2SAT 96
== END 2023-07-22 23:20 | disposition home or self-care (01) ==
PROVIDERS: Emergency Provider Emergency Medicine; PCP Family Medicine; Visit Provider Emergency Medicine
DX: M26.612 Adhesions and ankylosis of left temporomandibular joint (principal); I10 Essential (primary) hypertension; E78.5 Hyperlipidemia, unspecified; Z85.3 Personal history of malignant neoplasm of breast; Z79.899 Other long term (current) drug therapy; J45.909 Unspecified asthma, uncomplicated; Z79.51 Long term (current) use of inhaled steroids; Z96.659 Presence of unspecified artificial knee joint; Z96.649 Presence of unspecified artificial hip joint
CPT/HCPCS: 80048; 84484; 85025; 93005; 96374; 96375; 99284; A4216

== ENCOUNTER → 2023-11-05 | Outpatient (CLI) | payer MEDICARE, SELFPAY ==
[2023-11-05 12:21] LABS: Anion Gap 4 (5-15); BUN 24 mg/dL (7-18); BUN/Creat Ratio 22.4 RATIO (10-20); Calcium,Total 8.9 mg/dL (8.5-10.1); Chloride 108 mmol/L (98-107); Creatinine, Serum 1.07 mg/dL (0.55-1.02); EST Glomerular Filtration Rate 52 mL/min (>60); Est Glom Filt Rate - Afr Amer 63 mL/min (>60); Glucose 104 mg/dL (74-106); Sodium Level 141 mmol/L (136-145)
== END | disposition home or self-care (01) ==
LOC: MFPLAB 10:30
PROVIDERS: PCP Family Medicine; Visit Provider Family Medicine
DX: N28.9 Disorder of kidney and ureter, unspecified (principal)
CPT/HCPCS: 36415; 80048

== ENCOUNTER → 2023-12-13 | Outpatient (CLI) | payer MEDICARE, SELFPAY ==
--- NOTE | 2023-12-13 09:00 | RAD_ITS ---
STUDY: X-RAY - ABDOMEN/PELVIS REASON FOR EXAM: Female, 78 years old. CONSTIPATED TECHNIQUE: AP supine and upright views of the abdomen and pelvis. COMPARISON: None. FINDINGS: Normal visualized lung bases. There is an unremarkable bowel gas pattern. There is no demonstrated free abdominal air. The visualized liver, spleen and kidneys are grossly normal in size and morphology. Normal soft tissue structures. Mild dextro scoliosis of the thoracolumbar spine. Status post right hip arthroplasty. RAD/Abd Inc Decub and/or Erect IMPRESSION: Normal x-ray examination of the abdomen and pelvis. Electronically Signed: Volodymyr Paulino MD at 10:38 EDT ,
== END | disposition home or self-care (01) ==
PROVIDERS: PCP Family Medicine; Referring Provider Family Medicine; Visit Provider Family Medicine
DX: K59.00 Constipation, unspecified (principal)
CPT/HCPCS: 74019

== ENCOUNTER 2024-02-23 16:36 | Emergency (ER) | payer MEDICARE, SELFPAY ==
[2024-02-23 16:37] VITALS: BP 172/74; PULSE 92; RESP 16; TEMP 36.6; O2SAT 99; BMI 26.2
--- NOTE | 2024-02-23 16:54 | EKG12_ITS ---
Test Reason : ABD PAIN Blood Pressure : */* mmHG Vent. Rate : 83 BPM Atrial Rate : 83 BPM P-R Int : 194 ms QRS Dur : 78 ms QT Int : 360 ms P-R-T Axes : 31 21 24 degrees QTcB Int : 423 ms Normal sinus rhythm Normal ECG Confirmed by FERNANDO MAN, MAX ([id number]), map editor CRUZ GOLDMAN ([id number]) on 02/25/2024 8:14:58 AM Referred By: Confirmed By: MAX KING MD
--- NOTE | 2024-02-23 17:12 | CT_ITS ---
We are attempting to reach an attending provider to discuss findings. An addendum with communication details will be sent when the communication is complete. STUDY: CT ABDOMEN AND PELVIS WITH CONTRAST REASON FOR EXAM: Female, 78 years old. RLQ pain RADIATION DOSAGE (If Supplied By Facility): CTDIvol = ( 18.19 ) mGy, DLP = ( 734.55 ) mGycm TECHNIQUE: Transaxial images were obtained from the dome of the diaphragm to the symphysis pubis without oral contrast. IV 100mL Isovue-[id number] was administered. Sagittal and coronal images were reconstructed. Individualized dose optimization techniques were used for this CT. The protocol utilizes one or more of the following dose reduction techniques: automated exposure control, adjustment of mA and/or kV according to patient size,and/or use of iterative reconstruction technique. COMPARISON: CT abdomen and pelvis September 18, 2010 report only without images FINDINGS: The visualized lung bases are unremarkable. The visualized portions of the heart are within normal limits. Normal liver. Normal gallbladder and extrahepatic biliary system. Normal spleen. Fatty atrophy of the pancreas. Normal bilateral adrenal glands. Simple right renal cyst measures 13 mm. Normal left kidney. Normal visualized stomach. Normal small intestine. Air-fluid levels in the small bowel. Colonic diverticulosis. Increased stool throughout the colon. Appendix appears somewhat prominent measuring up to 7 mm in diameter. Possible mild stranding of the periappendiceal fat. Calcified plaque along the aorta and its branches. Normal inferior vena cava. Normal retroperitoneum. Gas noted within the bladder. Uterus normal. Normal abdominal wall. Mild dextroconvex scoliosis. Right total hip arthroplasty. Grade 1 [address]hesis L4-5. CT/Abdomen/Pelvis W IV Cont ONLY IMPRESSION: Borderline appendix. Early appendicitis cannot be excluded. Ileus. Increased stool in the colon. Gas in the bladder may suggest recent catheterization or urinary tract infection. Other incidental findings as above. Electronically Signed: Harley Martinez MD at 19:19 EST ,
--- NOTE | 2024-02-23 17:13 | EX.ED.DYSGE1 ---
HPI History of Present Illness Chief Complaint: Abd Pain Narrative Narrative: Patient is a 78-year-old female with past medical history of asthma, hypertension who presented to the emergency department chief complaint of abdominal pain. Patient states that around 1:00 this afternoon she noted that she had abdominal pain in the right lower portion. States that this was sharp stabbing in nature. She states that the pain is waxing and waning and she states that when the pain is at its worst is a 9 out of 10. She currently rates her pain a 2 out of 10 here in the emergency department. Patient states that she has had a colonoscopy within the last few years. Patient denies any recent sick contacts. [facility] Medical History (Updated 02/23/24 @ 23:[address] Doroteo Kaiser, DO) Anxiety and depression Asthma Hyperlipidemia Hypertension TMJ (dislocation of temporomandibular joint) Breast cancer Obesity Home Medications ?Medication ?Instructions ?Recorded ?Last Taken ?Type lisinopril 5 mg tablet 20 mg PO DAILY 08/05/17 Unknown History multivitamin 1 cap PO DAILY 06/13/19 Unknown History atorvastatin 20 mg tablet 20 mg PO DAILY 03/23/20 Unknown History calcium 600 mg capsule 600 mg PO DAILY 03/28/22 Unknown History sennosides 8.6 mg-docusate sodium 2 tab PO DAILY 07/22/23 Unknown History 50 mg tablet (Senexon-S) mometasone-formoterol HFA 100 2 puff inhalation Q12H #3 ea 08/13/23 Unknown Rx mcg-5 mcg/actuation aerosol inhaler (Dulera) albuterol sulfate 90 mcg/actuation 1 - 2 puff inhalation PRN PRN 09/20/23 Unknown Rx aerosol inhaler Bronchospasm #8.5 grams escitalopram oxalate 5 mg tablet 5 mg PO QDAY 09/20/23 Unknown History mirabegron 50 mg tablet,extended 50 mg PO DAILY 09/20/23 Unknown History release 24 hr (Myrbetriq) dicyclomine 10 mg capsule 10 mg PO TID PRN abdominal pain 5 02/23/24 Unknown Rx days #15 caps Allergy/AdvReac Type Severity Reaction Status Date / Time animal dander Allergy Unknown Verified 02/23/24 16:37 house dust Allergy NEEDS Verified 02/23/24 16:37 FOLLOW-UP mold Allergy NEEDS Verified 02/23/24 16:37 FOLLOW-UP venom-honey bee Allergy Swelling Verified 02/23/24 16:37 Family History Grandmother Cancer Pancreatic Father CHF (congestive heart failure) Grandfather CVA (cerebral vascular accident) Surgical History History of lumpectomy History of toe surgery History of suburethral sling procedure H/O total knee replacement Hip replacement planned Social History (Updated 02/23/24 @ 19:[address] Nasrin Dugan MD) household members: spouse Smoking Status: Never smoker alcohol intake: current details: Occasionally wine. substance use type: does not use ROS ROS ED ROS Narrative Constitutional: Denies any fevers, chills, headaches, lightheadedness, dizziness Cardiovascular: Denies chest pain or palpitations Respiratory: Denies cough or wheezing shortness of breath Abdomen: Complains of abdominal pain as noted above denies nausea vomiting diarrhea : Denies any urinary symptoms Neurological: Denies any numbness, weakness, tingling Musculoskeletal: Denies back pain Skin: Denies rashes or lesions EXAM Physical Exam Narrative Exam Narrative: General: Patient was lying in bed rest comfortably did not appear to be acute distress Head: Atraumatic, normocephalic Eyes: PERRL bilaterally, EOMI bilateral, no conjunctival injection noted Neck: Soft, supple, trach midline Cardiovascular: Regular rate and rhythm no murmurs gallops rubs noted Respiratory: Clear to auscultation bilaterally no rales rhonchi or wheezes noted Abdomen: Soft, nondistended, tenderness to palpation of the right lower quadrant no rebound or guarding on exam, bowel sounds present x 4 Extremities: +5/5 strength noted in the bilateral lower extremities, no pedal edema on exam Neurological: Patient is following commands knew that she was at [facility] year is 2023 Skin: Warm, dry, intact no rashes or lesions noted Const Vital Signs: 02/23/24 16:37 02/23/24 18:48 02/23/24 20:00 Temperature 97.8 F Temperature Source Temporal Pulse Rate 92 80 Respiratory Rate 16 16 Blood Pressure 172/74 H 143/77 H 144/70 H Blood Pressure Mean 106 99 94 Pulse Ox 99 97 Oxygen Delivery Method Room Air 02/23/24 21:46 Temperature Temperature Source Pulse Rate 85 Respiratory Rate 16 Blood Pressure 137/77 H Blood Pressure Mean 97 Pulse Ox 98 Oxygen Delivery Method MDM MDM MDM Narrative Medical decision making narrative: Patient is a 78-year-old female who presents to the emergency department chief complaint of right lower quadrant abdominal pain. Patient will have a workup performed here on the differential diagnose includes but limited to appendicitis, viral gastroenteritis, pancreatitis, ACS. Once workup is obtained reviewed she will be reevaluated. Patient states that she does not need anything for pain or nausea at this point time. Patient CBC reviewed and showed no evidence leukocytosis white blood count normal at 9.5, hemoglobin stable 11.7, plate count normal at 343. Patient sodium normal 137, potassium normal 3.8, creatinine normal at 0.96. Patient's AST and ALT were 20 and 20 respectively, total bilirubin normal at 0.50. Patient's lipase normal at 14, urinalysis reviewed and showed 100 leukocyte esterase 50-100 white cells with 1+ bacteria she does not have any urinary symptoms we will send this for culture. Patient's EKG was reviewed as well and independently interpreted by myself which showed sinus rhythm with a rate of [address] abdomen pelvis with IV contrast was reviewed and showed borderline appendix. Early appendicitis cannot be excluded. Ileus increase stool in the colon. Called and discussed the case with on-call general surgeon Dr. jin who came in and evaluated the patient at bedside she is recommending CT abdomen pelvis with oral contrast. Patient had CT abdomen pelvis with oral contrast this was reviewed by Dr. Jin and states that she is not convinced that this is early appendicitis after reviewing the scans. Patient CT abdomen pelvis with oral contrast was reviewed by radiology and they state that the borderline appendix appears unchanged and does not fill with oral contrast early appendicitis can still not be excluded mild ileus increase stool in the colon. On reevaluation of the patient and repeat abdominal exam the patient does not have any tenderness to palpation in the right lower quadrant and she feels much better would like to go home at this point time. Patient was advised to return with worsening symptoms or other concerns. She will follow-up with general surgery team in the outpatient setting and her primary care physician. Should be given prescription for Bentyl as well. Patient was advised to take MiraLAX to ensure adequate bowel movements. Patient and significant other are agreeable with this plan at bedside all question concerns answered she is discharged home in stable condition. Lab Data Labs: Laboratory Results - last 24 hr 02/23/24 17:26 WBC 9.5 RBC 3.94 L Hgb 11.7 L Hct 36.2 L MCV 91.9 MCH 29.7 MCHC 32.3 RDW Std Deviation 43.9 RDW Coeff of Ankush 13.0 Plt Count 343 MPV 9.6 Immature Gran % (Auto) 0.300 Neut % (Auto) 68.1 Lymph % (Auto) 18.0 L [place] % (Auto) 9.5 Eos % (Auto) 3.5 Baso % (Auto) 0.6 Absolute Neuts (auto) 6.5 Absolute Lymphs (auto) 1.70 Nucleated RBC % 0 Sodium 137 Potassium 3.8 Chloride 103 Carbon Dioxide 31.0 Anion Gap 3 L BUN 24 H Creatinine 0.96 Estim Creat Clear Calc 42.97 Est GFR (MDRD) Af Amer 72 Est GFR (MDRD) Non-Af 59 L BUN/Creatinine Ratio 25.0 H Glucose 90 Calcium 9.0 Total Bilirubin 0.50 AST 20 ALT 20 Alkaline Phosphatase 103 Total Protein 7.4 Albumin 3.7 Globulin 3.7 Albumin/Globulin Ratio 1.0 Lipase 14 Urine Color Straw Urine Clarity Clear Urine pH 7.0 Ur Specific [place] 1.010 Urine Protein Negative Urine Glucose (UA) Normal Urine Ketones Negative Urine Occult Blood Negative Urine Nitrite Negative Urine Bilirubin Negative Urine Urobilinogen Normal Ur Leukocyte Esterase 100 H Urine RBC 0 SEEN Urine WBC 50-100 SEEN Ur Squamous Epith Cells 0-5 SEEN Urine Bacteria 1+ Urine Mucus 0 SEEN Radiography Diagnostic Testing: Clinical Impression(s) from Imaging Studies Abdomen/Pelvis CT 02/23/24 17:12 IMPRESSION: Borderline appendix. Early appendicitis cannot be excluded. Ileus. Increased stool in the colon. Gas in the bladder may suggest recent catheterization or urinary tract infection. Other incidental findings as above. Electronically Signed: Harley Martinez MD at 19:19 EST , ADDENDUM: 02/23/24 2504 IMPRESSION: Borderline appendix. Early appendicitis cannot be excluded. Ileus. Increased stool in the colon. Gas in the bladder may suggest recent catheterization or urinary tract infection. Other incidental findings as above. N.B. : The above Results were Read Back by Harley Martinez MD to Doroteo Kaiser DO, and understanding confirmed on 02/23/2024 19:28:56 (ET). Electronically Signed: Harley Martinez MD at 19:19 EST , Abdomen CT 02/23/24 20:21 IMPRESSION: Borderline appendix appears unchanged and does not fill with oral contrast. Early appendicitis can still not be excluded. Mild ileus. Increased stool in the colon. Electronically Signed: Harley Martinez MD at 23:48 EST , Discharge Plan Triage Chief Complaint: Abd Pain ED Provider: Doroteo Kaiser Dx/Rx/DC Orders Clinical Impression: Abdominal pain Prescriptions: New dicyclomine 10 mg capsule 10 mg PO TID PRN (Reason: abdominal pain) 5 Days Qty: 15 0RF No Action multivitamin Capsule 1 cap PO DAILY atorvastatin 20 mg tablet 20 mg PO DAILY mirabegron [Myrbetriq] 50 mg tablet extended release 24 hr 50 mg PO DAILY escitalopram oxalate 5 mg tablet 5 mg PO QDAY albuterol sulfate 90 mcg/actuation HFA aerosol inhaler 1 - 2 puff inhalation PRN PRN (Reason: Bronchospasm) Qty: 8.5 1RF lisinopril 5 MG tablet 20 mg PO DAILY calcium 600 mg Capsule 600 mg PO DAILY sennosides-docusate sodium [Senexon-S] 8.6-50 mg tablet 2 tab PO DAILY Dulera 100-5 mcg/actuation HFA aerosol inhaler 2 puff INHALATION Q12H Qty: 3 3RF Primary Care Provider: Favio Alfaro Referrals: Favio Alfaro MD [Primary Care Provider] - Kalyani Jin MD [Med Staff - Active Staff] - Activity Restrictions/Additional Instructions: Follow-up with your primary care physician in the outpatient setting. Follow-up with the general surgeon that you referred to. Return with worsening symptoms or any other concerns that we discussed here. Take prescription as prescribed. Use MiraLAX twice a day until having good adequate bowel movements and then switch to once a day until having persistent bowel movements then discontinue. Discontinue if developing diarrhea. Print Language: [place] Disposition Disposition: Home, Self Care
[2024-02-23 17:36] LABS: Mucous, Urine 0 SEEN /hpf (<or=2+); Red Blood Cells-Urine 0 SEEN /hpf (0-5)
[2024-02-23 17:39] LABS: Absolute Neutrophil Count 6.5 X10^3/uL (2.0-7.7); Basophil# 0.06 X10^3/uL; Basophil% 0.6 % (0-1); Eosinophil# 0.33 X10^3/uL; Eosinophils% 3.5 % (0-5); Hematocrit 36.2 % (37-47); Hemoglobin 11.7 g/dL (12.0-15.0); Mean Corp Hgb Conc 32.3 g/dL (32-36); Mean Corpuscular Hgb 29.7 pg (27.0-32.0); Mean Corpuscular Volume 91.9 fL (81-99); Mean Platelet Vol. 9.6 fl (6.2-12.0); Monocyte% 9.5 % (0-10); NRBC Flagged by Analyzer 0 % (0-5); Neutrophil # 6.45 X10^3/uL (2.7-7.7); Neutrophil % 68.1 % (47-70); Platelet Count 343 K/mm3 (150-450); RBC Distribution Width SD 43.9 fl (35.1-43.9); Red Blood Count 3.94 M/mm3 (4.2-5.4); White Blood Count 9.5 K/mm3 (4.4-11.0)
[2024-02-23 17:40] LABS: Color, Urine Straw (Yellow); Glucose, Dipstick Normal (Normal); Ketone-Dipstick Negative (Negative); Leukocyte Esterase-Dipstick 100 /ul (Negative); Nitrite-Dipstick Negative (Negative); Occult Blood-Urine Negative /ul (Negative); Protein-Dipstick Negative (Negative); Urine Bilirubin Dipstick Negative (Negative); Urine Clarity Clear (Clear); Urine Urobilinogen Normal (Normal)
[2024-02-23 17:51] LABS: Bacteria 1+ /hpf (None Seen); Squamous Epithelial Cells - UA 0-5 SEEN /hpf (5-10); White Blood Cells 50-100 SEEN /hpf (0-5)
[2024-02-23 17:55] LABS: AST(SGOT) 20 U/L (15-37); Alanine Aminotransfer ALT/SGPT 20 U/L (13-56); Albumin, Serum 3.7 g/dL (3.2-5.0); Alkaline Phosphatase 103 U/L (45-117); Anion Gap 3 (5-15); BUN 24 mg/dL (7-18); Chloride 103 mmol/L (98-107); Creatinine, Serum 0.96 mg/dL (0.55-1.02); EST Glomerular Filtration Rate 59 mL/min (>60); Est Glom Filt Rate - Afr Amer 72 mL/min (>60); Estimated Creatinine Clearance 42.97 ml/min; Globulin 3.7 g/dL (2.2-4.2); Glucose 90 mg/dL (74-106); Lipase 14 U/L (13-75); Potassium 3.8 mmol/L (3.5-5.1); Protein, Total 7.4 g/dL (6.4-8.2); Sodium Level 137 mmol/L (136-145)
[2024-02-23 18:48] VITALS: BP 143/77
[2024-02-23 20:00] VITALS: BP 144/70; PULSE 80; RESP 16; O2SAT 97
--- NOTE | 2024-02-23 20:21 | CT_ITS ---
STUDY: CT ABDOMEN AND PELVIS WITHOUT CONTRAST REASON FOR EXAM: Female, 78 years old. RLQ pain RADIATION DOSAGE (If Supplied By Facility): CTDIvol = ( 8.42 ) mGy, DLP = ( 363.96 ) mGycm TECHNIQUE: Transaxial images were obtained from the dome of the diaphragm to the symphysis pubis without oral contrast, and without intravenous contrast. Sagittal and coronal images were reconstructed. Individualized dose optimization techniques were used for this CT. The protocol utilizes one or more of the following dose reduction techniques: automated exposure control, adjustment of mA and/or kV according to patient size,and/or use of iterative reconstruction technique. COMPARISON: CT abdomen and pelvis February 23, 2024 FINDINGS: The visualized lung bases are unremarkable. The visualized portions of the heart are within normal limits. Normal liver. Normal gallbladder and extrahepatic biliary system. Normal spleen. Normal pancreas. Normal bilateral adrenal glands. Normal right kidney. Normal left kidney. Normal visualized stomach. Oral contrast with multiple air-fluid levels noted in the small and large bowel. Increased stool and colonic diverticulosis noted. The appendix appears unchanged and does not fill with contrast. It measures up to 6 to 7 mm in diameter. There may be questionable mild stranding of the periappendiceal fat. There is no free air or abscess. Normal abdominal aorta. Normal inferior vena cava. Normal retroperitoneum. Intravenous contrast noted in the bladder. Uterus normal. Normal abdominal wall. Right total hip arthroplasty. CT/Abdomen/Pel W ORAL Cont Only IMPRESSION: Borderline appendix appears unchanged and does not fill with oral contrast. Early appendicitis can still not be excluded. Mild ileus. Increased stool in the colon. Electronically Signed: Harley Martinez MD at 23:48 EST ,
--- NOTE | 2024-02-23 21:41 | HP.PCM.SX_ITS ---
HPI - General General Date of Service: 02/23/24 HPI Narrative REG DORSEY, is a 78 F who presents to the ER due to right lower quadrant pain. Patient states this pain started about 1 PM she had some stabbing pain that would come and go. Patient's also states that he pressed on her right lower quadrant and she had no pain when he palpated however when they drove here she thought she felt better so they drove around a little bit and then she had the pain again, so they came into the ER. Patient has been tolerating clear liquids through the day did not have anything to eat states she was not really that hungry but otherwise denies nausea or vomiting. Patient does have a history of constipation but has been having some bowel movements but they have been hard and small. CT abdomen pelvis showed constipation borderline appendix questionable early appendicitis. Patient has normal white blood cell count no shift. Patient has never had any abdominal surgeries. Had a colonoscopy about 2 years ago that was normal per patient has been. Currently patient denies abdominal pain. Patient has not received anything for abdominal pain or nausea in the ER. [facility] Medical History (Updated 02/23/24 @ 23:[address] Doroteo Kaiser, DO) Anxiety and depression Asthma Hyperlipidemia Hypertension TMJ (dislocation of temporomandibular joint) Breast cancer Obesity Home Medications ?Medication ?Instructions ?Recorded ?Last Taken ?Type lisinopril 5 mg tablet 20 mg PO DAILY 08/05/17 Unknown History multivitamin 1 cap PO DAILY 06/13/19 Unknown History atorvastatin 20 mg tablet 20 mg PO DAILY 03/23/20 Unknown History calcium 600 mg capsule 600 mg PO DAILY 03/28/22 Unknown History sennosides 8.6 mg-docusate sodium 2 tab PO DAILY 07/22/23 Unknown History 50 mg tablet (Senexon-S) mometasone-formoterol HFA 100 2 puff inhalation Q12H #3 ea 08/13/23 Unknown Rx mcg-5 mcg/actuation aerosol inhaler (Dulera) albuterol sulfate 90 mcg/actuation 1 - 2 puff inhalation PRN PRN 09/20/23 Unknown Rx aerosol inhaler Bronchospasm #8.5 grams escitalopram oxalate 5 mg tablet 5 mg PO QDAY 09/20/23 Unknown History mirabegron 50 mg tablet,extended 50 mg PO DAILY 09/20/23 Unknown History release 24 hr (Myrbetriq) dicyclomine 10 mg capsule 10 mg PO TID PRN abdominal pain 5 02/23/24 Unknown Rx days #15 caps Allergy/AdvReac Type Severity Reaction Status Date / Time animal dander Allergy Unknown Verified 02/23/24 16:37 house dust Allergy NEEDS Verified 02/23/24 16:37 FOLLOW-UP mold Allergy NEEDS Verified 02/23/24 16:37 FOLLOW-UP venom-honey bee Allergy Swelling Verified 02/23/24 16:37 Family History Grandmother Cancer Pancreatic Father CHF (congestive heart failure) Grandfather CVA (cerebral vascular accident) Surgical History History of lumpectomy History of toe surgery History of suburethral sling procedure H/O total knee replacement Hip replacement planned Social History (Updated 02/23/24 @ 19:[address] Nasrin Dugan MD) household members: spouse Smoking Status: Never smoker alcohol intake: current details: Occasionally wine. substance use type: does not use Vital Signs Vital Signs Vital Signs: 02/23/24 16:37 02/23/24 18:48 02/23/24 20:00 Temperature 97.8 F Temperature Source Temporal Pulse Rate 92 80 Respiratory Rate 16 16 Blood Pressure 172/74 H 143/77 H 144/70 H Blood Pressure Mean 106 99 94 Pulse Ox 99 97 Oxygen Delivery Method Room Air Weight Weight: 147 lb 11.2 oz Body Mass Index (BMI) 26.2 Physical Exam Const alert, oriented x3 and no apparent distress HEENT normocephalic and head/scalp atraumatic Resp normal respiratory effort Cardio regular rate GI soft to palpation and non-tender; Negative for non-distended GI Narrative: Patient denied any abdominal pain with sitting up leading down or with straight leg raise. Palpation: Negative for guarding Extremity no clubbing, cyanosis or edema Neuro CN's II-XII intact bilaterally Psych mental status grossly normal Results Lab / Micro Data 02/23/24 17:26 02/23/24 17:26 Labs: Laboratory Results - last 24 hr 02/23/24 17:26: WBC 9.5, RBC 3.94 L, Hgb 11.7 L, Hct 36.2 L, MCV 91.9, MCH 29.7, MCHC 32.3, RDW Std Deviation 43.9, RDW Coeff of Ankush 13.0, Plt Count 343, MPV 9.6, Immature Gran % (Auto) 0.300, Neut % (Auto) 68.1, Lymph % (Auto) 18.0 L, [place] % (Auto) 9.5, Eos % (Auto) 3.5, Baso % (Auto) 0.6, Absolute Neuts (auto) 6.5, Absolute Lymphs (auto) 1.70, Nucleated RBC % 0, Sodium 137, Potassium 3.8, Chloride 103, Carbon Dioxide 31.0, Anion Gap 3 L, BUN 24 H, Creatinine 0.96, Estim Creat Clear Calc 42.97, Est GFR (MDRD) Af Amer 72, Est GFR (MDRD) Non-Af 59 L, BUN/Creatinine Ratio 25.0 H, Glucose 90, Calcium 9.0, Total Bilirubin 0.50, AST 20, ALT 20, Alkaline Phosphatase 103, Total Protein 7.4, Albumin 3.7, Globulin 3.7, Albumin/Globulin Ratio 1.0, Lipase 14, Urine Color Straw, Urine Clarity Clear, Urine pH 7.0, Ur Specific [place] 1.010, Urine Protein Negative, Urine Glucose (UA) Normal, Urine Ketones Negative, Urine Occult Blood Negative, Urine Nitrite Negative, Urine Bilirubin Negative, Urine Urobilinogen Normal, Ur Leukocyte Esterase 100 H, Urine RBC 0 SEEN, Urine WBC 50-100 SEEN, Ur Squamous Epith Cells 0-5 SEEN, Urine Bacteria 1+, Urine Mucus 0 SEEN Imaging Radiology Impression Abdomen/Pelvis CT 02/23/24 17:12 IMPRESSION: Borderline appendix. Early appendicitis cannot be excluded. Ileus. Increased stool in the colon. Gas in the bladder may suggest recent catheterization or urinary tract infection. Other incidental findings as above. Electronically Signed: Harley Martinez MD at 19:19 EST , ADDENDUM: 02/23/241934 IMPRESSION: Borderline appendix. Early appendicitis cannot be excluded. Ileus. Increased stool in the colon. Gas in the bladder may suggest recent catheterization or urinary tract infection. Other incidental findings as above. N.B. : The above Results were Read Back by Harley Martinez MD to Doroteo Kaiser DO, and understanding confirmed on 02/23/2024 19:28:56 (ET). Electronically Signed: Harley aMrtinez MD at 19:19 EST , Assessment & Plan Assessment/Plan (1) RLQ abdominal pain: (2) Constipation: PLAN: Plan Did review CT abdomen pelvis personally and with the patient and her . Appendix borderline for size questionable stranding does have a few air bubbles in the proximal and distal portion. On exam patient has no tenderness palpation even with deep palpation in the right lower quadrant when she is lying down sitting up-but currently clinically her exam is not consistent with appendicitis. Discussed with patient and her they are agreeable to repeat a CT scan with p.o. contrast see if that would give us any further evaluation of the appendix. Await repeat CT with p.o. contrast. Addendum: Similar rate to the first calling it 6 to 7 mm in diameter question if there could be some [place] appendiceal fat stranding. However on exam patient does not have any right lower quadrant pain. Did also review her previous CT from 2010 patient's appendix at that time was also 6 to 7 mm on my read. Okay to DC from ER. Kalyani Jin M.D. Pager: [phone] [facility] [address] [place] [address], [address] [place] [address] Office: [phone] Charges/Coding Visit Charges Office Visits / Consults: 98775 ED Visit; High/Urgent Severity
[2024-02-23 21:46] VITALS: BP 137/77; PULSE 85; RESP 16; O2SAT 98
[2024-02-24 00:37] VITALS: BP 123/69; PULSE 75; RESP 18; TEMP 36.7; O2SAT 97
== END 2024-02-24 00:38 | disposition home or self-care (01) ==
PROVIDERS: Emergency Provider Emergency Medicine; PCP Family Medicine; Visit Provider Emergency Medicine
DX: R10.31 Right lower quadrant pain (principal); I10 Essential (primary) hypertension; E78.5 Hyperlipidemia, unspecified; K59.00 Constipation, unspecified; Z85.3 Personal history of malignant neoplasm of breast; J45.909 Unspecified asthma, uncomplicated
CPT/HCPCS: 74176; 74177; 80053; 81001; 83690; 85025; 93005; 99283; Q9967; A4216

== ENCOUNTER 2024-08-06 08:05 | Outpatient (CLI) | payer MEDICARE, SELFPAY ==
[2024-08-06 12:11] LABS: ALB/GLOB Ratio 1.4 RATIO (0.9-2.4); AST(SGOT) 30 U/L (<=31); Alanine Aminotransfer ALT/SGPT 18 U/L (<=34); Albumin, Serum 4.1 g/dL (3.4-4.8); Alkaline Phosphatase 105 U/L (35-104); Anion Gap 11 (5-15); BUN 19 mg/dL (4-19); BUN/Creat Ratio 19.5 RATIO (10-20); Calcium,Total 9.3 mg/dL (7.6-11.0); Chloride 103 mmol/L (98-108); Cholesterol 158 mg/dL (<=200); Creatinine, Serum 0.97 mg/dL (0.70-1.20); EST Glomerular Filtration Rate 59 (>60); Glucose 106 mg/dL (70-99); High Density Lipoprotein 59 mg/dL; Low Density Lipoprotein Calc. 81 mg/dL; Protein, Total 7.1 g/dL (5.9-8.4); Sodium Level 140 mmol/L (133-145); Total Bilirubin 0.63 mg/dL (0.00-1.30); Triglycerides 92 mg/dL; Very Low Density Lipoprotein 18 mg/dL (5-40); cholesterol:hdl ratio screen 2.69
== END 2024-08-06 23:59 | disposition home or self-care (01) ==
LOC: MTLAB 08:07
PROVIDERS: PCP Family Medicine; Referring Provider Family Medicine; Visit Provider Family Medicine
DX: E78.5 Hyperlipidemia, unspecified (principal); E03.9 Hypothyroidism, unspecified; E55.9 Vitamin D deficiency, unspecified
CPT/HCPCS: 36415; 80053; 80061; 82306; 84443

== ENCOUNTER → 2024-09-26 | Outpatient (CLI) | payer MEDICARE, SELFPAY ==
[2024-09-26 15:58] LABS: Anion Gap 11 (5-15); BUN 26 mg/dL (4-19); BUN/Creat Ratio 25.9 RATIO (10-20); Calcium,Total 9.2 mg/dL (7.6-11.0); Carbon Dioxide 27.6 mmol/L (21.0-32.0); Chloride 102 mmol/L (98-108); EST Glomerular Filtration Rate 57 (>60); Glucose 153 mg/dL (70-99); Sodium Level 141 mmol/L (133-145)
[2024-09-29 15:09] LABS: Lyme Scn Total Ab w/Rflx Negative (Negative)
== END | disposition home or self-care (01) ==
LOC: MTLAB 14:05
PROVIDERS: PCP Family Medicine; Referring Provider Family Medicine; Visit Provider Family Medicine
DX: I10 Essential (primary) hypertension (principal); W57.XXXA Bitten or stung by nonvenomous insect and other nonvenomous arthropods, initial encounter
CPT/HCPCS: 36415; 80048; 86618

== ENCOUNTER 2025-01-27 08:43 | Emergency (ER) | payer MEDICARE, SELFPAY ==
[2025-01-27] VITALS (8 sets, daily range): BP systolic 156–200; BP diastolic 62–76; PULSE 81–88; RESP 16–19; TEMP 36.9; O2SAT 97–98; BMI 26.5
[2025-01-27 09:17] LABS: Hematocrit 34.0 % (37-47); Hemoglobin 11.1 g/dL (12.0-15.0); Immature Granulocytes Count 0.010 X10^3/uL (0.0-0.0); Mean Corp Hgb Conc 32.6 g/dL (32-36); Mean Corpuscular Volume 89.7 fL (81-99); Mean Platelet Vol. 9.1 fl (6.2-12.0); NRBC Flagged by Analyzer 0 % (0-5); Platelet Count 296 K/mm3 (150-450); RBC Distribution Width CV 12.8 % (11.6-14.6); RBC Distribution Width SD 42.2 fl (35.1-43.9); Red Blood Count 3.79 M/mm3 (4.2-5.4); White Blood Count 6.3 K/mm3 (4.4-11.0)
[2025-01-27 09:29] LABS: D-Dimer Quantitative (DVT/PE) 0.76 FEU/ug/m (0.27-0.49)
[2025-01-27 09:34] LABS: Troponin T High Sensitivity 21 ng/L (<=14)
[2025-01-27 09:36] LABS: Anion Gap 10 (5-15); BUN 20 mg/dL (4-19); BUN/Creat Ratio 20.4 RATIO (10-20); Calcium,Total 9.0 mg/dL (7.6-11.0); Carbon Dioxide 27.0 mmol/L (21.0-32.0); Chloride 101 mmol/L (98-108); Estimated Creatinine Clearance 40.06 ml/min (50-250); Glucose 95 mg/dL (70-99); Potassium 4.2 mmol/L (3.3-5.1)
== END 2025-01-27 10:19 | disposition home or self-care (01) ==
PROVIDERS: Emergency Provider Emergency Medicine; PCP Family Medicine; Visit Provider Emergency Medicine
DX: S40.861A Insect bite (nonvenomous) of right upper arm, initial encounter (principal); L03.113 Cellulitis of right upper limb; I10 Essential (primary) hypertension; Z79.899 Other long term (current) drug therapy; E78.5 Hyperlipidemia, unspecified; J45.909 Unspecified asthma, uncomplicated; R35.0 Frequency of micturition; W57.XXXA Bitten or stung by nonvenomous insect and other nonvenomous arthropods, initial encounter
CPT/HCPCS: 71046; 80048; 84484; 85025; 85379; 93005; 99284; A4216